=== PATIENT | female | born 1945 | race Caucasian/White ===

== ENCOUNTER 2020-02-10 14:52 | Inpatient (IN) ==
[2020-02-10 15:01] VITALS: BMI 24.2
[2020-02-10 15:21] LABS: ABG BASE EXCESS 2.9 mmol/L (-2.0-2.0); ABG HCO3 25.3 mmol/L (22-26)
[2020-02-10 15:22] LABS: ABG ALLEN TEST POS
--- NOTE | 2020-02-10 15:40 | DR.NAUSEAF ---
HPI Time Seen Time Seen by Provider: 02/10/20 15:05 Primary Care Physician Primary Care Physician: DR KWAKU VELAZQUEZ HPI Comment HPI Comment: PATIENT IS 74YR OLD FEMALE IN ER WITH COUGH, CONGESTION, BODYACHES AND SOB TIMES ONE WEEK. SHE IS WEAK, TIRED AND HAVE LOW OXYGEN SATURATION. SHE TOOK ANTIBIOTIC AND STERIOD SHE WAS COVID 19 VIRUS POSITIVE SINCE SUNDAY BUT CONTINUE TO GET WORSE. PATIENT IS NAUSEATED BUT NO VOMITING OR DIARRHEA. NO DYSURIA. Complaints Chief Complaint Doctors Comments: COUGH, WEAKNESS, BODY ACHES, SOB AND LOW OXYGEN SATURATION. Chief Complaint:: COVID Self Treatment fo Chief Complaint: STEROIDS, ZPACK COVID-19 Coronavirus risk:travel/contact w/high risk person: Yes Has patient experienced Coronavirus symptoms: Yes Coronavirus symptoms experienced: Coughing and Shortness of Breath Reviewed Nurses Notes Reviewed: Yes Source History Provided: Patient Mode of Arrival Mode of Arrival: Wheelchair Timing Onset of Chief Complaint: 02/01/20 Duration Duration: 1WK Context Onset: None (NAUSEATED.) Recent: None History of: None Quality Quality: Other (NONE.) Associated Signs and Symptoms Abdominal Pain Quality: Aching Symptoms: Anorexia PMH PMH Past Medical History: Yes Past Medical History: Arthritis and Hypothyroidism Past Surgical History: Yes 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 Past Surgical History Comment: hysterectomy Family History History of Family Medical Conditions: Yes Family Medical History: Diabetes Mellitus Social History Type of Tobacco Use: None Does any household member use tobacco: No Alcohol Use: None Do you use any recreational Drugs:: No Lives With: Spouse Lives Where: Home Travel Risk Coronavirus risk:travel/contact w/high risk person: Yes Has patient experienced Coronavirus symptoms: Yes Coronavirus symptoms experienced: Coughing and Shortness of Breath Infectious screening In the last 2 months have you had wt loss of >10#?: NO Have you had fever, night sweats or hemotysis?: No Have you traveled outside the country in the last 6 months?: No Isolation: Droplet ROS Review of Systems Constitutional: See HPI, Weakness, Fatigue and Loss of Appetite; negative Fever Eyes: No Symptoms Reported and See HPI ENTM: See HPI, Nose Discharge and Nose Congestion Respiratoy: See HPI, Moist Cough and Short of Breath; negative Wheezing Cardiovascular: No Symptoms Reported, See HPI, Chest Pain (TIGHTNESS.) and Edema Gastrointestinal/Abdominal: See HPI and Nausea Genitourinary: No Symptoms Reported and See HPI Neurological: See HPI, Headache and Weakness Musculoskeletal: See HPI, Back Pain and Muscle Pain Integumentary: No Symptoms Reported and See HPI; negative Change in Color, Rash and Juandice Hematologic/Lymphatic: No Symptoms Reported and See HPI; negative Easy Bruising and Swollen Glands Endocrine: See HPI, Increased Thirst and Decreased Appetite; negative Increased Urine Psychiatric: No Symptoms Reported and See HPI All Other Systems: Reviewed and Negative PE Vital Signs Vitals: Temperature 98.4 F Pulse Rate [Right Radial] 67 Pulse Rate 80 Respiratory Rate 20 Blood Pressure [Left Arm] 116/68 Blood Pressure 164/77 O2 Sat by Pulse Oximetry 88 General Limitations: No Limitations General Appearance: Alert and In No Apparent Distress Head Head Exam: Normal Inspection and Atraumatic Eyes Eye exam: Normal Appearance and PERRL; negative Scleral Icterus and Conjunctival Injection ENT ENT Exam: Normal Exam, Normal Oropharynx, Normal External Ear Exam and TM's Normal Bilaterally Neck Neck Exam: Normal Inspection and Trachea Midline; negative Tenderness and Lymphadenopathy Chest Chest Inspection: Normal Inspection and Symmetric Chest Wall Rise; negative Tenderness Respiratory Respiratory Exam: Normal Lung Sounds Bilat; negative Accessory Muscle Use, Chest Wall Tenderness and Respiratory Distress Respiratory Exam: Bilateral: Clear to Auscultation Cardiovascular Cardiovascular Exam: Regular Rate, Normal Rhythm and Normal Heart Sounds; negative Systolic Murmur and Diastolic Murmur Abdominal Exam Abdominal Exam: Normal Inspection, Normal Bowel Sounds and Soft; negative Tenderness Rectal Rectal Exam: Deferred External Exam: Female: Deferred : Speculum Exam (Female): Deferred : Bimanual Exam (female): Deferred Extremities Extremities Exam: Normal Inspection and Normal Capillary Refill; negative Calf Tenderness Back Back Exam: Normal Inspection; negative (R) CVA Tenderness and (L) CVA Tenderness Neurologic Neurological Exam: Alert, Oriented X3 and CN II-XII Intact; negative Motor Sen andreina Deficit Psychiatric Psychiatric Exam: Normal Affect and Normal Mood Skin Skin Exam: Dry; negative Rash MDM Additional Information Obtained Additional Information Obtained From: Old Records Differential Diagnosis Differential Diagnosis: Considerations may Include:: Other (PNEUMONIA, UTI, COVID 19 VIRUS INFECTION AND WEAKNES, HYPOXIA.) COURSE Treatment Treatment: SEE ORDERS. NS 1L 125CC/HR, DUO NEB, SOLUMEDROL 125MG IV, ROCEPHIN 1GM IVPB AND LEVAQUIN 750MG IVPB. Consultation Consultation Comments: DISCUSSED PATIENT WITH CITLALY AND HE WILL ADMIT PATIENT. Education/Counseling Education/Counseling: Patient Educated On: Treatment and Diagnosis ROR Labs Reviewed Laboratory Results Reviewed?: Yes Result Diagrams: 02/28/20 07:30 02/28/20 05:00 Laboratory: 02/10/20 16:05 Blood Blood Culture - Final 02/10/20 16:01 Blood Blood Culture - Final WBC 11.6 X10^3/uL (3.6-10.0) H 02/10/20 16:01 RBC 5.02 X10^6/uL (3.5-5.4) 02/10/20 16:01 Hgb 14.7 g/dL (12.0-16.0) 02/10/20 16:01 Hct 45.0 % (36.0-47.0) 02/10/20 16:01 MCV 89.7 fL (80.0-100.0) 02/10/20 16:01 MCH 29.3 pg (27.0-34.0) 02/10/20 16:01 MCHC 32.6 g/dL (33.0-35.0) L 02/10/20 16:01 RDW 13.9 % (11.6-16.5) 02/10/20 16:01 Plt Count 283 X10^3/uL (150.0-450.0) 02/10/20 16:01 MPV 8.4 fL (7.4-11.0) 02/10/20 16:01 Neut % (Auto) 87.3 % (42.0-75.0) H 02/10/20 16:01 Lymph % (Auto) 6.3 % (21.0-51.0) L 02/10/20 16:01 [place] % (Auto) 5.9 % (0.0-13.0) 02/10/20 16:01 Eos % (Auto) 0.4 % (0.9-2.9) L 02/10/20 16:01 Baso % (Auto) 0.1 % (0.2-1.0) L 02/10/20 16:01 Neut # (Auto) 10.1 x10^3/uL (2.2-4.8) H 02/10/20 16:01 Lymph # (Auto) 0.7 X10^3/uL (1.3-2.9) L 02/10/20 16:01 [place] # (Auto) 0.7 x10^3/uL (0.3-0.8) 02/10/20 16:01 Eos # (Auto) 0.0 x10^3/uL (0.0-0.2) 02/10/20 16:01 Baso # (Auto) 0.0 X10^3/uL (0.0-0.1) 02/10/20 16:01 Absolute Nucleated RBC 0.0 /100WBC 02/10/20 16:01 D-Dimer 2.90 ug/ml (0.0-0.57) H* 02/10/20 16:01 Sample Site Rra 02/10/20 15:19 ABG pH 7.520 (7.35-7.45) H 02/10/20 15:19 ABG pCO2 31.0 mmHg (35.0-45.0) L 02/10/20 15:19 ABG pO2 49.0 mmHg (80.0-100.0) L* 02/10/20 15:19 ABG HCO3 25.3 mmol/L (22-26) 02/10/20 15:19 ABG O2 Saturation 89.0 % (90-100) L 02/10/20 15:19 ABG Base Excess 2.9 mmol/L (-2.0-2.0) H 02/10/20 15:19 Gage Test Pos 02/10/20 15:19 A-a Gradient 62.0 mmHg 02/10/20 15:19 FiO2 21.0 02/10/20 15:19 Blood Gas Comments Pt giorgi well eb 02/10/20 15:19 Sodium 130 mmol/L (136-145) L 02/10/20 16:01 Corrected Sodium TNP 02/10/20 16:01 Potassium 3.9 mmol/L (3.5-5.1) 02/10/20 16:01 Chloride 94 mmol/L (98-107) L 02/10/20 16:01 Carbon Dioxide 28.1 mmol/L (21-32) 02/10/20 16:01 BUN 17 mg/dL (7-18) 02/10/20 16:01 Creatinine 0.84 mg/dL (0.55-1.02) 02/10/20 16:01 Est GFR (MDRD) Af Amer > 60 (>60) 02/10/20 16:01 Est GFR (MDRD) Non-Af > 60 (>60) 02/10/20 16:01 Glucose 88 mg/dL (65-99) 02/10/20 16:01 Lactic Acid 1.6 mmol/L (0.4-2.0) 02/10/20 16:01 Calcium 8.8 mg/dL (8.5-10.1) 02/10/20 16:01 Corrected Calcium 9.7 mg/dL (8.5-10.1) 02/10/20 16:01 Total Bilirubin 1.00 mg/dL (0.2-1.0) 02/10/20 16:01 AST 67 Units/L (15-37) H 02/10/20 16:01 ALT 64 Units/L (12-78) 02/10/20 16:01 Alkaline Phosphatase 125 Units/L (46-116) H 02/10/20 16:01 Creatine Kinase 52 Units/L (26-192) 02/10/20 16:01 CK-MB (CK-2) < 1.0 ng/mL (0-4.0) 02/10/20 16:01 CK/CKMB % Calc 1.9 % (<4) 02/10/20 16:01 Troponin I < 0.02 ng/mL (0-1.5) 02/10/20 16:01 Total Protein 7.4 g/dL (6.4-8.2) 02/10/20 16:01 Albumin 2.9 g/dL (3.4-5.0) L 02/10/20 16:01 Globulin 4.5 g/dL (2.5-4.5) 02/10/20 16:01 Albumin/Globulin Ratio 0.6 Ratio (1.1-2.1) L 02/10/20 16:01 XRAY XRAY Interpreted by: Radiologist (REPORT NOTED AND DISCUSSED WITH PATIENT.) and Self EKG Rate: 76 [place]: Normal Rhythm: NSR Block: None Hypertrophy: None ST: Nonsp Opioid Opioid Risk Tool Age (Alberto box if 16-45): No History of Preadolescent Sexual Abuse: No Total: 0 Total Score Risk Category: Low Risk Copyright: Chuck HALL predicting aberrant behaviors Diagnosis Discharge Problem: Hypoxia, COVID-19 virus infection Pneumonia Qualifiers: Pneumonia type: due to unspecified organism Laterality: bilateral Lung location: lower lobe of lung Qualified Code(s): J18.9 - Pneumonia, unspecified organism
[2020-02-10 16:22] LABS: BASOPHILS % (AUTO) 0.1 % (0.2-1.0); EOSINOPHILS % (AUTO) 0.4 % (0.9-2.9); HEMOGLOBIN 14.7 g/dL (12.0-16.0); LYMPHOCYTES # (AUTO) 0.7 X10^3/uL (1.3-2.9); LYMPHOCYTES % (AUTO) 6.3 % (21.0-51.0); MEAN CORPUSCULAR HEMOGLOBIN 29.3 pg (27.0-34.0); MEAN CORPUSCULAR HGB CONC 32.6 g/dL (33.0-35.0); MEAN CORPUSCULAR VOLUME 89.7 fL (80.0-100.0); MEAN PLATELET VOLUME 8.4 fL (7.4-11.0); MONOCYTES # (AUTO) 0.7 x10^3/uL (0.3-0.8); MONOCYTES % (AUTO) 5.9 % (0.0-13.0); NEUTROPHILS # (AUTO) 10.1 x10^3/uL (2.2-4.8); NEUTROPHILS % (AUTO) 87.3 % (42.0-75.0); PLATELET COUNT 283 X10^3/uL (150.0-450.0); RED BLOOD COUNT 5.02 X10^6/uL (3.5-5.4); RED CELL DISTRIBUTION WIDTH 13.9 % (11.6-16.5); WHITE BLOOD COUNT 11.6 X10^3/uL (3.6-10.0)
--- NOTE | 2020-02-10 16:25 | RAD ---
EXAM: CHEST X-RAYHISTORY: COVID-19 positive. Shortness of breath.TECHNIQUE: PA and lateral chest x-ray.COMPARISON: None available.FINDINGS:There is minimal prominence of the bronchopulmonary markings; differential diagnoses includes minimal noncardiogenic pulmonary congestion, bronchitis, and mild interstitial pneumonia in the appropriate clinical setting. Clinical correlation is advised.No focal lung consolidation/mass, pleural effusion, or pneumothorax is seen.The heart size and mediastinum are within normal limits. The visualized bony structures are within normal limits.IMPRESSION:1. Minimal prominence of the bronchopulmonary markings; DDX includes (but is not limited to) minimal noncardiogenic pulmonary congestion, bronchitis, and mild interstitial pneumonia in the appropriate clinical setting.2. Recommend clinical correlation and appropriate follow-up x-ray evaluation to ensure complete clearance as clinically warranted.3. Consider follow up noncontrast chest CT to rule out Covid pneumonia if clinically warranted.Electronically signed by: Brynn Bryan (Feb 10, 2020 16:23:23)
[2020-02-10 16:39] LABS: LACTIC ACID 1.6 mmol/L (0.4-2.0)
[2020-02-10 16:41] LABS: BLOOD UREA NITROGEN 17 mg/dL (7-18); CALCIUM 8.8 mg/dL (8.5-10.1); CARBON DIOXIDE 28.1 mmol/L (21-32); CHLORIDE 94 mmol/L (98-107); CREATININE 0.84 mg/dL (0.55-1.02); SODIUM 130 mmol/L (136-145); TROPONIN I < 0.02 ng/mL (0-1.5); eGFR NON BLACK RACES > 60 (>60)
[2020-02-10 16:45] LABS: ALANINE AMINOTRANSFERASE 64 Units/L (12-78); ALBUMIN 2.9 g/dL (3.4-5.0); ALKALINE PHOSPHATASE 125 Units/L (46-116); ASPARTATE AMINO TRANSFERASE 67 Units/L (15-37); CKMB % 1.9 % (<4); COR CA(FOR HYPOALB) 9.7 mg/dL (8.5-10.1); CREATINE KINASE 52 Units/L (26-192); CREATINE KINASE MB < 1.0 ng/mL (0-4.0); TOTAL PROTEIN 7.4 g/dL (6.4-8.2)
[2020-02-10] MEDS ORDERED: NS 100 ML IV 100 ML IV ONE (17:19)
--- NOTE | 2020-02-10 18:08 | CT ---
EXAM: CTA CHEST WITH INTRAVENOUS CONTRASTHISTORY: Shortness of breath. Hypoxia. Elevated D-dimer.TECHNIQUE: Spiral axial CT images are obtained through the chest with the administration of intravenous contrast. Coronal, sagittal and 3D MIP images are reformatted.DOSIMETRY: Total DLP 473.9 mGycm; CTDI 31.7 mGyCOMPARISON: None available.FINDINGS:CARDIOVASCULAR: There is no evidence for pulmonary embolic disease. The heart size and mediastinal vascular structures are within normal limits. There is aortic atherosclerosis seen. No thoracic aortic aneurysm or dissection is noted.MEDIASTINUM AND KISHAN: There is a small hiatal hernia (4.9 cm CC by 3.7 cm transverse by 4 cm AP). No mass lesion, lymphadenopathy, emphysema, or abnormal fluid collection is seen.LUNGS: There are extensive bilateral patchy groundglass parenchymal infiltrates which may represent acute Covid pneumonia in the appropriate clinical setting; nonspecific finding; DDx includes airspace disease (with filling of alveoli, e.g. with fluid, pus, hemorrhage, or tumor cells) and interstitial lung disease (e.g. interstitial edema, interstitial pneumonia, and interstitial fibrosis). Clinical correlation is advised. Correlation with a high resolution noncontrast chest CT may be beneficial. There is no lung mass, lung nodule, or endobronchial obstructing lesion seen. No pleural effusion or pneumothorax is evident.CHEST WALL: There are no chest wall lesions seen. T9/10 and T10/T11: Severe multilevel DDD marked by severe disc space narrowing, vacuum disc phenomenon, endplate sclerosis, and anterior lateral marginal osteophytosis. The visualized bony structures are within normal limits. No axillary lymphadenopathy is noted.UPPER ABDOMEN: Limited views through the upper abdomen demonstrate no gross acute abnormality.IMPRESSION:1. Extensive bilateral groundglass parenchymal infiltrates in keeping with acute Covid pneumonia in the appropriate clinical setting; see DDx above.2. No evidence for PE, aortic aneurysm or aortic dissection.3. No endobronchial obstructing lesion, pleural effusion, or pneumothorax seen.4. No suspicious mass or lymphadenopathy.5. Small hiatal hernia (4.9 cm CC by 3.7 cm transverse by 4 cm AP).6. T9/10 and T10/T11: Severe multilevel DDD marked by severe disc space narrowing, vacuum disc phenomenon, endplate sclerosis, and anterior lateral marginal osteophytosis.Electronically signed by: Brynn Bryan (Feb 10, 2020 18:06:49)
[2020-02-10] MEDS ORDERED: SOLU-Medrol 125 MG VIAL IVP ONE (20:27)
[2020-02-10] MEDS ORDERED: ROCEPHIN 1 GRAM IV PREMIX 1 G/50 ML IV.SOLN. IV ONE (20:28)
[2020-02-10] MEDS ORDERED: DUONEB 0.5 MG/3 MG (3 mL) NEB ONE ×2 (20:32→20:53)
[2020-02-10] MEDS ORDERED: SOLU-Medrol 125 MG VIAL ONE (20:49)
[2020-02-10] MEDS ORDERED: ROCEPHIN 1 GRAM IV PREMIX 0 G/0 ML IV.SOLN. IV ONE ×2 (20:50→23:16)
[2020-02-10] MEDS ORDERED: LEVAQUIN PREMIX IV 750 MG 750 MG/150 ML BAG IV SCH (21:00)
[2020-02-10] MEDS ORDERED: TUSSIONEX PENNKINETIC SUSP PO PRN (22:43)
[2020-02-10] MEDS ORDERED: REMDESIVIR 200 MG in NS 250 ML IV 250 ML IV SCH (22:43)
[2020-02-10] MEDS ORDERED: TORADOL 30 MG VIAL IVP ONE (23:03)
[2020-02-10] MEDS ORDERED: REMDESIVIR IV ONE (23:15)
[2020-02-10] MEDS ORDERED: TORADOL 30 MG VIAL ONE (23:15)
[2020-02-10] MEDS ORDERED: LOVENOX INJ 30 MG SYR SC ONE (23:16)
[2020-02-10] MEDS ORDERED: LEVAQUIN PREMIX IV 750 MG 750 MG/150 ML BAG IV ONE (23:16)
[2020-02-10] MEDS ORDERED: NS 250 ML IV 250 ML IV ONE (23:18)
[2020-02-10] MEDS ORDERED: NS 1000 ML 1,000 ML ONE (23:29)
[2020-02-10] MEDS: LOVENOX INJ 30 MG SYR SC SCH (23:40)
[2020-02-10] MEDS: NS 1000 ML 1,000 ML IV SCH (23:40)
[2020-02-10] MEDS: PEPCID TAB 20 MG PO SCH (23:41)
[2020-02-10] MEDS: ASCORBIC ACID INJ MULTI-DOSE VIAL 1,500 MG in NS 100 ML IV 100 ML IV SCH (23:41)
[2020-02-10] MEDS: ROBITUSSIN DM PO SCH (23:42)
[2020-02-11] MEDS: ZINC SULFATE PO SCH ×3 (01:05→21:11)
[2020-02-11] MEDS ORDERED: ASCORBIC ACID INJ MULTI-DOSE VIAL IV ONE ×3 (02:46→20:13)
[2020-02-11] MEDS ORDERED: NS 100 ML IV 100 ML IV ONE ×4 (02:47→20:13)
[2020-02-11] MEDS: ASCORBIC ACID INJ MULTI-DOSE VIAL 1,500 MG in NS 100 ML IV 100 ML IV SCH ×4 (03:40→21:12)
[2020-02-11 05:35] LABS: ABG BASE EXCESS 2.9 mmol/L (-2.0-2.0); ABG HCO3 25.5 mmol/L (22-26)
[2020-02-11 05:36] LABS: ABG ALLEN TEST POS
[2020-02-11 06:13] LABS: BASOPHILS % (AUTO) 0.1 % (0.2-1.0); EOSINOPHILS % (AUTO) 0.1 % (0.9-2.9); HEMATOCRIT 39.5 % (36.0-47.0); HEMOGLOBIN 13.3 g/dL (12.0-16.0); LYMPHOCYTES # (AUTO) 0.5 X10^3/uL (1.3-2.9); LYMPHOCYTES % (AUTO) 7.9 % (21.0-51.0); MEAN CORPUSCULAR HEMOGLOBIN 30.3 pg (27.0-34.0); MEAN CORPUSCULAR HGB CONC 33.7 g/dL (33.0-35.0); MEAN CORPUSCULAR VOLUME 90.1 fL (80.0-100.0); MEAN PLATELET VOLUME 8.7 fL (7.4-11.0); MONOCYTES # (AUTO) 0.2 x10^3/uL (0.3-0.8); MONOCYTES % (AUTO) 3.2 % (0.0-13.0); NEUTROPHILS # (AUTO) 5.6 x10^3/uL (2.2-4.8); NEUTROPHILS % (AUTO) 88.7 % (42.0-75.0); PLATELET COUNT 275 X10^3/uL (150.0-450.0); RED BLOOD COUNT 4.38 X10^6/uL (3.5-5.4); RED CELL DISTRIBUTION WIDTH 13.9 % (11.6-16.5); WHITE BLOOD COUNT 6.3 X10^3/uL (3.6-10.0)
[2020-02-11 06:18] LABS: ALANINE AMINOTRANSFERASE 52 Units/L (12-78); ALBUMIN 2.2 g/dL (3.4-5.0); ALKALINE PHOSPHATASE 107 Units/L (46-116); ASPARTATE AMINO TRANSFERASE 46 Units/L (15-37); BLOOD UREA NITROGEN 15 mg/dL (7-18); CALCIUM 8.3 mg/dL (8.5-10.1); CARBON DIOXIDE 25.8 mmol/L (21-32); CHLORIDE 95 mmol/L (98-107); COR CA(FOR HYPOALB) 9.7 mg/dL (8.5-10.1); COR NA(FOR HYPERGLY) 132 mmol/L (136-145); CREATININE 0.74 mg/dL (0.55-1.02); SODIUM 131 mmol/L (136-145); TOTAL PROTEIN 6.3 g/dL (6.4-8.2); eGFR NON BLACK RACES > 60 (>60)
[2020-02-11] MEDS ORDERED: VITAMIN A PO SCH (09:00)
[2020-02-11] MEDS ORDERED: VITAMIN D (1.25MG) PO SCH (09:00)
[2020-02-11] MEDS ORDERED: ZINC SULFATE ONE ×2 (09:19→20:11)
[2020-02-11] MEDS ORDERED: DECADRON TAB ONE (09:19)
[2020-02-11] MEDS ORDERED: PEPCID TAB 20 MG ONE ×2 (09:19→20:11)
[2020-02-11] MEDS ORDERED: TRICOR TAB 160 MG ONE (09:19)
[2020-02-11] MEDS ORDERED: LOVENOX INJ 30 MG SYR SC ONE ×2 (09:20→20:12)
[2020-02-11] MEDS ORDERED: ROBITUSSIN DM ONE ×3 (09:20→20:12)
[2020-02-11] MEDS: LIPITOR TAB 40 MG PO SCH (09:31)
[2020-02-11] MEDS: DECADRON TAB PO SCH (09:31)
[2020-02-11] MEDS: PEPCID TAB 20 MG PO SCH ×2 (09:32→21:12)
[2020-02-11] MEDS: LOVENOX INJ 30 MG SYR SC SCH ×2 (09:32→21:10)
[2020-02-11] MEDS: TRICOR TAB 160 MG PO SCH (09:33)
[2020-02-11] MEDS: ROBITUSSIN DM PO SCH ×4 (09:33→21:10)
[2020-02-11] MEDS: VSL#3 PO SCH (09:34)
[2020-02-11] MEDS ORDERED: ZOFRAN INJ 4 MG VIAL ONE ×2 (09:51→23:07)
[2020-02-11] MEDS ORDERED: TYLENOL 500 MG TAB EXTRA STRENGTH PO ONE ×2 (09:51→23:07)
[2020-02-11] MEDS: DUONEB 0.5 MG/3 MG (3 mL) NEB SCH ×4 (09:57→21:23)
[2020-02-11] MEDS: ZOFRAN INJ 4 MG VIAL IVP PRN ×2 (10:00→23:30)
[2020-02-11] MEDS: TYLENOL 500 MG TAB EXTRA STRENGTH PO PRN ×3 (10:51→23:28)
--- NOTE | 2020-02-11 13:25 | DR.H&P ---
H&P History & Physical for Day of: H&P Date: 02/11/20 Chief Complaint Chief Complaint: Shortness of breath Fever, chills, generalized weakness Allergies Allergies Allergy/AdvReac Type Severity Reaction Status Date / Time bacitracin Allergy Verified 02/10/20 17:21 [From Neosporin ([id number])] cephalexin [From Keflex] Allergy Verified 02/10/20 17:21 neomycin Allergy Verified 02/10/20 17:21 [From Neosporin ([id number])] ofloxacin [From Floxin] Allergy Verified 02/10/20 17:21 polymyxin B Allergy Verified 02/10/20 17:21 [From Neosporin ([id number])] History of Present Illness History of Present Illness: Pt is a 74 year old female past medical history Hypothyroidism, presenting with fever, chills, shortness of breath, and weakness for the past week. She reports being treated with Z-pack and steroids but did have any improvement in symptoms. Labs/imaging: COVID-19 positive(02/10), Wbc 11.6>6.3, Hgb 13.3, Plt 275, D-dimer 2.90, Na 131, K 4.4, Cr 0.74, Glucose 154, CRP 140, Troponin negative, AB.52/31/49/25/89% on RA, repeat was 7.51/32/66/25/95% on FiO2 28%. CXR: 1.Minimal prominence of the bronchopulmonary markings; DDX includes (but is not limited to) minimal noncardiogenic pulmonary congestion, bronchitis, and mild interstitial pneumoniain the appropriate clinical setting. 2. Recommend clinical correlation and appropriate follow-up x- ray evaluation to ensure complete clearance as clinically warranted. 3. Consider follow up noncontrast chest CT to rule out Covid pneumonia if clinically warranted. CTA Chest: 1.Extensive bilateral groundglass parenchymal infiltrates in keeping with acute Covid pneumonia in the appropriate clinical setting; see DDx above. 2. No evidence for PE, aortic aneurysm or aortic dissection. 3. No endobronchial obstructing lesion, pleural effusion, or pneumothorax seen. 4. No suspicious mass or lymphadenopathy. 5. Small hiatal hernia (4.9 cm CC by 3.7 cm transverse by 4 cm AP). 6. T9/10 and T10/T11: Severe multilevel DDD marked by severe disc space narrowing, vacuum disc phenomenon, endplate sclerosis, and anterior lateral marginal osteophytosis. Will start patient on: Remdesivir, Decadron, Bronchodilators, Antibiotics: Levaquin, IVF@KVO, immune supporting supplements, supplemental O2, I/S, Respiratory therapy consult, Pneumonia protocol. Pt is currently on 3L nasal cannula. Restart home medications. Will continue to monitor and follow up labs/imaging in the morning. Time spent on clinical assessment, reviewing labs and imaging, decision making, and documentation greater than 45 minutes. Past Medical History Past Medical History: Arthritis and Hypothyroidism Past Surgical History Surgical History: Hysterectomy Family History Family Medical History: Diabetes Mellitus, Cancer, NH and Hypertension Social History Does patient currently use any type of tobacco product: No Have you used tobacco products in the last 12 months: No Type of Tobacco Use: None Does any household member use tobacco: No Alcohol Use: None Drug Use: None Medications Home Medications: bacitracin [From Neosporin ([id number])] Allergy (Verified 02/10/20 17:21) cephalexin [From Keflex] Allergy (Verified 02/10/20 17:21) neomycin [From Neosporin ([id number]-iwz-zryit)] Allergy (Verified 02/10/20 17:21) ofloxacin [From Floxin] Allergy (Verified 02/10/20 17:21) polymyxin B [From Neosporin ([id number])] Allergy (Verified 02/10/20 17:21) Labs Result Diagrams: 02/11/20 04:20 02/11/20 04:20 Labs: Laboratory WBC 6.3 X10^3/uL (3.6-10.0) 02/11/20 04:20 RBC 4.38 X10^6/uL (3.5-5.4) 02/11/20 04:20 Hgb 13.3 g/dL (12.0-16.0) 02/11/20 04:20 Hct 39.5 % (36.0-47.0) 02/11/20 04:20 MCV 90.1 fL (80.0-100.0) 02/11/20 04:20 MCH 30.3 pg (27.0-34.0) 02/11/20 04:20 MCHC 33.7 g/dL (33.0-35.0) 02/11/20 04:20 RDW 13.9 % (11.6-16.5) 02/11/20 04:20 Plt Count 275 X10^3/uL (150.0-450.0) 02/11/20 04:20 MPV 8.7 fL (7.4-11.0) 02/11/20 04:20 Neut % (Auto) 88.7 % (42.0-75.0) H 02/11/20 04:20 Lymph % (Auto) 7.9 % (21.0-51.0) L 02/11/20 04:20 [place] % (Auto) 3.2 % (0.0-13.0) 02/11/20 04:20 Eos % (Auto) 0.1 % (0.9-2.9) L 02/11/20 04:20 Baso % (Auto) 0.1 % (0.2-1.0) L 02/11/20 04:20 Neut # (Auto) 5.6 x10^3/uL (2.2-4.8) H 02/11/20 04:20 Lymph # (Auto) 0.5 X10^3/uL (1.3-2.9) L 02/11/20 04:20 [place] # (Auto) 0.2 x10^3/uL (0.3-0.8) L 02/11/20 04:20 Eos # (Auto) 0.0 x10^3/uL (0.0-0.2) 02/11/20 04:20 Baso # (Auto) 0.0 X10^3/uL (0.0-0.1) 02/11/20 04:20 Absolute Nucleated RBC 0.0 /100WBC 02/11/20 04:20 D-Dimer 2.90 ug/ml (0.0-0.57) H* 02/10/20 16:01 Sample Site Lrad 02/11/20 05:31 ABG pH 7.510 (7.35-7.45) H 02/11/20 05:31 ABG pCO2 32.0 mmHg (35.0-45.0) L 02/11/20 05:31 ABG pO2 66.0 mmHg (80.0-100.0) L 02/11/20 05:31 ABG HCO3 25.5 mmol/L (22-26) 02/11/20 05:31 ABG O2 Saturation 95.0 % (90-100) 02/11/20 05:31 ABG Base Excess 2.9 mmol/L (-2.0-2.0) H 02/11/20 05:31 Gage Test Pos 02/11/20 05:31 A-a Gradient 94.0 mmHg 02/11/20 05:31 FiO2 28.0 02/11/20 05:31 Blood Gas Comments [place] abg well-mtf 02/11/20 05:31 Sodium 131 mmol/L (136-145) L 02/11/20 04:20 Corrected Sodium 132 mmol/L (136-145) L 02/11/20 04:20 Potassium 4.4 mmol/L (3.5-5.1) 02/11/20 04:20 Chloride 95 mmol/L (98-107) L 02/11/20 04:20 Carbon Dioxide 25.8 mmol/L (21-32) 02/11/20 04:20 BUN 15 mg/dL (7-18) 02/11/20 04:20 Creatinine 0.74 mg/dL (0.55-1.02) 02/11/20 04:20 Est GFR (MDRD) Af Amer > 60 (>60) 02/11/20 04:20 Est GFR (MDRD) Non-Af > 60 (>60) 02/11/20 04:20 Glucose 154 mg/dL (65-99) H 02/11/20 04:20 Lactic Acid 1.6 mmol/L (0.4-2.0) 02/10/20 16:01 Calcium 8.3 mg/dL (8.5-10.1) L 02/11/20 04:20 Corrected Calcium 9.7 mg/dL (8.5-10.1) 02/11/20 04:20 Ferritin 682 ng/mL (8-252) H 02/11/20 04:20 Total Bilirubin 0.40 mg/dL (0.2-1.0) 02/11/20 04:20 AST 46 Units/L (15-37) H 02/11/20 04:20 ALT 52 Units/L (12-78) 02/11/20 04:20 Alkaline Phosphatase 107 Units/L (46-116) 02/11/20 04:20 Creatine Kinase 52 Units/L (26-192) 02/10/20 16:01 CK-MB (CK-2) < 1.0 ng/mL (0-4.0) 02/10/20 16:01 CK/CKMB % Calc 1.9 % (<4) 02/10/20 16:01 Troponin I < 0.02 ng/mL (0-1.5) 02/10/20 23:00 C-Reactive Protein 140.90 mg/L (0-3.0) H 02/11/20 04:20 Total Protein 6.3 g/dL (6.4-8.2) L 02/11/20 04:20 Albumin 2.2 g/dL (3.4-5.0) L 02/11/20 04:20 Globulin 4.1 g/dL (2.5-4.5) 02/11/20 04:20 Albumin/Globulin Ratio 0.5 Ratio (1.1-2.1) L 02/11/20 04:20 SARS CoV-2 RNA Rapid GREGG Positive (NEGATIVE) A 02/11/20 02:40 Review of Systems Constitutional: Fever, Chills and Weakness Eyes: No Symptoms Reported ENT: No Symptoms Reported Respiratory: Cough, Shortness of Breath and Wheezing Cardiovascular: No Symptoms Reported Gastrointestinal: No Symptoms Reported Genitourinary: No Symptoms Reported Musculoskeletal: No Symptoms Reported Skin: No Symptoms Reported Neurological: No Symptoms Reported Physical Exam Vital Signs: Temperature 97.8 F Pulse Rate [Right Radial] 77 Pulse Rate 69 Respiratory Rate 20 Blood Pressure [Left Arm] 132/63 Blood Pressure 164/77 O2 Sat by Pulse Oximetry 93 Oriented: Normal Eyes: Normal Ear: Normal Nose: Normal Throat: Normal Respiratory: Diminished Throughout, Rales Throughout and Wheezes Throughout Cardiovascular: Normal : Normal Auscultation: Bowel Sounds: Normal Palpation: Normal Tenderness: Normal Skin: Normal Musculoskeletal: Normal Psychiatric: Normal Mood Description: Calm and Appropriate Affect: Normal Speech Pattern: Clear and Appropriate Assessment/Plan (1) Pneumonia due to COVID-19 virus: Status: Acute Plan: Remdesivir, Bronchodilators, Decadron, Zosyn, I/S, supplemental O2 (2) Hypoxia: Status: Acute Review H&P Reviewed: Yes Patient was examined?: Yes
[2020-02-11] MEDS ORDERED: DUONEB 0.5 MG/3 MG (3 mL) NEB ONE (17:12)
[2020-02-11] MEDS ORDERED: PROTONIX TAB 40 MG PO ONE (20:11)
[2020-02-11] MEDS ORDERED: REMDESIVIR IV ONE (20:12)
[2020-02-11] MEDS ORDERED: LEVAQUIN PREMIX IV 750 MG 750 MG/150 ML BAG IV ONE (20:12)
[2020-02-11] MEDS ORDERED: NS 250 ML IV 250 ML IV ONE (20:15)
[2020-02-11] MEDS ORDERED: NS 1000 ML 1,000 ML ONE (21:08)
[2020-02-11] MEDS: REMDESIVIR 100 MG in NS 250 ML IV 250 ML IV SCH (21:11)
[2020-02-11] MEDS: PROTONIX TAB 40 MG PO SCH (21:12)
[2020-02-11] MEDS: LEVAQUIN PREMIX IV 750 MG 750 MG/150 ML BAG IV SCH (21:14)
[2020-02-11] MEDS: NS 1000 ML 1,000 ML IV SCH (22:45)
[2020-02-11] MEDS ORDERED: IVERMECTIN PO SCH (23:00)
[2020-02-11] MEDS ORDERED: IVERMECTIN ONE (23:07)
[2020-02-12] MEDS ORDERED: NS 100 ML IV 100 ML IV ONE ×3 (03:03→13:54)
[2020-02-12] MEDS: ASCORBIC ACID INJ MULTI-DOSE VIAL 1,500 MG in NS 100 ML IV 100 ML IV SCH (03:13)
--- NOTE | 2020-02-12 06:48 | RAD ---
HISTORYFollow-up COVID-19STUDYChest AP [id number]/29/2020 plain film and CTA chestFINDINGSThe heart is normal in size. No congestive heart failure is noted. The desire are normal. Bilateral interstitial and peripheral ground-glass infiltrates are again identified slightly increased when compared to the prior examination. No pleural effusions are identified. Bony thorax is unremarkable.IMPRESSIONBilateral interstitial and confluent patchy ground-glass infiltrates increasing when compared to the prior examination.Electronically signed by: RAGINI CERRATO (Feb 12, 2020 06:46:45)
[2020-02-12 06:54] LABS: BASOPHILS % (AUTO) 0.1 % (0.2-1.0); HEMATOCRIT 38.1 % (36.0-47.0); HEMOGLOBIN 12.5 g/dL (12.0-16.0); LYMPHOCYTES # (AUTO) 0.7 X10^3/uL (1.3-2.9); LYMPHOCYTES % (AUTO) 4.8 % (21.0-51.0); MEAN CORPUSCULAR HEMOGLOBIN 29.6 pg (27.0-34.0); MEAN CORPUSCULAR HGB CONC 32.9 g/dL (33.0-35.0); MEAN PLATELET VOLUME 8.4 fL (7.4-11.0); MONOCYTES # (AUTO) 0.9 x10^3/uL (0.3-0.8); MONOCYTES % (AUTO) 5.9 % (0.0-13.0); NEUTROPHILS # (AUTO) 13.5 x10^3/uL (2.2-4.8); NEUTROPHILS % (AUTO) 89.2 % (42.0-75.0); PLATELET COUNT 306 X10^3/uL (150.0-450.0); RED BLOOD COUNT 4.23 X10^6/uL (3.5-5.4); RED CELL DISTRIBUTION WIDTH 13.3 % (11.6-16.5); WHITE BLOOD COUNT 15.1 X10^3/uL (3.6-10.0)
[2020-02-12 07:06] LABS: ALANINE AMINOTRANSFERASE 62 Units/L (12-78); ALBUMIN 2.2 g/dL (3.4-5.0); ALKALINE PHOSPHATASE 108 Units/L (46-116); ASPARTATE AMINO TRANSFERASE 62 Units/L (15-37); BLOOD UREA NITROGEN 13 mg/dL (7-18); CALCIUM 8.5 mg/dL (8.5-10.1); CARBON DIOXIDE 25.5 mmol/L (21-32); CHLORIDE 99 mmol/L (98-107); COR CA(FOR HYPOALB) 9.9 mg/dL (8.5-10.1); COR NA(FOR HYPERGLY) 136 mmol/L (136-145); SODIUM 135 mmol/L (136-145); eGFR NON BLACK RACES > 60 (>60)
[2020-02-12] MEDS ORDERED: ROBITUSSIN DM ONE (08:49)
[2020-02-12] MEDS ORDERED: PROTONIX TAB 40 MG PO ONE (08:49)
[2020-02-12] MEDS: PROTONIX TAB 40 MG PO SCH ×2 (09:15→21:27)
[2020-02-12] MEDS: ROBITUSSIN DM PO SCH ×4 (09:16→21:27)
[2020-02-12] MEDS: VITAMIN A PO SCH (09:16)
[2020-02-12] MEDS: ASCORBIC ACID INJ MULTI-DOSE VIAL 1,500 MG in NS 50 ML IV 50 ML IV SCH ×3 (09:16→21:26)
[2020-02-12] MEDS: LOVENOX INJ 30 MG SYR SC SCH ×2 (09:17→21:27)
[2020-02-12] MEDS: LIPITOR TAB 40 MG PO SCH (09:17)
[2020-02-12] MEDS: PEPCID TAB 20 MG PO SCH ×2 (09:17→21:31)
[2020-02-12] MEDS: DECADRON TAB PO SCH (09:17)
[2020-02-12] MEDS: VITAMIN D3 125 mcg (5,000 UNITS) PO SCH (09:18)
[2020-02-12] MEDS: VSL#3 PO SCH (09:18)
[2020-02-12] MEDS: ZINC SULFATE PO SCH ×2 (09:18→21:27)
[2020-02-12] MEDS: SYNTHROID 50 mcg TAB PO SCH (09:18)
[2020-02-12] MEDS: DUONEB 0.5 MG/3 MG (3 mL) NEB SCH ×4 (09:18→19:50)
[2020-02-12] MEDS: TRICOR TAB 160 MG PO SCH (09:18)
[2020-02-12] MEDS ORDERED: DUONEB 0.5 MG/3 MG (3 mL) NEB ONE (13:23)
[2020-02-12] MEDS ORDERED: ASCORBIC ACID INJ MULTI-DOSE VIAL IV ONE (13:55)
[2020-02-12] MEDS: REMDESIVIR 100 MG in NS 250 ML IV 250 ML IV SCH (21:28)
[2020-02-12] MEDS: TYLENOL 500 MG TAB EXTRA STRENGTH PO PRN (23:56)
[2020-02-12] MEDS: LEVAQUIN PREMIX IV 750 MG 750 MG/150 ML BAG IV SCH (23:57)
[2020-02-13] MEDS: ASCORBIC ACID INJ MULTI-DOSE VIAL 1,500 MG in NS 50 ML IV 50 ML IV SCH ×4 (02:41→21:33)
[2020-02-13 06:14] LABS: ALANINE AMINOTRANSFERASE 71 Units/L (12-78); ALKALINE PHOSPHATASE 110 Units/L (46-116); ASPARTATE AMINO TRANSFERASE 76 Units/L (15-37); BLOOD UREA NITROGEN 18 mg/dL (7-18); CALCIUM 8.1 mg/dL (8.5-10.1); CARBON DIOXIDE 26.5 mmol/L (21-32); CHLORIDE 101 mmol/L (98-107); COR CA(FOR HYPOALB) 9.7 mg/dL (8.5-10.1); CREATININE 0.78 mg/dL (0.55-1.02); SODIUM 137 mmol/L (136-145); TOTAL PROTEIN 5.3 g/dL (6.4-8.2); eGFR NON BLACK RACES > 60 (>60)
[2020-02-13 06:15] LABS: BASOPHILS % (AUTO) 0 % (0.2-1.0); HEMATOCRIT 33.9 % (36.0-47.0); HEMOGLOBIN 11.3 g/dL (12.0-16.0); LYMPHOCYTES # (AUTO) 0.6 X10^3/uL (1.3-2.9); LYMPHOCYTES % (AUTO) 4.1 % (21.0-51.0); MEAN CORPUSCULAR HGB CONC 33.4 g/dL (33.0-35.0); MEAN PLATELET VOLUME 8.1 fL (7.4-11.0); MONOCYTES # (AUTO) 0.7 x10^3/uL (0.3-0.8); MONOCYTES % (AUTO) 4.6 % (0.0-13.0); NEUTROPHILS # (AUTO) 12.9 x10^3/uL (2.2-4.8); NEUTROPHILS % (AUTO) 91.3 % (42.0-75.0); PLATELET COUNT 303 X10^3/uL (150.0-450.0); RED BLOOD COUNT 3.77 X10^6/uL (3.5-5.4); WHITE BLOOD COUNT 14.2 X10^3/uL (3.6-10.0)
[2020-02-13] MEDS: NS 1000 ML 1,000 ML IV SCH ×2 (07:12→21:33)
[2020-02-13 07:21] LABS: BAND NEUTROPHILS % 1 % (0-10); PLATELET MORPHOLOGY COMMENT NORMAL (NORMAL)
[2020-02-13] MEDS: LOVENOX INJ 30 MG SYR SC SCH ×2 (09:08→21:34)
[2020-02-13] MEDS: ROBITUSSIN DM PO SCH ×4 (09:08→21:34)
[2020-02-13] MEDS: VSL#3 PO SCH (09:08)
[2020-02-13] MEDS: VITAMIN A PO SCH (09:08)
[2020-02-13] MEDS: LIPITOR TAB 40 MG PO SCH (09:09)
[2020-02-13] MEDS: PROTONIX TAB 40 MG PO SCH ×2 (09:09→21:34)
[2020-02-13] MEDS: TRICOR TAB 160 MG PO SCH (09:09)
[2020-02-13] MEDS: VITAMIN D3 125 mcg (5,000 UNITS) PO SCH (09:09)
[2020-02-13] MEDS: DECADRON TAB PO SCH (09:10)
[2020-02-13] MEDS: ZINC SULFATE PO SCH ×2 (09:10→21:34)
[2020-02-13] MEDS: SYNTHROID 50 mcg TAB PO SCH (09:11)
[2020-02-13] MEDS: PEPCID TAB 20 MG PO SCH ×2 (09:13→21:35)
[2020-02-13] MEDS: DUONEB 0.5 MG/3 MG (3 mL) NEB SCH ×4 (09:45→21:20)
[2020-02-13] MEDS: TYLENOL 500 MG TAB EXTRA STRENGTH PO PRN (14:17)
[2020-02-13] MEDS: LEVAQUIN PREMIX IV 750 MG 750 MG/150 ML BAG IV SCH (21:33)
[2020-02-13] MEDS: REMDESIVIR 100 MG in NS 250 ML IV 250 ML IV SCH (21:34)
[2020-02-14] MEDS: ASCORBIC ACID INJ MULTI-DOSE VIAL 1,500 MG in NS 50 ML IV 50 ML IV SCH ×4 (03:03→21:34)
[2020-02-14 07:02] LABS: ALANINE AMINOTRANSFERASE 84 Units/L (12-78); ALBUMIN 1.9 g/dL (3.4-5.0); ALKALINE PHOSPHATASE 145 Units/L (46-116); ASPARTATE AMINO TRANSFERASE 75 Units/L (15-37); BLOOD UREA NITROGEN 17 mg/dL (7-18); CALCIUM 8.4 mg/dL (8.5-10.1); CARBON DIOXIDE 26.3 mmol/L (21-32); CHLORIDE 102 mmol/L (98-107); COR CA(FOR HYPOALB) 10.1 mg/dL (8.5-10.1); CREATININE 0.65 mg/dL (0.55-1.02); SODIUM 136 mmol/L (136-145); TOTAL PROTEIN 5.4 g/dL (6.4-8.2); eGFR NON BLACK RACES > 60 (>60)
[2020-02-14 07:08] LABS: BASOPHILS % (AUTO) 0 % (0.2-1.0); EOSINOPHILS % (AUTO) 0.1 % (0.9-2.9); HEMATOCRIT 33.8 % (36.0-47.0); HEMOGLOBIN 11.3 g/dL (12.0-16.0); LYMPHOCYTES # (AUTO) 0.6 X10^3/uL (1.3-2.9); LYMPHOCYTES % (AUTO) 4.7 % (21.0-51.0); MEAN CORPUSCULAR HEMOGLOBIN 29.8 pg (27.0-34.0); MEAN CORPUSCULAR HGB CONC 33.4 g/dL (33.0-35.0); MEAN CORPUSCULAR VOLUME 89.3 fL (80.0-100.0); MEAN PLATELET VOLUME 8.6 fL (7.4-11.0); MONOCYTES # (AUTO) 0.3 x10^3/uL (0.3-0.8); MONOCYTES % (AUTO) 2.8 % (0.0-13.0); NEUTROPHILS # (AUTO) 10.9 x10^3/uL (2.2-4.8); NEUTROPHILS % (AUTO) 92.4 % (42.0-75.0); PLATELET COUNT 267 X10^3/uL (150.0-450.0); RED BLOOD COUNT 3.79 X10^6/uL (3.5-5.4); RED CELL DISTRIBUTION WIDTH 13.6 % (11.6-16.5); WHITE BLOOD COUNT 11.8 X10^3/uL (3.6-10.0)
[2020-02-14 07:50] LABS: BAND NEUTROPHILS % 1 % (0-10); PLATELET MORPHOLOGY COMMENT NORMAL (NORMAL)
[2020-02-14] MEDS: NS 1000 ML 1,000 ML IV SCH (08:24)
[2020-02-14] MEDS: LOVENOX INJ 30 MG SYR SC SCH ×2 (08:36→21:35)
[2020-02-14] MEDS: VITAMIN D3 125 mcg (5,000 UNITS) PO SCH (08:36)
[2020-02-14] MEDS: TRICOR TAB 160 MG PO SCH (08:37)
[2020-02-14] MEDS: ZINC SULFATE PO SCH ×2 (08:37→21:35)
[2020-02-14] MEDS: VSL#3 PO SCH (08:37)
[2020-02-14] MEDS: VITAMIN A PO SCH (08:37)
[2020-02-14] MEDS: ROBITUSSIN DM PO SCH ×4 (08:37→21:35)
[2020-02-14] MEDS: PROTONIX TAB 40 MG PO SCH ×2 (08:37→21:35)
[2020-02-14] MEDS: SYNTHROID 50 mcg TAB PO SCH (08:38)
[2020-02-14] MEDS: DECADRON TAB PO SCH (08:38)
[2020-02-14] MEDS: DUONEB 0.5 MG/3 MG (3 mL) NEB SCH ×4 (09:00→21:15)
[2020-02-14] MEDS: PEPCID TAB 20 MG PO SCH ×2 (09:51→21:35)
[2020-02-14] MEDS: LIPITOR TAB 40 MG PO SCH (09:52)
[2020-02-14] MEDS: TYLENOL 500 MG TAB EXTRA STRENGTH PO PRN (10:18)
[2020-02-14] MEDS: IVERMECTIN PO SCH (12:09)
[2020-02-14] MEDS: REMDESIVIR 100 MG in NS 250 ML IV 250 ML IV SCH (21:35)
[2020-02-14] MEDS: LEVAQUIN PREMIX IV 750 MG 750 MG/150 ML BAG IV SCH (21:35)
[2020-02-15] MEDS: ASCORBIC ACID INJ MULTI-DOSE VIAL 1,500 MG in NS 50 ML IV 50 ML IV SCH ×4 (03:30→21:26)
[2020-02-15 06:06] LABS: BASOPHILS % (AUTO) 0 % (0.2-1.0); EOSINOPHILS % (AUTO) 0.1 % (0.9-2.9); HEMATOCRIT 36.1 % (36.0-47.0); HEMOGLOBIN 11.8 g/dL (12.0-16.0); LYMPHOCYTES # (AUTO) 0.5 X10^3/uL (1.3-2.9); LYMPHOCYTES % (AUTO) 3.7 % (21.0-51.0); MEAN CORPUSCULAR HEMOGLOBIN 29.4 pg (27.0-34.0); MEAN CORPUSCULAR HGB CONC 32.7 g/dL (33.0-35.0); MEAN PLATELET VOLUME 8.6 fL (7.4-11.0); MONOCYTES # (AUTO) 0.3 x10^3/uL (0.3-0.8); MONOCYTES % (AUTO) 2.5 % (0.0-13.0); NEUTROPHILS % (AUTO) 93.7 % (42.0-75.0); PLATELET COUNT 264 X10^3/uL (150.0-450.0); RED BLOOD COUNT 4.02 X10^6/uL (3.5-5.4); RED CELL DISTRIBUTION WIDTH 13.9 % (11.6-16.5); WHITE BLOOD COUNT 13.9 X10^3/uL (3.6-10.0)
[2020-02-15 06:18] LABS: ALANINE AMINOTRANSFERASE 70 Units/L (12-78); ALBUMIN 1.9 g/dL (3.4-5.0); ALKALINE PHOSPHATASE 163 Units/L (46-116); ASPARTATE AMINO TRANSFERASE 55 Units/L (15-37); BLOOD UREA NITROGEN 15 mg/dL (7-18); CALCIUM 8.3 mg/dL (8.5-10.1); CARBON DIOXIDE 29.7 mmol/L (21-32); CHLORIDE 102 mmol/L (98-107); COR NA(FOR HYPERGLY) 138 mmol/L (136-145); CREATININE 0.72 mg/dL (0.55-1.02); SODIUM 138 mmol/L (136-145); TOTAL PROTEIN 5.2 g/dL (6.4-8.2); eGFR NON BLACK RACES > 60 (>60)
[2020-02-15] MEDS: NS 1000 ML 1,000 ML IV SCH (07:12)
[2020-02-15 07:26] LABS: PLATELET MORPHOLOGY COMMENT NORMAL (NORMAL)
[2020-02-15] MEDS: DECADRON TAB PO SCH (08:34)
[2020-02-15] MEDS: VITAMIN A PO SCH (08:35)
[2020-02-15] MEDS: VSL#3 PO SCH (08:35)
[2020-02-15] MEDS: LIPITOR TAB 40 MG PO SCH (08:35)
[2020-02-15] MEDS: ZINC SULFATE PO SCH ×2 (08:35→21:27)
[2020-02-15] MEDS: VITAMIN D3 125 mcg (5,000 UNITS) PO SCH (08:35)
[2020-02-15] MEDS: PROTONIX TAB 40 MG PO SCH ×2 (08:36→21:29)
[2020-02-15] MEDS: ROBITUSSIN DM PO SCH ×4 (08:36→21:27)
[2020-02-15] MEDS: SYNTHROID 50 mcg TAB PO SCH (08:36)
[2020-02-15] MEDS: TRICOR TAB 160 MG PO SCH (08:36)
[2020-02-15] MEDS: LOVENOX INJ 30 MG SYR SC SCH ×2 (08:42→21:26)
[2020-02-15] MEDS: PEPCID TAB 20 MG PO SCH ×2 (08:44→21:30)
[2020-02-15] MEDS: DUONEB 0.5 MG/3 MG (3 mL) NEB SCH ×4 (08:57→20:35)
[2020-02-15] MEDS ORDERED: NS 50 ML IV 50 ML IV ONE (09:38)
[2020-02-15 10:41] LABS: BILIRUBIN,URINE NEGATIVE (NEGATIVE); BLOOD/HEMOGLOBIN,URINE NEGATIVE (NEGATIVE); GLUCOSE, URINE NEGATIVE (NEGATIVE); KETONES,URINE NEGATIVE (NEGATIVE); LEUKOCYTE ESTERASE ,URINE NEGATIVE (NEGATIVE); NITRITES,URINE NEGATIVE (NEGATIVE); PROTEIN,URINE NEGATIVE (NEGATIVE); UROBILINOGEN,URINE NORMAL (NORMAL)
[2020-02-15 10:51] LABS: APPEARANCE,URINE CLEAR (CLEAR); COLOR,URINE YELLOW (YELLOW)
[2020-02-15] MEDS: NEURONTIN CAP 300 MG PO SCH (21:27)
[2020-02-15] MEDS: REMDESIVIR 100 MG in NS 250 ML IV 250 ML IV SCH (21:28)
[2020-02-15] MEDS: LEVAQUIN PREMIX IV 750 MG 750 MG/150 ML BAG IV SCH (21:29)
[2020-02-16] MEDS: ASCORBIC ACID INJ MULTI-DOSE VIAL 1,500 MG in NS 50 ML IV 50 ML IV SCH ×4 (02:07→21:20)
[2020-02-16 06:19] LABS: BASOPHILS % (AUTO) 0.1 % (0.2-1.0); EOSINOPHILS % (AUTO) 0.2 % (0.9-2.9); HEMATOCRIT 34.7 % (36.0-47.0); HEMOGLOBIN 11.5 g/dL (12.0-16.0); LYMPHOCYTES # (AUTO) 0.4 X10^3/uL (1.3-2.9); LYMPHOCYTES % (AUTO) 2.6 % (21.0-51.0); MEAN CORPUSCULAR HEMOGLOBIN 29.8 pg (27.0-34.0); MEAN CORPUSCULAR HGB CONC 33.1 g/dL (33.0-35.0); MEAN PLATELET VOLUME 8.7 fL (7.4-11.0); MONOCYTES # (AUTO) 0 x10^3/uL (0.3-0.8); MONOCYTES % (AUTO) 0.2 % (0.0-13.0); NEUTROPHILS # (AUTO) 15.9 x10^3/uL (2.2-4.8); NEUTROPHILS % (AUTO) 96.9 % (42.0-75.0); PLATELET COUNT 224 X10^3/uL (150.0-450.0); RED BLOOD COUNT 3.85 X10^6/uL (3.5-5.4); RED CELL DISTRIBUTION WIDTH 13.9 % (11.6-16.5); WHITE BLOOD COUNT 16.4 X10^3/uL (3.6-10.0)
[2020-02-16 06:42] LABS: ALANINE AMINOTRANSFERASE 62 Units/L (12-78); ALBUMIN 1.8 g/dL (3.4-5.0); ALKALINE PHOSPHATASE 171 Units/L (46-116); ASPARTATE AMINO TRANSFERASE 56 Units/L (15-37); BLOOD UREA NITROGEN 17 mg/dL (7-18); CALCIUM 8.2 mg/dL (8.5-10.1); CARBON DIOXIDE 29.6 mmol/L (21-32); CHLORIDE 99 mmol/L (98-107); CREATININE 0.69 mg/dL (0.55-1.02); SODIUM 134 mmol/L (136-145); TOTAL PROTEIN 5.3 g/dL (6.4-8.2); eGFR NON BLACK RACES > 60 (>60)
[2020-02-16 07:03] LABS: PLATELET MORPHOLOGY COMMENT NORMAL (NORMAL)
--- NOTE | 2020-02-16 08:10 | RAD ---
HISTORYCOVID+STUDYCHEST, 1 [id number]/31/2020FINDINGSThe trachea is midline. The cardiac silhouette is stable given rotation. Similar bilateral airspace opacities. The bony thorax is unremarkable.IMPRESSIONNo significant change.Electronically signed by: RAGINI CERRATO (Feb 16, 2020 08:08:05)
[2020-02-16] MEDS: DUONEB 0.5 MG/3 MG (3 mL) NEB SCH ×3 (09:05→21:10)
[2020-02-16] MEDS: ZINC SULFATE PO SCH ×2 (10:20→20:16)
[2020-02-16] MEDS: VSL#3 PO SCH (10:20)
[2020-02-16] MEDS: VITAMIN A PO SCH (10:21)
[2020-02-16] MEDS: TRICOR TAB 160 MG PO SCH (10:22)
[2020-02-16] MEDS: ROBITUSSIN DM PO SCH ×4 (10:23→20:16)
[2020-02-16] MEDS: PEPCID TAB 20 MG PO SCH ×2 (10:24→20:16)
[2020-02-16] MEDS: SYNTHROID 50 mcg TAB PO SCH (10:24)
[2020-02-16] MEDS: LIPITOR TAB 40 MG PO SCH (10:24)
[2020-02-16] MEDS: PROTONIX TAB 40 MG PO SCH ×2 (10:24→20:16)
[2020-02-16] MEDS: LOVENOX INJ 30 MG SYR SC SCH ×2 (10:25→20:16)
[2020-02-16] MEDS: DECADRON TAB PO SCH (10:25)
[2020-02-16] MEDS: VITAMIN D3 125 mcg (5,000 UNITS) PO SCH (10:25)
[2020-02-16] MEDS: IVERMECTIN PO SCH (13:25)
--- NOTE | 2020-02-16 19:26 | PCM.PROG ---
Progress Note Progress Note for Day of Date of Exam: 02/16/20 Subjective Subjective: Pt is a 74 year old female past medical history Hypothyroidism, admitted for COVID-19 pneumonia (positive on 02/10). This morning she reports minimal improvement in her breathing compared to yesterday. She admits she has been feeling anxious. No acute events overnight. Labs/imaging: Wbc 16.4, Hgb 11.5, Plt 224, Na 134, K 4.2, Cr 0.69, Glucose 100, CXR: no significant change, Bilateral interstitial and confluent patchy ground-glass infiltrates. Her hospital/treatment course includes: Remdesivir, Decadron, Bronchodilators, Antibiotics: Levaquin, IVF@KVO, immune supporting supplements, supplemental O2, I/S, Respiratory therapy consult, Pneumonia protocol. Pt is currently on heated high flow oxygen with FiO2 of 68%. Will wean as tolerated, otherwise continue current treatment plan. Add on ativan for anxiety. Will continue to monitor and follow up labs/imaging in the morning. Past Medical Family Social History Past Med/Fam/Surg Hx: No changes since H&P Allergies: Allergies bacitracin [From Neosporin ([id number])] Allergy (Verified 02/10/20 17:21) cephalexin [From Keflex] Allergy (Verified 02/10/20 17:21) neomycin [From Neosporin ([id number])] Allergy (Verified 02/10/20 17:21) ofloxacin [From Floxin] Allergy (Verified 02/10/20 17:21) polymyxin B [From Neosporin ([id number])] Allergy (Verified 02/10/20 17:21) Review of Systems ROS: No change since H&P Vital Signs and I&O's Vital Signs: Temperature 99.7 F Pulse Rate [Right Radial] 94 Pulse Rate 85 Respiratory Rate 22 Blood Pressure [Left Arm] 115/65 Blood Pressure 164/77 O2 Sat by Pulse Oximetry 96 Intake and Output: Intake & Output 02/13/20 02/14/20 02/15/20 02/16/20 23:59 23:59 23:59 23:59 Intake Total 2288 / 2288 2930 / 2930 2427 / 2427 684 / 684 Output Total 2475 / 2475 700 / 700 Balance 2288 / 2288 2930 / 2930 -48 / -48 - / -16 Physical Exam Oriented: Normal Eyes: Normal Ear: Normal Nose: Normal Throat: Normal Respiratory: Diminished Cardiovascular: Normal : Normal Auscultation: Bowel Sounds: Normal Tenderness: Normal Skin: Normal Musculoskeletal: Normal Psychiatric: Normal Mood Description: Calm and Appropriate Affect: Normal Speech Pattern: Clear and Appropriate Laboratory and Diagnostics Result Diagrams: 02/16/20 05:15 02/16/20 05:15 Labs: 02/10/20 16:05 Blood Blood Culture - Final 02/10/20 16:01 Blood Blood Culture - Final Laboratory WBC 16.4 X10^3/uL (3.6-10.0) H 02/16/20 05:15 RBC 3.85 X10^6/uL (3.5-5.4) 02/16/20 05:15 Hgb 11.5 g/dL (12.0-16.0) L 02/16/20 05:15 Hct 34.7 % (36.0-47.0) L 02/16/20 05:15 MCV 90.0 fL (80.0-100.0) 02/16/20 05:15 MCH 29.8 pg (27.0-34.0) 02/16/20 05:15 MCHC 33.1 g/dL (33.0-35.0) 02/16/20 05:15 RDW 13.9 % (11.6-16.5) 02/16/20 05:15 Plt Count 224 X10^3/uL (150.0-450.0) 02/16/20 05:15 Plt Count Comment Adequate (ADEQUATE) 02/16/20 05:15 MPV 8.7 fL (7.4-11.0) 02/16/20 05:15 Neut % (Auto) 96.9 % (42.0-75.0) H 02/16/20 05:15 Lymph % (Auto) 2.6 % (21.0-51.0) L 02/16/20 05:15 [place] % (Auto) 0.2 % (0.0-13.0) 02/16/20 05:15 Eos % (Auto) 0.2 % (0.9-2.9) L 02/16/20 05:15 Baso % (Auto) 0.1 % (0.2-1.0) L 02/16/20 05:15 Neut # (Auto) 15.9 x10^3/uL (2.2-4.8) H 02/16/20 05:15 Lymph # (Auto) 0.4 X10^3/uL (1.3-2.9) L 02/16/20 05:15 [place] # (Auto) 0 x10^3/uL (0.3-0.8) L 02/16/20 05:15 Eos # (Auto) 0.0 x10^3/uL (0.0-0.2) 02/16/20 05:15 Baso # (Auto) 0.0 X10^3/uL (0.0-0.1) 02/16/20 05:15 Absolute Nucleated RBC 0.0 /100WBC 02/16/20 05:15 Total Counted 100 02/16/20 05:15 Neutrophils % (Manual) 93 % (39-76) H 02/16/20 05:15 Band Neutrophils % 1 % (0-10) 02/14/20 05:10 Lymphocytes % (Manual) 6 % (13-43) L 02/16/20 05:15 Monocytes % (Manual) 1 % (4-9) L 02/16/20 05:15 Plt Morphology Comment Normal (NORMAL) 02/16/20 05:15 RBC Morphology Normal (NORMAL) 02/16/20 05:15 D-Dimer 2.90 ug/ml (0.0-0.57) H* 02/10/20 16:01 Sample Site Lrad 02/11/20 05:31 ABG pH 7.510 (7.35-7.45) H 02/11/20 05:31 ABG pCO2 32.0 mmHg (35.0-45.0) L 02/11/20 05:31 ABG pO2 66.0 mmHg (80.0-100.0) L 02/11/20 05:31 ABG HCO3 25.5 mmol/L (22-26) 02/11/20 05:31 ABG O2 Saturation 95.0 % (90-100) 02/11/20 05:31 ABG Base Excess 2.9 mmol/L (-2.0-2.0) H 12/30/20 05:31 Gage Test Pos 02/11/20 05:31 A-a Gradient 94.0 mmHg 02/11/20 05:31 FiO2 28.0 02/11/20 05:31 Blood Gas Comments [place] abg well-mtf 02/11/20 05:31 Sodium 134 mmol/L (136-145) L 02/16/20 05:15 Corrected Sodium TNP 02/16/20 05:15 Potassium 4.2 mmol/L (3.5-5.1) 02/16/20 05:15 Chloride 99 mmol/L (98-107) 02/16/20 05:15 Carbon Dioxide 29.6 mmol/L (21-32) 02/16/20 05:15 BUN 17 mg/dL (7-18) 02/16/20 05:15 Creatinine 0.69 mg/dL (0.55-1.02) 02/16/20 05:15 Est GFR (MDRD) Af Amer > 60 (>60) 02/16/20 05:15 Est GFR (MDRD) Non-Af > 60 (>60) 02/16/20 05:15 Glucose 100 mg/dL (65-99) H 02/16/20 05:15 Lactic Acid 1.6 mmol/L (0.4-2.0) 02/10/20 16:01 Calcium 8.2 mg/dL (8.5-10.1) L 02/16/20 05:15 Corrected Calcium 10.0 mg/dL (8.5-10.1) 02/16/20 05:15 Ferritin 682 ng/mL (8-252) H 02/11/20 04:20 Total Bilirubin 0.40 mg/dL (0.2-1.0) 02/16/20 05:15 AST 56 Units/L (15-37) H 02/16/20 05:15 ALT 62 Units/L (12-78) 02/16/20 05:15 Alkaline Phosphatase 171 Units/L (46-116) H 02/16/20 05:15 Creatine Kinase 52 Units/L (26-192) 02/10/20 16:01 CK-MB (CK-2) < 1.0 ng/mL (0-4.0) 02/10/20 16:01 CK/CKMB % Calc 1.9 % (<4) 02/10/20 16:01 Troponin I < 0.02 ng/mL (0-1.5) 02/10/20 23:00 C-Reactive Protein 65.40 mg/L (0-3.0) H 02/12/20 05:39 Total Protein 5.3 g/dL (6.4-8.2) L 02/16/20 05:15 Albumin 1.8 g/dL (3.4-5.0) L 02/16/20 05:15 Globulin 3.5 g/dL (2.5-4.5) 02/16/20 05:15 Albumin/Globulin Ratio 0.5 Ratio (1.1-2.1) L 02/16/20 05:15 Specimen Type Catherized urine 02/15/20 10:30 Urine Color Yellow (YELLOW) 02/15/20 10:30 Urine Appearance Clear (CLEAR) 02/15/20 10:30 Urine pH 7.0 (5.0 - 8.0) 02/15/20 10:30 Ur Specific [place] 1.010 (1.000-1.030) 02/15/20 10:30 Urine Protein Negative (NEGATIVE) 02/15/20 10:30 Urine Glucose (UA) Negative (NEGATIVE) 02/15/20 10:30 Urine Ketones Negative (NEGATIVE) 02/15/20 10:30 Urine Occult Blood Negative (NEGATIVE) 02/15/20 10:30 Urine Nitrite Negative (NEGATIVE) 02/15/20 10:30 Urine Bilirubin Negative (NEGATIVE) 02/15/20 10:30 Urine Urobilinogen Normal (NORMAL) 02/15/20 10:30 Ur Leukocyte Esterase Negative (NEGATIVE) 02/15/20 10:30 SARS CoV-2 RNA Rapid GREGG Positive (NEGATIVE) A 02/11/20 02:40 Plan (1) Pneumonia due to COVID-19 virus: Status: Acute Plan: Remdesivir, Bronchodilators, Decadron, Levaquin, I/S, supplemental O2 (2) Hypoxia: Status: Acute
[2020-02-16] MEDS: NEURONTIN CAP 300 MG PO SCH (20:16)
[2020-02-16] MEDS: TYLENOL 500 MG TAB EXTRA STRENGTH PO PRN (20:16)
[2020-02-16] MEDS: REMDESIVIR 100 MG in NS 250 ML IV 250 ML IV SCH (22:05)
[2020-02-16] MEDS: LEVAQUIN PREMIX IV 750 MG 750 MG/150 ML BAG IV SCH (22:30)
[2020-02-17] MEDS: NS 1000 ML 1,000 ML IV SCH ×2 (00:09→23:58)
[2020-02-17] MEDS: ASCORBIC ACID INJ MULTI-DOSE VIAL 1,500 MG in NS 50 ML IV 50 ML IV SCH ×5 (02:58→20:30)
[2020-02-17 06:00] LABS: BASOPHILS % (AUTO) 0.1 % (0.2-1.0); HEMATOCRIT 38.1 % (36.0-47.0); HEMOGLOBIN 12.4 g/dL (12.0-16.0); LYMPHOCYTES # (AUTO) 0.3 X10^3/uL (1.3-2.9); LYMPHOCYTES % (AUTO) 2.1 % (21.0-51.0); MEAN CORPUSCULAR HEMOGLOBIN 29.4 pg (27.0-34.0); MEAN CORPUSCULAR HGB CONC 32.7 g/dL (33.0-35.0); MEAN CORPUSCULAR VOLUME 89.9 fL (80.0-100.0); MEAN PLATELET VOLUME 8.8 fL (7.4-11.0); MONOCYTES # (AUTO) 0.3 x10^3/uL (0.3-0.8); MONOCYTES % (AUTO) 2.5 % (0.0-13.0); NEUTROPHILS # (AUTO) 11.8 x10^3/uL (2.2-4.8); NEUTROPHILS % (AUTO) 95.3 % (42.0-75.0); PLATELET COUNT 245 X10^3/uL (150.0-450.0); RED BLOOD COUNT 4.23 X10^6/uL (3.5-5.4); RED CELL DISTRIBUTION WIDTH 13.8 % (11.6-16.5); WHITE BLOOD COUNT 12.4 X10^3/uL (3.6-10.0)
[2020-02-17 06:23] LABS: ALANINE AMINOTRANSFERASE 63 Units/L (12-78); ALBUMIN 1.8 g/dL (3.4-5.0); ALKALINE PHOSPHATASE 202 Units/L (46-116); ASPARTATE AMINO TRANSFERASE 61 Units/L (15-37); BLOOD UREA NITROGEN 19 mg/dL (7-18); CALCIUM 8.4 mg/dL (8.5-10.1); CHLORIDE 99 mmol/L (98-107); COR CA(FOR HYPOALB) 10.2 mg/dL (8.5-10.1); COR NA(FOR HYPERGLY) 137 mmol/L (136-145); CREATININE 0.69 mg/dL (0.55-1.02); SODIUM 137 mmol/L (136-145); TOTAL PROTEIN 5.9 g/dL (6.4-8.2); eGFR NON BLACK RACES > 60 (>60)
[2020-02-17 06:50] LABS: PLATELET MORPHOLOGY COMMENT NORMAL (NORMAL)
[2020-02-17] MEDS: DUONEB 0.5 MG/3 MG (3 mL) NEB SCH ×3 (09:00→22:13)
[2020-02-17] MEDS: VITAMIN A PO SCH (09:45)
[2020-02-17] MEDS: LOVENOX INJ 30 MG SYR SC SCH ×2 (09:45→20:30)
[2020-02-17] MEDS: LIPITOR TAB 40 MG PO SCH (09:45)
[2020-02-17] MEDS: PROTONIX TAB 40 MG PO SCH ×2 (09:45→20:30)
[2020-02-17] MEDS: SYNTHROID 50 mcg TAB PO SCH (09:45)
[2020-02-17] MEDS: VSL#3 PO SCH (09:45)
[2020-02-17] MEDS: ROBITUSSIN DM PO SCH ×4 (09:45→20:30)
[2020-02-17] MEDS: ZINC SULFATE PO SCH ×2 (09:45→20:30)
[2020-02-17] MEDS: DECADRON TAB PO SCH (09:45)
[2020-02-17] MEDS: PEPCID TAB 20 MG PO SCH ×2 (09:45→20:00)
[2020-02-17] MEDS: VITAMIN D3 125 mcg (5,000 UNITS) PO SCH (09:45)
[2020-02-17] MEDS: TRICOR TAB 160 MG PO SCH (09:45)
[2020-02-17] MEDS: TYLENOL 500 MG TAB EXTRA STRENGTH PO PRN ×2 (13:47→20:30)
[2020-02-17] MEDS: NEURONTIN CAP 300 MG PO SCH (20:00)
[2020-02-17] MEDS ORDERED: REMDESIVIR IV ONE (20:31)
[2020-02-17] MEDS: LEVAQUIN PREMIX IV 750 MG 750 MG/150 ML BAG IV SCH ×2 (21:02→22:00)
[2020-02-17] MEDS: REMDESIVIR 100 MG in NS 250 ML IV 250 ML IV SCH (21:02)
--- NOTE | 2020-02-17 21:04 | PCM.PROG ---
Progress Note Progress Note for Day of Date of Exam: 02/17/20 Subjective Subjective: Pt is a 74 year old female past medical history Hypothyroidism, admitted for COVID-19 pneumonia (positive on 02/10). This morning she reports feeling about the same as yesterday with her energy, strength, and breathing. No acute events overnight. Labs/imaging: Wbc 12.4, Hgb 12.4, Plt 245, Na 137, K 4.6, Cr 0.69, Glucose 111. Her hospital/treatment course includes: Remdesivir, Decadron, Bronchodilators, Antibiotics: Levaquin, IVF@KVO, immune supporting supplements, supplemental O2, I/S, Respiratory therapy consult, Pneumonia protocol. Pt is currently requiring heated high flow oxygen with FiO2 of 65%, down from 68%. Continue to wean as tolerated, otherwise continue current treatment plan. Will continue to monitor and follow up labs/imaging in the morning. Past Medical Family Social History Past Med/Fam/Surg Hx: No changes since H&P Allergies: Allergies bacitracin [From Neosporin ([id number])] Allergy (Verified 02/10/20 17:21) cephalexin [From Keflex] Allergy (Verified 02/10/20 17:21) neomycin [From Neosporin ([id number])] Allergy (Verified 02/10/20 17:21) ofloxacin [From Floxin] Allergy (Verified 02/10/20 17:21) polymyxin B [From Neosporin ([id number])] Allergy (Verified 02/10/20 17:21) Review of Systems ROS: No change since H&P Vital Signs and I&O's Vital Signs: Temperature 98.5 F Pulse Rate [Right Radial] 97 Pulse Rate 82 Respiratory Rate 22 Blood Pressure [Left Arm] 112/59 Blood Pressure 164/77 O2 Sat by Pulse Oximetry 90 Intake and Output: Intake & Output 02/14/20 02/15/20 02/16/20 02/17/20 23:59 23:59 23:59 23:59 Intake Total 2930 / 2930 2427 / 2427 1481 / 1481 2314 / 2314 Output Total 2475 / 2475 2925 / 2925 2049 Balance 2930 / 2930 -48 / -48 -1444 / -1444 264 / 264 Physical Exam Oriented: Normal Eyes: Normal Ear: Normal Nose: Normal Throat: Normal Respiratory: Diminished Cardiovascular: Normal : Normal Auscultation: Bowel Sounds: Normal Tenderness: Normal Skin: Normal Musculoskeletal: Normal Psychiatric: Normal Mood Description: Calm and Appropriate Affect: Normal Speech Pattern: Clear and Appropriate Laboratory and Diagnostics Result Diagrams: 02/18/20 04:04 02/18/20 04:04 Labs: 02/10/20 16:05 Blood Blood Culture - Final 02/10/20 16:01 Blood Blood Culture - Final Laboratory WBC 12.4 X10^3/uL (3.6-10.0) H 02/17/20 04:15 RBC 4.23 X10^6/uL (3.5-5.4) 02/17/20 04:15 Hgb 12.4 g/dL (12.0-16.0) 02/17/20 04:15 Hct 38.1 % (36.0-47.0) 02/17/20 04:15 MCV 89.9 fL (80.0-100.0) 02/17/20 04:15 MCH 29.4 pg (27.0-34.0) 02/17/20 04:15 MCHC 32.7 g/dL (33.0-35.0) L 02/17/20 04:15 RDW 13.8 % (11.6-16.5) 02/17/20 04:15 Plt Count 245 X10^3/uL (150.0-450.0) 02/17/20 04:15 Plt Count Comment Adequate (ADEQUATE) 02/17/20 04:15 MPV 8.8 fL (7.4-11.0) 02/17/20 04:15 Neut % (Auto) 95.3 % (42.0-75.0) H 02/17/20 04:15 Lymph % (Auto) 2.1 % (21.0-51.0) L 02/17/20 04:15 [place] % (Auto) 2.5 % (0.0-13.0) 02/17/20 04:15 Eos % (Auto) 0.0 % (0.9-2.9) L 02/17/20 04:15 Baso % (Auto) 0.1 % (0.2-1.0) L 02/17/20 04:15 Neut # (Auto) 11.8 x10^3/uL (2.2-4.8) H 02/17/20 04:15 Lymph # (Auto) 0.3 X10^3/uL (1.3-2.9) L 02/17/20 04:15 [place] # (Auto) 0.3 x10^3/uL (0.3-0.8) 02/17/20 04:15 Eos # (Auto) 0.0 x10^3/uL (0.0-0.2) 02/17/20 04:15 Baso # (Auto) 0.0 X10^3/uL (0.0-0.1) 02/17/20 04:15 Absolute Nucleated RBC 0.0 /100WBC 02/17/20 04:15 Total Counted 100 02/17/20 04:15 Neutrophils % (Manual) 95 % (39-76) H 02/17/20 04:15 Band Neutrophils % 1 % (0-10) 02/14/20 05:10 Lymphocytes % (Manual) 2 % (13-43) L 02/17/20 04:15 Monocytes % (Manual) 3 % (4-9) L 02/17/20 04:15 Plt Morphology Comment Normal (NORMAL) 02/17/20 04:15 RBC Morphology Normal (NORMAL) 02/17/20 04:15 D-Dimer 2.90 ug/ml (0.0-0.57) H* 02/10/20 16:01 Sample Site Lrad 02/11/20 05:31 ABG pH 7.510 (7.35-7.45) H 02/11/20 05:31 ABG pCO2 32.0 mmHg (35.0-45.0) L 02/11/20 05:31 ABG pO2 66.0 mmHg (80.0-100.0) L 02/11/20 05:31 ABG HCO3 25.5 mmol/L (22-26) 02/11/20 05:31 ABG O2 Saturation 95.0 % (90-100) 02/11/20 05:31 ABG Base Excess 2.9 mmol/L (-2.0-2.0) H 02/11/20 05:31 Gage Test Pos 02/11/20 05:31 A-a Gradient 94.0 mmHg 02/11/20 05:31 FiO2 28.0 02/11/20 05:31 Blood Gas Comments [place] abg well-mtf 02/11/20 05:31 Sodium 137 mmol/L (136-145) 02/17/20 04:15 Corrected Sodium 137 mmol/L (136-145) 02/17/20 04:15 Potassium 4.6 mmol/L (3.5-5.1) 02/17/20 04:15 Chloride 99 mmol/L (98-107) 02/17/20 04:15 Carbon Dioxide 30.0 mmol/L (21-32) 02/17/20 04:15 BUN 19 mg/dL (7-18) H 02/17/20 04:15 Creatinine 0.69 mg/dL (0.55-1.02) 02/17/20 04:15 Est GFR (MDRD) Af Amer > 60 (>60) 02/17/20 04:15 Est GFR (MDRD) Non-Af > 60 (>60) 02/17/20 04:15 Glucose 111 mg/dL (65-99) H 02/17/20 04:15 Lactic Acid 1.6 mmol/L (0.4-2.0) 02/10/20 16:01 Calcium 8.4 mg/dL (8.5-10.1) L 02/17/20 04:15 Corrected Calcium 10.2 mg/dL (8.5-10.1) H 02/17/20 04:15 Ferritin 682 ng/mL (8-252) H 02/11/20 04:20 Total Bilirubin 0.40 mg/dL (0.2-1.0) 02/17/20 04:15 AST 61 Units/L (15-37) H 02/17/20 04:15 ALT 63 Units/L (12-78) 02/17/20 04:15 Alkaline Phosphatase 202 Units/L (46-116) H 02/17/20 04:15 Creatine Kinase 52 Units/L (26-192) 02/10/20 16:01 CK-MB (CK-2) < 1.0 ng/mL (0-4.0) 02/10/20 16:01 CK/CKMB % Calc 1.9 % (<4) 02/10/20 16:01 Troponin I < 0.02 ng/mL (0-1.5) 02/10/20 23:00 C-Reactive Protein 65.40 mg/L (0-3.0) H 02/12/20 05:39 Total Protein 5.9 g/dL (6.4-8.2) L 02/17/20 04:15 Albumin 1.8 g/dL (3.4-5.0) L 02/17/20 04:15 Globulin 4.1 g/dL (2.5-4.5) 02/17/20 04:15 Albumin/Globulin Ratio 0.4 Ratio (1.1-2.1) L 02/17/20 04:15 Specimen Type Catherized urine 02/15/20 10:30 Urine Color Yellow (YELLOW) 02/15/20 10:30 Urine Appearance Clear (CLEAR) 02/15/20 10:30 Urine pH 7.0 (5.0 - 8.0) 02/15/20 10:30 Ur Specific [place] 1.010 (1.000-1.030) 02/15/20 10:30 Urine Protein Negative (NEGATIVE) 02/15/20 10:30 Urine Glucose (UA) Negative (NEGATIVE) 02/15/20 10:30 Urine Ketones Negative (NEGATIVE) 02/15/20 10:30 Urine Occult Blood Negative (NEGATIVE) 02/15/20 10:30 Urine Nitrite Negative (NEGATIVE) 02/15/20 10:30 Urine Bilirubin Negative (NEGATIVE) 02/15/20 10:30 Urine Urobilinogen Normal (NORMAL) 02/15/20 10:30 Ur Leukocyte Esterase Negative (NEGATIVE) 02/15/20 10:30 SARS CoV-2 RNA Rapid GREGG Positive (NEGATIVE) A 02/11/20 02:40 Plan (1) Pneumonia due to COVID-19 virus: Status: Acute Plan: Remdesivir, Bronchodilators, Decadron, Levaquin, I/S, supplemental O2 (2) Hypoxia: Status: Acute
[2020-02-18] MEDS: ASCORBIC ACID INJ MULTI-DOSE VIAL 1,500 MG in NS 50 ML IV 50 ML IV SCH ×4 (04:00→21:40)
[2020-02-18] MEDS: TYLENOL 500 MG TAB EXTRA STRENGTH PO PRN ×3 (04:38→21:45)
[2020-02-18 05:48] LABS: ALANINE AMINOTRANSFERASE 71 Units/L (12-78); ALBUMIN 1.7 g/dL (3.4-5.0); ALKALINE PHOSPHATASE 244 Units/L (46-116); ASPARTATE AMINO TRANSFERASE 74 Units/L (15-37); BLOOD UREA NITROGEN 20 mg/dL (7-18); CALCIUM 8.1 mg/dL (8.5-10.1); CARBON DIOXIDE 27.4 mmol/L (21-32); CHLORIDE 99 mmol/L (98-107); COR CA(FOR HYPOALB) 9.9 mg/dL (8.5-10.1); COR NA(FOR HYPERGLY) 135 mmol/L (136-145); CREATININE 0.69 mg/dL (0.55-1.02); SODIUM 134 mmol/L (136-145); TOTAL PROTEIN 5.7 g/dL (6.4-8.2); eGFR NON BLACK RACES > 60 (>60)
[2020-02-18 05:52] LABS: BASOPHILS % (AUTO) 0.1 % (0.2-1.0); EOSINOPHILS % (AUTO) 0.1 % (0.9-2.9); HEMATOCRIT 36.6 % (36.0-47.0); HEMOGLOBIN 12.3 g/dL (12.0-16.0); LYMPHOCYTES # (AUTO) 0.3 X10^3/uL (1.3-2.9); LYMPHOCYTES % (AUTO) 2.1 % (21.0-51.0); MEAN CORPUSCULAR HEMOGLOBIN 30.1 pg (27.0-34.0); MEAN CORPUSCULAR HGB CONC 33.6 g/dL (33.0-35.0); MEAN CORPUSCULAR VOLUME 89.5 fL (80.0-100.0); MEAN PLATELET VOLUME 8.8 fL (7.4-11.0); MONOCYTES # (AUTO) 0.2 x10^3/uL (0.3-0.8); MONOCYTES % (AUTO) 1.2 % (0.0-13.0); NEUTROPHILS # (AUTO) 13.8 x10^3/uL (2.2-4.8); NEUTROPHILS % (AUTO) 96.5 % (42.0-75.0); PLATELET COUNT 228 X10^3/uL (150.0-450.0); RED BLOOD COUNT 4.09 X10^6/uL (3.5-5.4); RED CELL DISTRIBUTION WIDTH 13.9 % (11.6-16.5); WHITE BLOOD COUNT 14.2 X10^3/uL (3.6-10.0)
[2020-02-18 06:26] LABS: PLATELET MORPHOLOGY COMMENT NORMAL (NORMAL)
[2020-02-18] MEDS: DUONEB 0.5 MG/3 MG (3 mL) NEB SCH ×4 (09:40→20:55)
--- NOTE | 2020-02-18 09:47 | RAD ---
HISTORYPNEUMONIA, COVID +[facility] x-ray, 1 VIEWCOMPARISONX-ray 02/16/2020FINDINGSBilateral pneumonia is similar to prior study. Heart is normal in size. Small left pleural effusion may be present. No pneumothorax is seen.IMPRESSIONBilateral pneumonia appears similar to prior study.Electronically signed by: Kev Narvaez (Feb 18, 2020 09:45:59)
[2020-02-18] MEDS: ZINC SULFATE PO SCH ×2 (10:05→21:57)
[2020-02-18] MEDS: VSL#3 PO SCH (10:05)
[2020-02-18] MEDS: VITAMIN D3 125 mcg (5,000 UNITS) PO SCH (10:12)
[2020-02-18] MEDS: VITAMIN A PO SCH (10:13)
[2020-02-18] MEDS: TRICOR TAB 160 MG PO SCH (10:13)
[2020-02-18] MEDS: SYNTHROID 50 mcg TAB PO SCH (10:14)
[2020-02-18] MEDS: ROBITUSSIN DM PO SCH ×4 (10:14→21:57)
[2020-02-18] MEDS: MILK OF MAGNESIA PO SCH (10:14)
[2020-02-18] MEDS: PROTONIX TAB 40 MG PO SCH ×2 (10:14→21:57)
[2020-02-18] MEDS: DECADRON TAB PO SCH (10:15)
[2020-02-18] MEDS: PEPCID TAB 20 MG PO SCH ×2 (10:15→21:57)
[2020-02-18] MEDS: LOVENOX INJ 30 MG SYR SC SCH ×2 (10:17→21:45)
[2020-02-18] MEDS: IVERMECTIN PO SCH ×2 (10:19→14:10)
--- NOTE | 2020-02-18 12:52 | PCM.PROG ---
Progress Note Progress Note for Day of Date of Exam: 02/18/20 Subjective Subjective: Pt is a 74 year old female past medical history Hypothyroidism, admitted for COVID-19 pneumonia (positive on 02/10). This morning she states having some improvement, sat up in bed for a few minutes which was as much as she could tolerate. Labs/imaging: Wbc 14.2, Hgb 12.3, Plt 228, Na 135, K 4, Cr 0.69, Glucose 133. CXR: Bilateral pneumonia is similar to prior study. Heart is normal in size. Small left pleural effusion may be present. No pneumothorax is seen. Her hospital/treatment course includes: Remdesivir(completed course), Decadron, Bronchodilators, Antibiotics: Levaquin(completed course), IVF@KVO, immune supporting supplements, supplemental O2, I/S, Respiratory therapy consult, Pneumonia protocol. Pt was on heated high flow oxygen with FiO2 of 65% yesterday but overnight had to be increased to 74% to maintain oxygen greater than 90%. Change decadron to solumedrol. Will continue to wean as tolerated, otherwise continue current treatment plan. Continue to monitor and follow up labs/imaging in the morning. Past Medical Family Social History Past Med/Fam/Surg Hx: No changes since H&P Allergies: Allergies bacitracin [From Neosporin ([id number])] Allergy (Verified 02/10/20 17:21) cephalexin [From Keflex] Allergy (Verified 02/10/20 17:21) neomycin [From Neosporin ([id number])] Allergy (Verified 02/10/20 17:21) ofloxacin [From Floxin] Allergy (Verified 02/10/20 17:21) polymyxin B [From Neosporin ([id number])] Allergy (Verified 02/10/20 17:21) Review of Systems ROS: No change since H&P Vital Signs and I&O's Vital Signs: Temperature 97.8 F Pulse Rate [Right Radial] 72 Pulse Rate 77 Respiratory Rate 26 Blood Pressure [Left Arm] 117/67 Blood Pressure 164/77 O2 Sat by Pulse Oximetry 89 Intake and Output: Intake & Output 02/15/20 02/16/20 02/17/20 02/18/20 23:59 23:59 23:59 23:59 Intake Total 2427 / 2427 1481 / 1481 2926 / 7017 1130 / 1130 Output Total 2475 / 2475 2925 / 2925 2600 / 2800 900 / 900 Balance -48 / -48 -1444 / -1444 326 / 597 230 / 230 Physical Exam Oriented: Normal Eyes: Normal Ear: Normal Nose: Normal Throat: Normal Respiratory: Diminished Cardiovascular: Normal : Normal Auscultation: Bowel Sounds: Normal Tenderness: Normal Skin: Normal Musculoskeletal: Normal Psychiatric: Normal Mood Description: Calm and Appropriate Affect: Normal Speech Pattern: Clear and Appropriate Laboratory and Diagnostics Result Diagrams: 02/18/20 04:04 02/18/20 04:04 Labs: 02/10/20 16:05 Blood Blood Culture - Final 02/10/20 16:01 Blood Blood Culture - Final Laboratory WBC 14.2 X10^3/uL (3.6-10.0) H 02/18/20 04:04 RBC 4.09 X10^6/uL (3.5-5.4) 02/18/20 04:04 Hgb 12.3 g/dL (12.0-16.0) 02/18/20 04:04 Hct 36.6 % (36.0-47.0) 02/18/20 04:04 MCV 89.5 fL (80.0-100.0) 02/18/20 04:04 MCH 30.1 pg (27.0-34.0) 02/18/20 04:04 MCHC 33.6 g/dL (33.0-35.0) 02/18/20 04:04 RDW 13.9 % (11.6-16.5) 02/18/20 04:04 Plt Count 228 X10^3/uL (150.0-450.0) 02/18/20 04:04 Plt Count Comment Adequate (ADEQUATE) 02/18/20 04:04 MPV 8.8 fL (7.4-11.0) 02/18/20 04:04 Neut % (Auto) 96.5 % (42.0-75.0) H 02/18/20 04:04 Lymph % (Auto) 2.1 % (21.0-51.0) L 02/18/20 04:04 [place] % (Auto) 1.2 % (0.0-13.0) 02/18/20 04:04 Eos % (Auto) 0.1 % (0.9-2.9) L 02/18/20 04:04 Baso % (Auto) 0.1 % (0.2-1.0) L 02/18/20 04:04 Neut # (Auto) 13.8 x10^3/uL (2.2-4.8) H 02/18/20 04:04 Lymph # (Auto) 0.3 X10^3/uL (1.3-2.9) L 02/18/20 04:04 [place] # (Auto) 0.2 x10^3/uL (0.3-0.8) L 02/18/20 04:04 Eos # (Auto) 0.0 x10^3/uL (0.0-0.2) 02/18/20 04:04 Baso # (Auto) 0.0 X10^3/uL (0.0-0.1) 02/18/20 04:04 Absolute Nucleated RBC 0.0 /100WBC 02/18/20 04:04 Total Counted 100 02/18/20 04:04 Neutrophils % (Manual) 97 % (39-76) H 02/18/20 04:04 Band Neutrophils % 1 % (0-10) 02/14/20 05:10 Lymphocytes % (Manual) 2 % (13-43) L 02/18/20 04:04 Monocytes % (Manual) 1 % (4-9) L 02/18/20 04:04 Plt Morphology Comment Normal (NORMAL) 02/18/20 04:04 RBC Morphology Normal (NORMAL) 02/18/20 04:04 D-Dimer 2.90 ug/ml (0.0-0.57) H* 02/10/20 16:01 Sample Site Lrad 02/11/20 05:31 ABG pH 7.510 (7.35-7.45) H 02/11/20 05:31 ABG pCO2 32.0 mmHg (35.0-45.0) L 02/11/20 05:31 ABG pO2 66.0 mmHg (80.0-100.0) L 02/11/20 05:31 ABG HCO3 25.5 mmol/L (22-26) 02/11/20 05:31 ABG O2 Saturation 95.0 % (90-100) 02/11/20 05:31 ABG Base Excess 2.9 mmol/L (-2.0-2.0) H 02/11/20 05:31 Gage Test Pos 02/11/20 05:31 A-a Gradient 94.0 mmHg 02/11/20 05:31 FiO2 28.0 02/11/20 05:31 Blood Gas Comments [place] abg well-mtf 02/11/20 05:31 Sodium 134 mmol/L (136-145) L 02/18/20 04:04 Corrected Sodium 135 mmol/L (136-145) L 02/18/20 04:04 Potassium 4.0 mmol/L (3.5-5.1) 02/18/20 04:04 Chloride 99 mmol/L (98-107) 02/18/20 04:04 Carbon Dioxide 27.4 mmol/L (21-32) 02/18/20 04:04 BUN 20 mg/dL (7-18) H 02/18/20 04:04 Creatinine 0.69 mg/dL (0.55-1.02) 02/18/20 04:04 Est GFR (MDRD) Af Amer > 60 (>60) 02/18/20 04:04 Est GFR (MDRD) Non-Af > 60 (>60) 02/18/20 04:04 Glucose 133 mg/dL (65-99) H 02/18/20 04:04 Lactic Acid 1.6 mmol/L (0.4-2.0) 02/10/20 16:01 Calcium 8.1 mg/dL (8.5-10.1) L 02/18/20 04:04 Corrected Calcium 9.9 mg/dL (8.5-10.1) 02/18/20 04:04 Ferritin 682 ng/mL (8-252) H 02/11/20 04:20 Total Bilirubin 0.40 mg/dL (0.2-1.0) 02/18/20 04:04 AST 74 Units/L (15-37) H 02/18/20 04:04 ALT 71 Units/L (12-78) 02/18/20 04:04 Alkaline Phosphatase 244 Units/L (46-116) H 02/18/20 04:04 Creatine Kinase 52 Units/L (26-192) 02/10/20 16:01 CK-MB (CK-2) < 1.0 ng/mL (0-4.0) 02/10/20 16:01 CK/CKMB % Calc 1.9 % (<4) 02/10/20 16:01 Troponin I < 0.02 ng/mL (0-1.5) 02/10/20 23:00 C-Reactive Protein 65.40 mg/L (0-3.0) H 02/12/20 05:39 Total Protein 5.7 g/dL (6.4-8.2) L 02/18/20 04:04 Albumin 1.7 g/dL (3.4-5.0) L 02/18/20 04:04 Globulin 4.0 g/dL (2.5-4.5) 02/18/20 04:04 Albumin/Globulin Ratio 0.4 Ratio (1.1-2.1) L 02/18/20 04:04 Specimen Type Catherized urine 02/15/20 10:30 Urine Color Yellow (YELLOW) 02/15/20 10:30 Urine Appearance Clear (CLEAR) 02/15/20 10:30 Urine pH 7.0 (5.0 - 8.0) 02/15/20 10:30 Ur Specific [place] 1.010 (1.000-1.030) 02/15/20 10:30 Urine Protein Negative (NEGATIVE) 02/15/20 10:30 Urine Glucose (UA) Negative (NEGATIVE) 02/15/20 10:30 Urine Ketones Negative (NEGATIVE) 02/15/20 10:30 Urine Occult Blood Negative (NEGATIVE) 02/15/20 10:30 Urine Nitrite Negative (NEGATIVE) 02/15/20 10:30 Urine Bilirubin Negative (NEGATIVE) 02/15/20 10:30 Urine Urobilinogen Normal (NORMAL) 02/15/20 10:30 Ur Leukocyte Esterase Negative (NEGATIVE) 02/15/20 10:30 SARS CoV-2 RNA Rapid GREGG Positive (NEGATIVE) A 02/11/20 02:40 Plan (1) Pneumonia due to COVID-19 virus: Status: Acute Plan: Remdesivir, Bronchodilators, Decadron, Levaquin, I/S, supplemental O2 (2) Hypoxia: Status: Acute
[2020-02-18] MEDS: SOLU-Medrol 40 MG VIAL IVP SCH ×2 (14:13→21:56)
[2020-02-18] MEDS: LIPITOR TAB 40 MG PO SCH (14:15)
[2020-02-18] MEDS: NS 1000 ML 1,000 ML IV SCH (21:40)
[2020-02-18] MEDS: NEURONTIN CAP 300 MG PO SCH (21:57)
[2020-02-18] MEDS: COLACE CAP 100 MG PO SCH (21:57)
[2020-02-18] MEDS: REMDESIVIR 100 MG in NS 250 ML IV 250 ML IV SCH (23:05)
[2020-02-19] MEDS: LEVAQUIN PREMIX IV 750 MG 750 MG/150 ML BAG IV SCH ×2 (00:36→22:15)
[2020-02-19] MEDS: ASCORBIC ACID INJ MULTI-DOSE VIAL 1,500 MG in NS 50 ML IV 50 ML IV SCH ×4 (02:40→21:15)
[2020-02-19 05:43] LABS: ABG BASE EXCESS 5.5 mmol/L (-2.0-2.0); ABG HCO3 28.7 mmol/L (22-26)
[2020-02-19 05:45] LABS: ABG ALLEN TEST POS
[2020-02-19] MEDS: SOLU-Medrol 40 MG VIAL IVP SCH ×3 (06:00→21:15)
[2020-02-19 06:06] LABS: BASOPHILS % (AUTO) 0.3 % (0.2-1.0); HEMATOCRIT 35.4 % (36.0-47.0); HEMOGLOBIN 11.8 g/dL (12.0-16.0); LYMPHOCYTES # (AUTO) 0.2 X10^3/uL (1.3-2.9); LYMPHOCYTES % (AUTO) 1.6 % (21.0-51.0); MEAN CORPUSCULAR HEMOGLOBIN 29.7 pg (27.0-34.0); MEAN CORPUSCULAR HGB CONC 33.2 g/dL (33.0-35.0); MEAN CORPUSCULAR VOLUME 89.6 fL (80.0-100.0); MEAN PLATELET VOLUME 8.7 fL (7.4-11.0); MONOCYTES # (AUTO) 0.1 x10^3/uL (0.3-0.8); NEUTROPHILS # (AUTO) 11.5 x10^3/uL (2.2-4.8); NEUTROPHILS % (AUTO) 97.1 % (42.0-75.0); PLATELET COUNT 207 X10^3/uL (150.0-450.0); RED BLOOD COUNT 3.96 X10^6/uL (3.5-5.4); RED CELL DISTRIBUTION WIDTH 13.8 % (11.6-16.5); WHITE BLOOD COUNT 11.9 X10^3/uL (3.6-10.0)
[2020-02-19 06:21] LABS: ALANINE AMINOTRANSFERASE 61 Units/L (12-78); ALBUMIN 1.6 g/dL (3.4-5.0); ALKALINE PHOSPHATASE 287 Units/L (46-116); ASPARTATE AMINO TRANSFERASE 58 Units/L (15-37); BLOOD UREA NITROGEN 17 mg/dL (7-18); CHLORIDE 99 mmol/L (98-107); COR CA(FOR HYPOALB) 9.9 mg/dL (8.5-10.1); COR NA(FOR HYPERGLY) 134 mmol/L (136-145); CREATININE 0.68 mg/dL (0.55-1.02); SODIUM 133 mmol/L (136-145); TOTAL PROTEIN 5.3 g/dL (6.4-8.2); eGFR NON BLACK RACES > 60 (>60)
[2020-02-19 07:28] LABS: PLATELET MORPHOLOGY COMMENT NORMAL (NORMAL)
[2020-02-19] MEDS: VITAMIN D3 125 mcg (5,000 UNITS) PO SCH (08:45)
[2020-02-19] MEDS: VSL#3 PO SCH (08:46)
[2020-02-19] MEDS: LOVENOX INJ 30 MG SYR SC SCH ×2 (08:46→21:15)
[2020-02-19] MEDS: ROBITUSSIN DM PO SCH ×4 (08:47→21:15)
[2020-02-19] MEDS: MILK OF MAGNESIA PO SCH (08:47)
[2020-02-19] MEDS: ZINC SULFATE PO SCH ×2 (08:48→21:15)
[2020-02-19] MEDS: LIPITOR TAB 40 MG PO SCH (08:48)
[2020-02-19] MEDS: TRICOR TAB 160 MG PO SCH (08:50)
[2020-02-19] MEDS: SYNTHROID 50 mcg TAB PO SCH (08:50)
[2020-02-19] MEDS: VITAMIN A PO SCH (08:51)
[2020-02-19] MEDS: PEPCID TAB 20 MG PO SCH ×2 (08:51→21:15)
[2020-02-19] MEDS: PROTONIX TAB 40 MG PO SCH ×2 (08:51→21:15)
[2020-02-19] MEDS: DUONEB 0.5 MG/3 MG (3 mL) NEB SCH ×4 (10:18→21:00)
[2020-02-19] MEDS: TYLENOL 500 MG TAB EXTRA STRENGTH PO PRN (12:43)
--- NOTE | 2020-02-19 14:54 | PCM.PROG ---
Progress Note Progress Note for Day of Date of Exam: 02/19/20 Subjective Subjective: Pt is a 74 year old female past medical history Hypothyroidism, admitted for COVID-19 pneumonia (positive on 02/10). She reports not having much change in her breathing compared to yesterday. Overnight she had to have her oxygen requirement increased. Labs/imaging: Wbc 11.9, Hgb 11.8, Plt 207, Na 133, K 4.1, Cr 0.68, Glucose 124. AB.51/36/46/28/86% on HHF FiO2 92%. Her hospital/treatment course includes: Remdesivir(completed course), Solumedrol 80mg q8h, Bronchodilators, Antibiotics: Levaquin(completed course), IVF@KVO, immune supporting supplements, supplemental O2, I/S, Respiratory therapy consult, Pneumonia protocol. Pt is currently requiring heated high flow oxygen with FiO2 of 92% that was increased from 70% yesterday. Will continue to wean or titrate as needed, otherwise continue current treatment plan. Continue to monitor and follow up labs/imaging in the morning. Past Medical Family Social History Past Med/Fam/Surg Hx: No changes since H&P Allergies: Allergies bacitracin [From Neosporin ([id number])] Allergy (Verified 02/10/20 17:21) cephalexin [From Keflex] Allergy (Verified 02/10/20 17:21) neomycin [From Neosporin ([id number])] Allergy (Verified 02/10/20 17:21) ofloxacin [From Floxin] Allergy (Verified 02/10/20 17:21) polymyxin B [From Neosporin ([id number])] Allergy (Verified 02/10/20 17:21) Review of Systems ROS: No change since H&P Vital Signs and I&O's Vital Signs: Temperature 98.1 F Pulse Rate [Right Radial] 84 Pulse Rate 91 Respiratory Rate 24 Blood Pressure [Left Arm] 108/59 Blood Pressure 164/77 O2 Sat by Pulse Oximetry 87 Intake and Output: Intake & Output 02/16/20 02/17/20 02/18/20 02/19/20 23:59 23:59 23:59 23:59 Intake Total 1481 / 1481 2926 / 3397 4216 / 4216 1170 / 1170 Output Total 2925 / 2925 2600 / 2800 2875 / 2875 1200 / 1200 Balance -1444 / -1444 326 / 597 1341 / 1341 -30 / -30 Physical Exam Oriented: Normal Eyes: Normal Ear: Normal Nose: Normal Throat: Normal Respiratory: Diminished Cardiovascular: Normal : Normal Auscultation: Bowel Sounds: Normal Tenderness: Normal Skin: Normal Musculoskeletal: Normal Psychiatric: Normal Mood Description: Calm and Appropriate Affect: Normal Speech Pattern: Clear and Appropriate Laboratory and Diagnostics Result Diagrams: 02/19/20 04:45 02/19/20 04:45 Labs: 02/10/20 16:05 Blood Blood Culture - Final 02/10/20 16:01 Blood Blood Culture - Final Laboratory WBC 11.9 X10^3/uL (3.6-10.0) H 02/19/20 04:45 RBC 3.96 X10^6/uL (3.5-5.4) 02/19/20 04:45 Hgb 11.8 g/dL (12.0-16.0) L 02/19/20 04:45 Hct 35.4 % (36.0-47.0) L 02/19/20 04:45 MCV 89.6 fL (80.0-100.0) 02/19/20 04:45 MCH 29.7 pg (27.0-34.0) 02/19/20 04:45 MCHC 33.2 g/dL (33.0-35.0) 02/19/20 04:45 RDW 13.8 % (11.6-16.5) 02/19/20 04:45 Plt Count 207 X10^3/uL (150.0-450.0) 02/19/20 04:45 Plt Count Comment Adequate (ADEQUATE) 02/19/20 04:45 MPV 8.7 fL (7.4-11.0) 02/19/20 04:45 Neut % (Auto) 97.1 % (42.0-75.0) H 02/19/20 04:45 Lymph % (Auto) 1.6 % (21.0-51.0) L 02/19/20 04:45 [place] % (Auto) 1.0 % (0.0-13.0) 02/19/20 04:45 Eos % (Auto) 0.0 % (0.9-2.9) L 02/19/20 04:45 Baso % (Auto) 0.3 % (0.2-1.0) 02/19/20 04:45 Neut # (Auto) 11.5 x10^3/uL (2.2-4.8) H 02/19/20 04:45 Lymph # (Auto) 0.2 X10^3/uL (1.3-2.9) L 02/19/20 04:45 [place] # (Auto) 0.1 x10^3/uL (0.3-0.8) L 02/19/20 04:45 Eos # (Auto) 0.0 x10^3/uL (0.0-0.2) 02/19/20 04:45 Baso # (Auto) 0.0 X10^3/uL (0.0-0.1) 02/19/20 04:45 Absolute Nucleated RBC 0.0 /100WBC 02/19/20 04:45 Total Counted 100 02/19/20 04:45 Neutrophils % (Manual) 100 % (39-76) H 02/19/20 04:45 Band Neutrophils % 1 % (0-10) 02/14/20 05:10 Lymphocytes % (Manual) Not Reportable 02/19/20 04:45 Monocytes % (Manual) 1 % (4-9) L 02/18/20 04:04 Plt Morphology Comment Normal (NORMAL) 02/19/20 04:45 RBC Morphology Normal (NORMAL) 02/19/20 04:45 D-Dimer 2.90 ug/ml (0.0-0.57) H* 02/10/20 16:01 Sample Site Lra 02/19/20 05:41 ABG pH 7.510 (7.35-7.45) H 02/19/20 05:41 ABG pCO2 36.0 mmHg (35.0-45.0) 02/19/20 05:41 ABG pO2 46.0 mmHg (80.0-100.0) L* 02/19/20 05:41 ABG HCO3 28.7 mmol/L (22-26) H 02/19/20 05:41 ABG O2 Saturation 86.0 % (90-100) L 02/19/20 05:41 ABG Base Excess 5.5 mmol/L (-2.0-2.0) H 02/19/20 05:41 Gage Test Pos 02/19/20 05:41 A-a Gradient 565.0 mmHg 02/19/20 05:41 FiO2 92.0 02/19/20 05:41 Blood Gas Comments Pt giorgi well eb 02/19/20 05:41 Sodium 133 mmol/L (136-145) L 02/19/20 04:45 Corrected Sodium 134 mmol/L (136-145) L 02/19/20 04:45 Potassium 4.1 mmol/L (3.5-5.1) 02/19/20 04:45 Chloride 99 mmol/L (98-107) 02/19/20 04:45 Carbon Dioxide 27.0 mmol/L (21-32) 02/19/20 04:45 BUN 17 mg/dL (7-18) 02/19/20 04:45 Creatinine 0.68 mg/dL (0.55-1.02) 02/19/20 04:45 Est GFR (MDRD) Af Amer > 60 (>60) 02/19/20 04:45 Est GFR (MDRD) Non-Af > 60 (>60) 02/19/20 04:45 Glucose 124 mg/dL (65-99) H 02/19/20 04:45 Lactic Acid 1.6 mmol/L (0.4-2.0) 02/10/20 16:01 Calcium 8.0 mg/dL (8.5-10.1) L 02/19/20 04:45 Corrected Calcium 9.9 mg/dL (8.5-10.1) 02/19/20 04:45 Ferritin 682 ng/mL (8-252) H 02/11/20 04:20 Total Bilirubin 0.30 mg/dL (0.2-1.0) 02/19/20 04:45 AST 58 Units/L (15-37) H 02/19/20 04:45 ALT 61 Units/L (12-78) 02/19/20 04:45 Alkaline Phosphatase 287 Units/L (46-116) H 02/19/20 04:45 Creatine Kinase 52 Units/L (26-192) 02/10/20 16:01 CK-MB (CK-2) < 1.0 ng/mL (0-4.0) 02/10/20 16:01 CK/CKMB % Calc 1.9 % (<4) 02/10/20 16:01 Troponin I < 0.02 ng/mL (0-1.5) 02/10/20 23:00 C-Reactive Protein 65.40 mg/L (0-3.0) H 02/12/20 05:39 Total Protein 5.3 g/dL (6.4-8.2) L 02/19/20 04:45 Albumin 1.6 g/dL (3.4-5.0) L 02/19/20 04:45 Globulin 3.7 g/dL (2.5-4.5) 02/19/20 04:45 Albumin/Globulin Ratio 0.4 Ratio (1.1-2.1) L 02/19/20 04:45 Specimen Type Catherized urine 02/15/20 10:30 Urine Color Yellow (YELLOW) 02/15/20 10:30 Urine Appearance Clear (CLEAR) 02/15/20 10:30 Urine pH 7.0 (5.0 - 8.0) 02/15/20 10:30 Ur Specific [place] 1.010 (1.000-1.030) 02/15/20 10:30 Urine Protein Negative (NEGATIVE) 02/15/20 10:30 Urine Glucose (UA) Negative (NEGATIVE) 02/15/20 10:30 Urine Ketones Negative (NEGATIVE) 02/15/20 10:30 Urine Occult Blood Negative (NEGATIVE) 02/15/20 10:30 Urine Nitrite Negative (NEGATIVE) 02/15/20 10:30 Urine Bilirubin Negative (NEGATIVE) 02/15/20 10:30 Urine Urobilinogen Normal (NORMAL) 02/15/20 10:30 Ur Leukocyte Esterase Negative (NEGATIVE) 02/15/20 10:30 SARS CoV-2 RNA Rapid GREGG Positive (NEGATIVE) A 02/11/20 02:40 Plan (1) Pneumonia due to COVID-19 virus: Status: Acute Plan: Remdesivir, Bronchodilators, Solumedrol, Levaquin, I/S, supplemental O2 (2) Hypoxia: Status: Acute
[2020-02-19] MEDS: NS 1000 ML 1,000 ML IV SCH (21:10)
[2020-02-19] MEDS: NEURONTIN CAP 300 MG PO SCH (21:15)
[2020-02-19] MEDS: COLACE CAP 100 MG PO SCH (21:15)
[2020-02-20] MEDS: ATIVAN TAB 0.5 MG PO PRN ×2 (00:45→19:00)
[2020-02-20] MEDS: ASCORBIC ACID INJ MULTI-DOSE VIAL 1,500 MG in NS 50 ML IV 50 ML IV SCH ×4 (02:26→23:40)
[2020-02-20] MEDS: SOLU-Medrol 40 MG VIAL IVP SCH (06:10)
[2020-02-20 06:22] LABS: BASOPHILS % (AUTO) 0.3 % (0.2-1.0); EOSINOPHILS % (AUTO) 0.1 % (0.9-2.9); HEMATOCRIT 35.4 % (36.0-47.0); HEMOGLOBIN 11.9 g/dL (12.0-16.0); LYMPHOCYTES # (AUTO) 0.2 X10^3/uL (1.3-2.9); LYMPHOCYTES % (AUTO) 1.5 % (21.0-51.0); MEAN CORPUSCULAR HEMOGLOBIN 29.8 pg (27.0-34.0); MEAN CORPUSCULAR HGB CONC 33.6 g/dL (33.0-35.0); MEAN CORPUSCULAR VOLUME 88.7 fL (80.0-100.0); MEAN PLATELET VOLUME 8.9 fL (7.4-11.0); MONOCYTES # (AUTO) 0.3 x10^3/uL (0.3-0.8); MONOCYTES % (AUTO) 2.2 % (0.0-13.0); NEUTROPHILS # (AUTO) 12.9 x10^3/uL (2.2-4.8); NEUTROPHILS % (AUTO) 95.9 % (42.0-75.0); PLATELET COUNT 201 X10^3/uL (150.0-450.0); RED BLOOD COUNT 3.99 X10^6/uL (3.5-5.4); RED CELL DISTRIBUTION WIDTH 13.8 % (11.6-16.5); WHITE BLOOD COUNT 13.4 X10^3/uL (3.6-10.0)
[2020-02-20 06:32] LABS: ALANINE AMINOTRANSFERASE 39 Units/L (12-78); ALBUMIN 1.6 g/dL (3.4-5.0); ALKALINE PHOSPHATASE 326 Units/L (46-116); ASPARTATE AMINO TRANSFERASE 48 Units/L (15-37); BLOOD UREA NITROGEN 20 mg/dL (7-18); CALCIUM 7.9 mg/dL (8.5-10.1); CARBON DIOXIDE 28.6 mmol/L (21-32); CHLORIDE 99 mmol/L (98-107); COR CA(FOR HYPOALB) 9.8 mg/dL (8.5-10.1); COR NA(FOR HYPERGLY) 133 mmol/L (136-145); CREATININE 0.68 mg/dL (0.55-1.02); SODIUM 132 mmol/L (136-145); TOTAL PROTEIN 5.2 g/dL (6.4-8.2); eGFR NON BLACK RACES > 60 (>60)
[2020-02-20 07:34] LABS: ABG BASE EXCESS 8.5 mmol/L (-2.0-2.0)
[2020-02-20 07:35] LABS: ABG ALLEN TEST POS; ABG HCO3 31.8 mmol/L (22-26)
[2020-02-20] MEDS: DUONEB 0.5 MG/3 MG (3 mL) NEB SCH ×4 (08:00→20:15)
[2020-02-20 08:02] LABS: PLATELET MORPHOLOGY COMMENT NORMAL (NORMAL)
[2020-02-20] MEDS: LOVENOX INJ 30 MG SYR SC SCH ×2 (08:11→23:40)
[2020-02-20] MEDS: MILK OF MAGNESIA PO SCH (08:29)
[2020-02-20] MEDS: ROBITUSSIN DM PO SCH ×4 (08:30→23:40)
[2020-02-20] MEDS: ZINC SULFATE PO SCH ×2 (08:32→23:40)
[2020-02-20] MEDS: PEPCID TAB 20 MG PO SCH ×2 (08:32→23:40)
[2020-02-20] MEDS: LIPITOR TAB 40 MG PO SCH (08:32)
[2020-02-20] MEDS: PROTONIX TAB 40 MG PO SCH ×2 (08:36→23:40)
[2020-02-20] MEDS: SYNTHROID 50 mcg TAB PO SCH (08:36)
[2020-02-20] MEDS: TRICOR TAB 160 MG PO SCH (08:36)
[2020-02-20] MEDS: VSL#3 PO SCH (08:37)
[2020-02-20] MEDS: VITAMIN D3 125 mcg (5,000 UNITS) PO SCH (08:37)
[2020-02-20] MEDS: VITAMIN A PO SCH (08:37)
--- NOTE | 2020-02-20 09:35 | RAD ---
HISTORYCOVIDSTUDYCHEST, 1 [id number] bilateral areas of opacity are compatible with bronchopneumonia. Probably not changed compared to 2 days ago when accounting for differences in technique.No pleural effusion or pneumothorax.Heart size is normal.Bones are unremarkable.EKG leads are noted.IMPRESSION1. Unchanged bronchopneumoniaElectronically signed by: Toy Donnelly (Feb 20, 2020 09:33:37)
--- NOTE | 2020-02-20 10:55 | PCM.PROG ---
Progress Note Progress Note for Day of Date of Exam: 02/20/20 Subjective Subjective: Pt is a 74 year old female past medical history Multiple Sclerosis, Hypothyroidism, admitted for COVID-19 pneumonia (positive on 02/10). Overnight, patient's respiratory status deteriorated and she had to be placed on BiPAP support. This morning she continue to be on BiPAP. She is alert and oriented. She does report feeling a little better with her breathing due to the pressure support. Labs/imaging: Wbc 13.4, Hgb 11.9, Plt 201, Na 132, K 4.3, Cr 0.68, Glucose 123. AB.53/38/69/31/95% on BiPAP FiO2 70%. Her hospital/treatment course includes: Remdesivir(completed course), Solumedrol 80mg q8h, Bronchodilators, Antibiotics: Levaquin(completed course), IVF@KVO, immune supporting supplements, supplemental O2, I/S, Respiratory therapy consult, Pneumonia protocol. Pt is currently on BiPAP support with FiO2 92% with good oxygenation. Will continue to titrate or wean as necessary. Increase solumedrol to 125mg q8h. Otherwise continue current treatment plan. Will monitor closely and follow up labs/imaging in the morning. Critical care time spent 30-74 minutes in clinical assessment, reviewing labs/imaging, decision making, and documentation. Past Medical Family Social History Past Med/Fam/Surg Hx: No changes since H&P Allergies: Allergies bacitracin [From Neosporin ([id number])] Allergy (Verified 02/10/20 17:21) cephalexin [From Keflex] Allergy (Verified 02/10/20 17:21) neomycin [From Neosporin ([id number])] Allergy (Verified 02/10/20 17:21) ofloxacin [From Floxin] Allergy (Verified 02/10/20 17:21) polymyxin B [From Neosporin ([id number])] Allergy (Verified 02/10/20 17:21) Review of Systems ROS: No change since H&P Vital Signs and I&O's Vital Signs: Temperature 97.4 F Pulse Rate [Right Radial] 84 Pulse Rate 98 Respiratory Rate 24 Blood Pressure [Left Arm] 137/88 Blood Pressure 164/77 O2 Sat by Pulse Oximetry 96 Intake and Output: Intake & Output 02/17/20 02/18/20 02/19/20 02/20/20 23:59 23:59 23:59 23:59 Intake Total 2926 / 3397 4216 / 4216 3963 / 3963 320 / 320 Output Total 2600 / 2800 2875 / 2875 2875 / 2875 700 / 700 Balance 326 / 597 1341 / 1341 1088 / 1088 -380 / -380 Physical Exam Oriented: Normal Eyes: Normal Ear: Normal Nose: Normal Throat: Normal Respiratory: Diminished Cardiovascular: Normal : Normal Auscultation: Bowel Sounds: Normal Tenderness: Normal Skin: Normal Musculoskeletal: Normal Psychiatric: Normal Mood Description: Calm and Appropriate Affect: Normal Speech Pattern: Clear and Appropriate Laboratory and Diagnostics Result Diagrams: 02/20/20 04:37 02/20/20 04:37 Labs: 02/10/20 16:05 Blood Blood Culture - Final 02/10/20 16:01 Blood Blood Culture - Final Laboratory WBC 13.4 X10^3/uL (3.6-10.0) H 02/20/20 04:37 RBC 3.99 X10^6/uL (3.5-5.4) 02/20/20 04:37 Hgb 11.9 g/dL (12.0-16.0) L 02/20/20 04:37 Hct 35.4 % (36.0-47.0) L 02/20/20 04:37 MCV 88.7 fL (80.0-100.0) 02/20/20 04:37 MCH 29.8 pg (27.0-34.0) 02/20/20 04:37 MCHC 33.6 g/dL (33.0-35.0) 02/20/20 04:37 RDW 13.8 % (11.6-16.5) 02/20/20 04:37 Plt Count 201 X10^3/uL (150.0-450.0) 02/20/20 04:37 Plt Count Comment Adequate (ADEQUATE) 02/20/20 04:37 MPV 8.9 fL (7.4-11.0) 02/20/20 04:37 Neut % (Auto) 95.9 % (42.0-75.0) H 02/20/20 04:37 Lymph % (Auto) 1.5 % (21.0-51.0) L 02/20/20 04:37 [place] % (Auto) 2.2 % (0.0-13.0) 02/20/20 04:37 Eos % (Auto) 0.1 % (0.9-2.9) L 02/20/20 04:37 Baso % (Auto) 0.3 % (0.2-1.0) 02/20/20 04:37 Neut # (Auto) 12.9 x10^3/uL (2.2-4.8) H 02/20/20 04:37 Lymph # (Auto) 0.2 X10^3/uL (1.3-2.9) L 02/20/20 04:37 [place] # (Auto) 0.3 x10^3/uL (0.3-0.8) 02/20/20 04:37 Eos # (Auto) 0.0 x10^3/uL (0.0-0.2) 02/20/20 04:37 Baso # (Auto) 0.0 X10^3/uL (0.0-0.1) 02/20/20 04:37 Absolute Nucleated RBC 0.0 /100WBC 02/20/20 04:37 Total Counted 100 02/20/20 04:37 Neutrophils % (Manual) 96 % (39-76) H 02/20/20 04:37 Band Neutrophils % 1 % (0-10) 02/14/20 05:10 Lymphocytes % (Manual) 2 % (13-43) L 02/20/20 04:37 Monocytes % (Manual) 2 % (4-9) L 02/20/20 04:37 Plt Morphology Comment Normal (NORMAL) 02/20/20 04:37 RBC Morphology Normal (NORMAL) 02/20/20 04:37 D-Dimer 2.90 ug/ml (0.0-0.57) H* 02/10/20 16:01 Sample Site Lr 02/20/20 07:28 ABG pH 7.530 (7.35-7.45) H 02/20/20 07:28 ABG pCO2 38.0 mmHg (35.0-45.0) 02/20/20 07:28 ABG pO2 69.0 mmHg (80.0-100.0) L 02/20/20 07:28 ABG HCO3 31.8 mmol/L (22-26) H* 02/20/20 07:28 ABG O2 Saturation 95.0 % (90-100) 02/20/20 07:28 ABG Base Excess 8.5 mmol/L (-2.0-2.0) H 02/20/20 07:28 Gage Test Pos 02/20/20 07:28 A-a Gradient 383.0 mmHg 02/20/20 07:28 FiO2 70.0 02/20/20 07:28 Blood 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 02/20/20 07:28 Sodium 132 mmol/L (136-145) L 02/20/20 04:37 Corrected Sodium 133 mmol/L (136-145) L 02/20/20 04:37 Potassium 4.3 mmol/L (3.5-5.1) 02/20/20 04:37 Chloride 99 mmol/L (98-107) 02/20/20 04:37 Carbon Dioxide 28.6 mmol/L (21-32) 02/20/20 04:37 BUN 20 mg/dL (7-18) H 02/20/20 04:37 Creatinine 0.68 mg/dL (0.55-1.02) 02/20/20 04:37 Est GFR (MDRD) Af Amer > 60 (>60) 02/20/20 04:37 Est GFR (MDRD) Non-Af > 60 (>60) 02/20/20 04:37 Glucose 123 mg/dL (65-99) H 02/20/20 04:37 Lactic Acid 1.6 mmol/L (0.4-2.0) 02/10/20 16:01 Calcium 7.9 mg/dL (8.5-10.1) L 02/20/20 04:37 Corrected Calcium 9.8 mg/dL (8.5-10.1) 02/20/20 04:37 Ferritin 682 ng/mL (8-252) H 02/11/20 04:20 Total Bilirubin 0.30 mg/dL (0.2-1.0) 02/20/20 04:37 AST 48 Units/L (15-37) H 02/20/20 04:37 ALT 39 Units/L (12-78) 02/20/20 04:37 Alkaline Phosphatase 326 Units/L (46-116) H 02/20/20 04:37 Creatine Kinase 52 Units/L (26-192) 02/10/20 16:01 CK-MB (CK-2) < 1.0 ng/mL (0-4.0) 02/10/20 16:01 CK/CKMB % Calc 1.9 % (<4) 02/10/20 16:01 Troponin I < 0.02 ng/mL (0-1.5) 02/10/20 23:00 C-Reactive Protein 65.40 mg/L (0-3.0) H 02/12/20 05:39 Total Protein 5.2 g/dL (6.4-8.2) L 02/20/20 04:37 Albumin 1.6 g/dL (3.4-5.0) L 02/20/20 04:37 Globulin 3.6 g/dL (2.5-4.5) 02/20/20 04:37 Albumin/Globulin Ratio 0.4 Ratio (1.1-2.1) L 02/20/20 04:37 Specimen Type Catherized urine 02/15/20 10:30 Urine Color Yellow (YELLOW) 02/15/20 10:30 Urine Appearance Clear (CLEAR) 02/15/20 10:30 Urine pH 7.0 (5.0 - 8.0) 02/15/20 10:30 Ur Specific [place] 1.010 (1.000-1.030) 02/15/20 10:30 Urine Protein Negative (NEGATIVE) 02/15/20 10:30 Urine Glucose (UA) Negative (NEGATIVE) 02/15/20 10:30 Urine Ketones Negative (NEGATIVE) 02/15/20 10:30 Urine Occult Blood Negative (NEGATIVE) 02/15/20 10:30 Urine Nitrite Negative (NEGATIVE) 02/15/20 10:30 Urine Bilirubin Negative (NEGATIVE) 02/15/20 10:30 Urine Urobilinogen Normal (NORMAL) 02/15/20 10:30 Ur Leukocyte Esterase Negative (NEGATIVE) 02/15/20 10:30 SARS CoV-2 RNA Rapid GREGG Positive (NEGATIVE) A 02/11/20 02:40 Plan (1) Pneumonia due to COVID-19 virus: Status: Acute Plan: Remdesivir, Bronchodilators, Solumedrol, Levaquin, I/S, supplemental O2 (2) Hypoxia: Status: Acute
[2020-02-20] MEDS ORDERED: SOLU-Medrol 40 MG VIAL IVP SCH (14:00)
[2020-02-20] MEDS: SOLU-Medrol 125 MG VIAL IVP SCH ×2 (14:20→23:40)
[2020-02-20] MEDS: NEURONTIN CAP 300 MG PO SCH (23:40)
[2020-02-20] MEDS: COLACE CAP 100 MG PO SCH (23:40)
[2020-02-20] MEDS: TYLENOL 500 MG TAB EXTRA STRENGTH PO PRN (23:40)
[2020-02-21] MEDS: NS 1000 ML 1,000 ML IV SCH (01:42)
[2020-02-21] MEDS: LEVAQUIN PREMIX IV 750 MG 750 MG/150 ML BAG IV SCH ×2 (01:53→21:45)
[2020-02-21] MEDS: ASCORBIC ACID INJ MULTI-DOSE VIAL 1,500 MG in NS 50 ML IV 50 ML IV SCH ×4 (03:51→21:30)
[2020-02-21] MEDS: SOLU-Medrol 125 MG VIAL IVP SCH ×3 (06:00→21:46)
[2020-02-21 06:49] LABS: BASOPHILS % (AUTO) 0.2 % (0.2-1.0); EOSINOPHILS % (AUTO) 0.1 % (0.9-2.9); HEMATOCRIT 40.5 % (36.0-47.0); HEMOGLOBIN 13.4 g/dL (12.0-16.0); LYMPHOCYTES # (AUTO) 0.2 X10^3/uL (1.3-2.9); LYMPHOCYTES % (AUTO) 0.9 % (21.0-51.0); MEAN CORPUSCULAR HGB CONC 33.2 g/dL (33.0-35.0); MEAN CORPUSCULAR VOLUME 90.4 fL (80.0-100.0); MEAN PLATELET VOLUME 8.5 fL (7.4-11.0); MONOCYTES # (AUTO) 0 x10^3/uL (0.3-0.8); MONOCYTES % (AUTO) 0.2 % (0.0-13.0); NEUTROPHILS # (AUTO) 17.1 x10^3/uL (2.2-4.8); NEUTROPHILS % (AUTO) 98.6 % (42.0-75.0); PLATELET COUNT 211 X10^3/uL (150.0-450.0); RED BLOOD COUNT 4.48 X10^6/uL (3.5-5.4); RED CELL DISTRIBUTION WIDTH 14.2 % (11.6-16.5); WHITE BLOOD COUNT 17.4 X10^3/uL (3.6-10.0)
[2020-02-21 07:10] LABS: ALANINE AMINOTRANSFERASE 39 Units/L (12-78); ALBUMIN 1.9 g/dL (3.4-5.0); ALKALINE PHOSPHATASE 461 Units/L (46-116); ASPARTATE AMINO TRANSFERASE 53 Units/L (15-37); BLOOD UREA NITROGEN 28 mg/dL (7-18); CALCIUM 8.4 mg/dL (8.5-10.1); CARBON DIOXIDE 28.9 mmol/L (21-32); CHLORIDE 100 mmol/L (98-107); COR CA(FOR HYPOALB) 10.1 mg/dL (8.5-10.1); COR NA(FOR HYPERGLY) 136 mmol/L (136-145); CREATININE 0.78 mg/dL (0.55-1.02); SODIUM 135 mmol/L (136-145); TOTAL PROTEIN 6.2 g/dL (6.4-8.2); eGFR NON BLACK RACES > 60 (>60)
[2020-02-21 07:49] LABS: PLATELET MORPHOLOGY COMMENT NORMAL (NORMAL)
[2020-02-21] MEDS: LOVENOX INJ 30 MG SYR SC SCH ×2 (08:12→21:45)
[2020-02-21] MEDS: LIPITOR TAB 40 MG PO SCH (08:12)
[2020-02-21] MEDS: SYNTHROID 50 mcg TAB PO SCH (08:13)
[2020-02-21] MEDS: MILK OF MAGNESIA PO SCH (08:13)
[2020-02-21] MEDS: PEPCID TAB 20 MG PO SCH ×2 (08:13→21:45)
[2020-02-21] MEDS: ROBITUSSIN DM PO SCH ×4 (08:13→21:45)
[2020-02-21] MEDS: PROTONIX TAB 40 MG PO SCH ×2 (08:13→21:45)
[2020-02-21] MEDS: TRICOR TAB 160 MG PO SCH (08:14)
[2020-02-21] MEDS: VSL#3 PO SCH (08:14)
[2020-02-21] MEDS: VITAMIN A PO SCH (08:14)
[2020-02-21] MEDS: VITAMIN D3 125 mcg (5,000 UNITS) PO SCH (08:14)
[2020-02-21] MEDS: ZINC SULFATE PO SCH ×2 (08:15→21:31)
[2020-02-21] MEDS: DUONEB 0.5 MG/3 MG (3 mL) NEB SCH ×4 (08:49→20:00)
[2020-02-21] MEDS ORDERED: PHARMACY CONSULT - TPN XX SCH (12:00)
--- NOTE | 2020-02-21 13:27 | PCM.PROG ---
Progress Note Progress Note for Day of Date of Exam: 02/21/20 Subjective Subjective: Pt is a 74 year old female past medical history Multiple Sclerosis, Hypothyroidism, admitted for COVID-19 pneumonia (positive on 02/10). This morning patient remains on BiPAP support. Per nursing when she wanted to eat and removed BiPAP for heated high flow, her oxygen levels rapidly dropped into the 40s and she had to be placed back on BiPAP. Labs/imaging: Wbc 17.4 Hgb 13.4, Plt 211, Na 135, K 4.3, Cr 0.78, Glucose 124. AB.53/38/69/31/95% on BiPAP FiO2 70%. Her hospital/treatment course includes: Remdesivir(completed course), Solumedrol 125mg q8h, Bronchodilators, Antibiotics: Levaquin(completed course), IVF@KVO, immune supporting supplements, supplemental O2, I/S, Respiratory th erapy consult, Pneumonia protocol. Pt is currently on BiPAP support with FiO2 100% with O2 sats in low 90s. Will continue to titrate or wean as necessary. Her alk phos levels have been gradually increasing, will order ultrasound abdomen for evaluation. Due to being on BiPAP her nutrition has decreased, will consult pharmacy for procal or TPN. Leukocytosis likely steroid induced due to recent dose increase. Otherwise continue current treatment plan. Will monitor closely and follow up labs/imaging in the morning. Critical care time spent 30-74 minutes in clinical assessment, reviewing labs/imaging, decision making, and documentation. Past Medical Family Social History Past Med/Fam/Surg Hx: No changes since H&P Allergies: Allergies bacitracin [From Neosporin ([id number])] Allergy (Verified 02/10/20 17:21) cephalexin [From Keflex] Allergy (Verified 02/10/20 17:21) neomycin [From Neosporin ([id number])] Allergy (Verified 02/10/20 17:21) ofloxacin [From Floxin] Allergy (Verified 02/10/20 17:21) polymyxin B [From Neosporin ([id number])] Allergy (Verified 02/10/20 17:21) Review of Systems ROS: No change since H&P Vital Signs and I&O's Vital Signs: Temperature 98.2 F Pulse Rate [Right Radial] 82 Pulse Rate 100 Respiratory Rate 24 Blood Pressure [Left Arm] 142/68 Blood Pressure 164/77 O2 Sat by Pulse Oximetry 93 Intake and Output: Intake & Output 02/18/20 02/19/20 02/20/20 02/21/20 23:59 23:59 23:59 23:59 Intake Total 4216 / 4216 3963 / 3963 1080 / 1080 330 / 330 Output Total 2875 / 2875 2875 / 2875 1725 / 1725 225 / 225 Balance 1341 / 1341 1088 / 1088 -645 / -645 105 / 105 Physical Exam Oriented: Normal Eyes: Normal Ear: Normal Nose: Normal Throat: Normal Respiratory: Diminished Cardiovascular: Normal : Normal Auscultation: Bowel Sounds: Normal Tenderness: Normal Skin: Normal Musculoskeletal: Normal Psychiatric: Normal Mood Description: Calm and Appropriate Affect: Normal Speech Pattern: Clear and Appropriate Laboratory and Diagnostics Result Diagrams: 02/21/20 06:24 02/21/20 06:24 Labs: 02/10/20 16:05 Blood Blood Culture - Final 02/10/20 16:01 Blood Blood Culture - Final Laboratory WBC 17.4 X10^3/uL (3.6-10.0) H 02/21/20 06:24 RBC 4.48 X10^6/uL (3.5-5.4) 02/21/20 06:24 Hgb 13.4 g/dL (12.0-16.0) 02/21/20 06:24 Hct 40.5 % (36.0-47.0) 02/21/20 06:24 MCV 90.4 fL (80.0-100.0) 02/21/20 06:24 MCH 30.0 pg (27.0-34.0) 02/21/20 06:24 MCHC 33.2 g/dL (33.0-35.0) 02/21/20 06:24 RDW 14.2 % (11.6-16.5) 02/21/20 06:24 Plt Count 211 X10^3/uL (150.0-450.0) 02/21/20 06:24 Plt Count Comment Adequate (ADEQUATE) 02/21/20 06:24 MPV 8.5 fL (7.4-11.0) 02/21/20 06:24 Neut % (Auto) 98.6 % (42.0-75.0) H 02/21/20 06:24 Lymph % (Auto) 0.9 % (21.0-51.0) L 02/21/20 06:24 [place] % (Auto) 0.2 % (0.0-13.0) 02/21/20 06:24 Eos % (Auto) 0.1 % (0.9-2.9) L 02/21/20 06:24 Baso % (Auto) 0.2 % (0.2-1.0) 02/21/20 06:24 Neut # (Auto) 17.1 x10^3/uL (2.2-4.8) H 02/21/20 06:24 Lymph # (Auto) 0.2 X10^3/uL (1.3-2.9) L 02/21/20 06:24 [place] # (Auto) 0 x10^3/uL (0.3-0.8) L 02/21/20 06:24 Eos # (Auto) 0.0 x10^3/uL (0.0-0.2) 02/21/20 06:24 Baso # (Auto) 0.0 X10^3/uL (0.0-0.1) 02/21/20 06:24 Absolute Nucleated RBC 0.0 /100WBC 02/21/20 06:24 Total Counted 100 02/21/20 06:24 Neutrophils % (Manual) 97 % (39-76) H 02/21/20 06:24 Band Neutrophils % 1 % (0-10) 02/14/20 05:10 Lymphocytes % (Manual) 3 % (13-43) L 02/21/20 06:24 Monocytes % (Manual) 2 % (4-9) L 02/20/20 04:37 Plt Morphology Comment Normal (NORMAL) 02/21/20 06:24 RBC Morphology Normal (NORMAL) 02/21/20 06:24 D-Dimer 2.90 ug/ml (0.0-0.57) H* 02/10/20 16:01 Sample Site Lr 02/20/20 07:28 ABG pH 7.530 (7.35-7.45) H 02/20/20 07:28 ABG pCO2 38.0 mmHg (35.0-45.0) 02/20/20 07:28 ABG pO2 69.0 mmHg (80.0-100.0) L 02/20/20 07:28 ABG HCO3 31.8 mmol/L (22-26) H* 02/20/20 07:28 ABG O2 Saturation 95.0 % (90-100) 02/20/20 07:28 ABG Base Excess 8.5 mmol/L (-2.0-2.0) H 02/20/20 07:28 Gage Test Pos 02/20/20 07:28 A-a Gradient 383.0 mmHg 02/20/20 07:28 FiO2 70.0 02/20/20 07:28 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 Sodium 135 mmol/L (136-145) L 02/21/20 06:24 Corrected Sodium 136 mmol/L (136-145) 02/21/20 06:24 Potassium 4.3 mmol/L (3.5-5.1) 02/21/20 06:24 Chloride 100 mmol/L (98-107) 02/21/20 06:24 Carbon Dioxide 28.9 mmol/L (21-32) 02/21/20 06:24 BUN 28 mg/dL (7-18) H 02/21/20 06:24 Creatinine 0.78 mg/dL (0.55-1.02) 02/21/20 06:24 Est GFR (MDRD) Af Amer > 60 (>60) 02/21/20 06:24 Est GFR (MDRD) Non-Af > 60 (>60) 02/21/20 06:24 Glucose 124 mg/dL (65-99) H 02/21/20 06:24 Lactic Acid 1.6 mmol/L (0.4-2.0) 02/10/20 16:01 Calcium 8.4 mg/dL (8.5-10.1) L 02/21/20 06:24 Corrected Calcium 10.1 mg/dL (8.5-10.1) 02/21/20 06:24 Ferritin 682 ng/mL (8-252) H 02/11/20 04:20 Total Bilirubin 0.40 mg/dL (0.2-1.0) 02/21/20 06:24 AST 53 Units/L (15-37) H 02/21/20 06:24 ALT 39 Units/L (12-78) 02/21/20 06:24 Alkaline Phosphatase 461 Units/L (46-116) H 02/21/20 06:24 Creatine Kinase 52 Units/L (26-192) 02/10/20 16:01 CK-MB (CK-2) < 1.0 ng/mL (0-4.0) 02/10/20 16:01 CK/CKMB % Calc 1.9 % (<4) 02/10/20 16:01 Troponin I < 0.02 ng/mL (0-1.5) 02/10/20 23:00 C-Reactive Protein 65.40 mg/L (0-3.0) H 02/12/20 05:39 Total Protein 6.2 g/dL (6.4-8.2) L 02/21/20 06:24 Albumin 1.9 g/dL (3.4-5.0) L 02/21/20 06:24 Globulin 4.3 g/dL (2.5-4.5) 02/21/20 06:24 Albumin/Globulin Ratio 0.4 Ratio (1.1-2.1) L 02/21/20 06:24 Prealbumin 17.8 mg/dL (18-35.7) L 02/21/20 06:24 Specimen Type Catherized urine 02/15/20 10:30 Urine Color Yellow (YELLOW) 02/15/20 10:30 Urine Appearance Clear (CLEAR) 02/15/20 10:30 Urine pH 7.0 (5.0 - 8.0) 02/15/20 10:30 Ur Specific [place] 1.010 (1.000-1.030) 02/15/20 10:30 Urine Protein Negative (NEGATIVE) 02/15/20 10:30 Urine Glucose (UA) Negative (NEGATIVE) 02/15/20 10:30 Urine Ketones Negative (NEGATIVE) 02/15/20 10:30 Urine Occult Blood Negative (NEGATIVE) 02/15/20 10:30 Urine Nitrite Negative (NEGATIVE) 02/15/20 10:30 Urine Bilirubin Negative (NEGATIVE) 02/15/20 10:30 Urine Urobilinogen Normal (NORMAL) 02/15/20 10:30 Ur Leukocyte Esterase Negative (NEGATIVE) 02/15/20 10:30 SARS CoV-2 RNA Rapid GREGG Positive (NEGATIVE) A 02/11/20 02:40 Plan (1) Pneumonia due to COVID-19 virus: Status: Acute Plan: Remdesivir, Bronchodilators, Solumedrol, Levaquin, I/S, supplemental O2 (2) Hypoxia: Status: Acute
--- NOTE | 2020-02-21 14:25 | RAD ---
HISTORYCOVID-19 pneumoniaSTUDYCHEST, 1 VIEWCOMPARISONJanuary 2020 at 9:23 a.m.TECHNIQUEPortable AP chest radiograph 1 imageFINDINGSMild cardiomegaly.Diffuse bilateral airspace opacities with slight sparing of the right lung apex.Lucency along the left heart border and aortic arch has developed since the previous exam.No pleural effusion.No pneumothorax.No acute osseous abnormality.IMPRESSION1. No significant interval change in the distribution or severity of the airspace disease when compared to the previous exam; consistent with a COVID-19 respiratory infection.2. Lucency along the left heart border and aortic arch has developed since the previous exam. Finding likely represents pneumomediastinum; although a small pneumothorax is not excluded. No mediastinal shift. Recommend a right lateral decubitus image or noncontrast chest CT for further characterization.Electronically signed by: Wilfredo Franklin (Feb 21, 2020 14:24:19)
[2020-02-21] MEDS: PROCALAMINE 3 % 1,000 ML IV SCH (15:36)
[2020-02-21] MEDS: ATIVAN TAB 0.5 MG PO PRN (17:00)
--- NOTE | 2020-02-21 17:40 | RAD ---
[facility], one viewCOMPARISONEarlier this dateFINDINGSA follow-up right lateral decubitus view of the chest demonstrates no evidence for pneumothorax. There is persistent suggestion of pneumomediastinum.IMPRESSIONNo pneumothorax demonstrated.Electronically signed by: ALESSANDRO RAJPUT (Feb 21, 2020 17:38:40)
[2020-02-21] MEDS: COLACE CAP 100 MG PO SCH (21:45)
[2020-02-21] MEDS: TYLENOL 500 MG TAB EXTRA STRENGTH PO PRN (21:45)
[2020-02-21] MEDS: NEURONTIN CAP 300 MG PO SCH (21:45)
[2020-02-22] MEDS: NS 1000 ML 1,000 ML IV SCH (00:29)
[2020-02-22] MEDS ORDERED: LOPRESSOR INJ 5 MG AMP IVP ONE ×3 (00:30→17:25)
[2020-02-22] MEDS ORDERED: LOPRESSOR INJ 5 MG AMP ONE (00:35)
[2020-02-22] MEDS: ASCORBIC ACID INJ MULTI-DOSE VIAL 1,500 MG in NS 50 ML IV 50 ML IV SCH ×4 (03:48→20:54)
[2020-02-22] MEDS: TYLENOL 500 MG TAB EXTRA STRENGTH PO PRN ×2 (03:48→21:18)
[2020-02-22 05:40] LABS: ABG BASE EXCESS 8.6 mmol/L (-2.0-2.0)
[2020-02-22 05:41] LABS: ABG HCO3 31.6 mmol/L (22-26)
[2020-02-22 05:42] LABS: ABG ALLEN TEST POS
[2020-02-22 05:52] LABS: BASOPHILS % (AUTO) 0.3 % (0.2-1.0); HEMATOCRIT 38.6 % (36.0-47.0); HEMOGLOBIN 12.5 g/dL (12.0-16.0); LYMPHOCYTES # (AUTO) 0.2 X10^3/uL (1.3-2.9); LYMPHOCYTES % (AUTO) 1.4 % (21.0-51.0); MEAN CORPUSCULAR HEMOGLOBIN 29.1 pg (27.0-34.0); MEAN CORPUSCULAR HGB CONC 32.3 g/dL (33.0-35.0); MEAN CORPUSCULAR VOLUME 90.2 fL (80.0-100.0); MEAN PLATELET VOLUME 8.1 fL (7.4-11.0); MONOCYTES # (AUTO) 0.4 x10^3/uL (0.3-0.8); MONOCYTES % (AUTO) 2.3 % (0.0-13.0); NEUTROPHILS # (AUTO) 14.6 x10^3/uL (2.2-4.8); PLATELET COUNT 194 X10^3/uL (150.0-450.0); RED BLOOD COUNT 4.28 X10^6/uL (3.5-5.4); RED CELL DISTRIBUTION WIDTH 14.3 % (11.6-16.5); WHITE BLOOD COUNT 15.2 X10^3/uL (3.6-10.0)
[2020-02-22 06:07] LABS: ALANINE AMINOTRANSFERASE 27 Units/L (12-78); ALBUMIN 1.4 g/dL (3.4-5.0); ALKALINE PHOSPHATASE 412 Units/L (46-116); ASPARTATE AMINO TRANSFERASE 50 Units/L (15-37); BLOOD UREA NITROGEN 26 mg/dL (7-18); CALCIUM 7.9 mg/dL (8.5-10.1); CARBON DIOXIDE 28.6 mmol/L (21-32); CHLORIDE 103 mmol/L (98-107); COR NA(FOR HYPERGLY) 138 mmol/L (136-145); SODIUM 138 mmol/L (136-145); eGFR NON BLACK RACES > 60 (>60)
[2020-02-22] MEDS: SOLU-Medrol 125 MG VIAL IVP SCH ×3 (06:16→21:16)
[2020-02-22 06:25] LABS: PLATELET MORPHOLOGY COMMENT NORMAL (NORMAL)
[2020-02-22] MEDS: DUONEB 0.5 MG/3 MG (3 mL) NEB SCH ×4 (08:20→21:50)
[2020-02-22] MEDS ORDERED: LOPRESSOR TAB 25 MG PO SCH (09:00)
[2020-02-22] MEDS: LOVENOX INJ 30 MG SYR SC SCH ×2 (09:31→20:52)
[2020-02-22] MEDS: MILK OF MAGNESIA PO SCH (09:31)
[2020-02-22] MEDS: LIPITOR TAB 40 MG PO SCH (09:31)
[2020-02-22] MEDS: VITAMIN A PO SCH (09:32)
[2020-02-22] MEDS: PEPCID TAB 20 MG PO SCH ×2 (09:32→20:51)
[2020-02-22] MEDS: PROTONIX TAB 40 MG PO SCH ×2 (09:32→20:52)
[2020-02-22] MEDS: SYNTHROID 50 mcg TAB PO SCH (09:32)
[2020-02-22] MEDS: ROBITUSSIN DM PO SCH ×4 (09:32→20:51)
[2020-02-22] MEDS: VITAMIN D3 125 mcg (5,000 UNITS) PO SCH (09:42)
[2020-02-22] MEDS: ZINC SULFATE PO SCH ×2 (09:42→20:51)
[2020-02-22] MEDS: VSL#3 PO SCH (09:42)
[2020-02-22] MEDS: ATIVAN TAB 0.5 MG PO PRN ×2 (09:43→21:18)
--- NOTE | 2020-02-22 12:58 | PCM.PROG ---
Progress Note Progress Note for Day of Date of Exam: 02/22/20 Subjective Subjective: Pt is a 74 year old female past medical history Multiple Sclerosis, Hypothyroidism, admitted for COVID-19 pneumonia (positive on 02/10). This morning patient's breathing status has worsened. She remains on BiPAP support and has required increase in her FiO2 to max. Labs/imaging: Wbc 15.2 Hgb 12.5, Plt 194, Na 138, K 4.5, Cr 0.60, Glucose 115. AB.54/37/50/31.6/90% on BiPAP FiO2 100%, CXR: No evidence for pneumothorax. There is persistent suggestion of pneumomediastinum. Overnight she had episode of atrial fibrillation and was given IV metoprolol that allowed her to return to rate controlled. However, pt continued to have atrial fibrillation with RVR throughout the day, ordered IV m etoprolol 5mg x 1 dose. Will start metoprolol tartrate 25mg BID. Her hospital/treatment course includes: Remdesivir(completed course), Solumedrol 125mg q8h, Bronchodilators, Antibiotics: Levaquin(completed course), IVF@KVO, immune supporting supplements, Procal nutrition, supplemental O2, I/S, Respi ratory therapy consult, Pneumonia protocol. Pt is currently on BiPAP support with FiO2 100% with O2 sats in upper 80s. Will continue to titrate or wean as necessary. Her alk phos levels are elevated, ultrasound abdomen ordered for evaluation. Discussed with daughter Yumiko Luke update on patient's hospital course. Discussed with patient that if her oxygen saturations do not improve, next option would be mechanical ventilation. Pt did agree if necessary does want to pursue with mechanical ventilation, otherwise will continue current treatment plan. Will monitor closely and follow up labs/imaging in the morning. Critical care time spent 30-74 minutes in clinical assessment, reviewing labs /imaging, decision making, and documentation. Past Medical Family Social History Past Med/Fam/Surg Hx: No changes since H&P Allergies: Allergies bacitracin [From Neosporin ([id number])] Allergy (Verified 02/10/20 17:21) cephalexin [From Keflex] Allergy (Verified 02/10/20 17:21) neomycin [From Neosporin ([id number])] Allergy (Verified 02/10/20 17:21) ofloxacin [From Floxin] Allergy (Verified 02/10/20 17:21) polymyxin B [From Neosporin ([id number])] Allergy (Verified 02/10/20 17:21) Review of Systems ROS: No change since H&P Vital Signs and I&O's Vital Signs: Temperature 98.1 F Pulse Rate [Right Radial] 788 Pulse Rate 120 Respiratory Rate 24 Blood Pressure [Left Arm] 134/62 Blood Pressure 140/66 O2 Sat by Pulse Oximetry 84 Intake and Output: Intake & Output 02/19/20 02/20/20 02/21/20 02/22/20 23:59 23:59 23:59 23:59 Intake Total 3963 / 3963 1080 / 1080 1781 / 1781 834 / 834 Output Total 2875 / 2875 1725 / 1725 475 / 475 425 / 425 Balance 1088 / 1088 -645 / -645 1306 / 1306 409 / 409 Physical Exam Oriented: Normal Eyes: Normal Ear: Normal Nose: Normal Throat: Normal Respiratory: Diminished Cardiovascular: Normal : Normal Auscultation: Bowel Sounds: Normal Tenderness: Normal Skin: Normal Musculoskeletal: Normal Psychiatric: Normal Mood Description: Calm and Appropriate Affect: Normal Speech Pattern: Clear and Appropriate Laboratory and Diagnostics Result Diagrams: 02/22/20 04:55 02/22/20 04:55 Labs: 02/10/20 16:05 Blood Blood Culture - Final 02/10/20 16:01 Blood Blood Culture - Final Laboratory WBC 15.2 X10^3/uL (3.6-10.0) H 02/22/20 04:55 RBC 4.28 X10^6/uL (3.5-5.4) 02/22/20 04:55 Hgb 12.5 g/dL (12.0-16.0) 02/22/20 04:55 Hct 38.6 % (36.0-47.0) 02/22/20 04:55 MCV 90.2 fL (80.0-100.0) 02/22/20 04:55 MCH 29.1 pg (27.0-34.0) 02/22/20 04:55 MCHC 32.3 g/dL (33.0-35.0) L 02/22/20 04:55 RDW 14.3 % (11.6-16.5) 02/22/20 04:55 Plt Count 194 X10^3/uL (150.0-450.0) 02/22/20 04:55 Plt Count Comment Adequate (ADEQUATE) 02/22/20 04:55 MPV 8.1 fL (7.4-11.0) 02/22/20 04:55 Neut % (Auto) 96.0 % (42.0-75.0) H 02/22/20 04:55 Lymph % (Auto) 1.4 % (21.0-51.0) L 02/22/20 04:55 [place] % (Auto) 2.3 % (0.0-13.0) 02/22/20 04:55 Eos % (Auto) 0.0 % (0.9-2.9) L 02/22/20 04:55 Baso % (Auto) 0.3 % (0.2-1.0) 02/22/20 04:55 Neut # (Auto) 14.6 x10^3/uL (2.2-4.8) H 02/22/20 04:55 Lymph # (Auto) 0.2 X10^3/uL (1.3-2.9) L 02/22/20 04:55 [place] # (Auto) 0.4 x10^3/uL (0.3-0.8) 02/22/20 04:55 Eos # (Auto) 0.0 x10^3/uL (0.0-0.2) 02/22/20 04:55 Baso # (Auto) 0.0 X10^3/uL (0.0-0.1) 02/22/20 04:55 Absolute Nucleated RBC 0.0 /100WBC 02/22/20 04:55 Total Counted 100 02/22/20 04:55 Neutrophils % (Manual) 100 % (39-76) H 02/22/20 04:55 Band Neutrophils % 1 % (0-10) 02/14/20 05:10 Lymphocytes % (Manual) Not Reportable 02/22/20 04:55 Monocytes % (Manual) 2 % (4-9) L 02/20/20 04:37 Plt Morphology Comment Normal (NORMAL) 02/22/20 04:55 RBC Morphology Normal (NORMAL) 02/22/20 04:55 D-Dimer 2.75 ug/ml (0.0-0.57) H* 02/22/20 04:55 Sample Site Lr 02/22/20 05:00 ABG pH 7.540 (7.35-7.45) H 02/22/20 05:00 ABG pCO2 37.0 mmHg (35.0-45.0) 02/22/20 05:00 ABG pO2 50.0 mmHg (80.0-100.0) L 02/22/20 05:00 ABG HCO3 31.6 mmol/L (22-26) H* 02/22/20 05:00 ABG O2 Saturation 90.0 % (90-100) 02/22/20 05:00 ABG Base Excess 8.6 mmol/L (-2.0-2.0) H 02/22/20 05:00 Gage Test Pos 02/22/20 05:00 A-a Gradient 617.0 mmHg 02/22/20 05:00 FiO2 100.0 02/22/20 05:00 Blood Gas Comments [place] well sw 02/22/20 05:00 Sodium 138 mmol/L (136-145) 02/22/20 04:55 Corrected Sodium 138 mmol/L (136-145) 02/22/20 04:55 Potassium 4.5 mmol/L (3.5-5.1) 02/22/20 04:55 Chloride 103 mmol/L (98-107) 02/22/20 04:55 Carbon Dioxide 28.6 mmol/L (21-32) 02/22/20 04:55 BUN 26 mg/dL (7-18) H 02/22/20 04:55 Creatinine 0.60 mg/dL (0.55-1.02) 02/22/20 04:55 Est GFR (MDRD) Af Amer > 60 (>60) 02/22/20 04:55 Est GFR (MDRD) Non-Af > 60 (>60) 02/22/20 04:55 Glucose 115 mg/dL (65-99) H 02/22/20 04:55 Lactic Acid 1.6 mmol/L (0.4-2.0) 02/10/20 16:01 Calcium 7.9 mg/dL (8.5-10.1) L 02/22/20 04:55 Corrected Calcium 10.0 mg/dL (8.5-10.1) 02/22/20 04:55 Ferritin 682 ng/mL (8-252) H 02/11/20 04:20 Total Bilirubin 0.30 mg/dL (0.2-1.0) 02/22/20 04:55 AST 50 Units/L (15-37) H 02/22/20 04:55 ALT 27 Units/L (12-78) 02/22/20 04:55 Alkaline Phosphatase 412 Units/L (46-116) H 02/22/20 04:55 Creatine Kinase 52 Units/L (26-192) 02/10/20 16:01 CK-MB (CK-2) < 1.0 ng/mL (0-4.0) 02/10/20 16:01 CK/CKMB % Calc 1.9 % (<4) 02/10/20 16:01 Troponin I < 0.02 ng/mL (0-1.5) 02/10/20 23:00 C-Reactive Protein 32.70 mg/L (0-3.0) H 02/22/20 04:55 Total Protein 5.0 g/dL (6.4-8.2) L 02/22/20 04:55 Albumin 1.4 g/dL (3.4-5.0) L 02/22/20 04:55 Globulin 3.6 g/dL (2.5-4.5) 02/22/20 04:55 Albumin/Globulin Ratio 0.4 Ratio (1.1-2.1) L 02/22/20 04:55 Prealbumin 17.8 mg/dL (18-35.7) L 02/21/20 06:24 Specimen Type Catherized urine 02/15/20 10:30 Urine Color Yellow (YELLOW) 02/15/20 10:30 Urine Appearance Clear (CLEAR) 02/15/20 10:30 Urine pH 7.0 (5.0 - 8.0) 02/15/20 10:30 Ur Specific [place] 1.010 (1.000-1.030) 02/15/20 10:30 Urine Protein Negative (NEGATIVE) 02/15/20 10:30 Urine Glucose (UA) Negative (NEGATIVE) 02/15/20 10:30 Urine Ketones Negative (NEGATIVE) 02/15/20 10:30 Urine Occult Blood Negative (NEGATIVE) 02/15/20 10:30 Urine Nitrite Negative (NEGATIVE) 02/15/20 10:30 Urine Bilirubin Negative (NEGATIVE) 02/15/20 10:30 Urine Urobilinogen Normal (NORMAL) 02/15/20 10:30 Ur Leukocyte Esterase Negative (NEGATIVE) 02/15/20 10:30 SARS CoV-2 RNA Rapid GREGG Positive (NEGATIVE) A 02/11/20 02:40 Plan (1) Pneumonia due to COVID-19 virus: Status: Acute Plan: Remdesivir, Bronchodilators, Solumedrol, Levaquin, I/S, supplemental O2 (2) Hypoxia: Status: Acute
[2020-02-22] MEDS: PROCALAMINE 3 % 1,000 ML IV SCH ×2 (13:38→16:40)
[2020-02-22] MEDS ORDERED: LOPRESSOR TAB 25 MG ONE (19:28)
[2020-02-22] MEDS: LOPRESSOR TAB 25 MG PO SCH (20:51)
[2020-02-22] MEDS: NEURONTIN CAP 300 MG PO SCH (20:52)
[2020-02-22] MEDS: COLACE CAP 100 MG PO SCH (20:53)
[2020-02-22] MEDS: LEVAQUIN PREMIX IV 750 MG 750 MG/150 ML BAG IV SCH (21:16)
[2020-02-23] MEDS: NS 1000 ML 1,000 ML IV SCH ×2 (02:16→16:49)
[2020-02-23] MEDS: ASCORBIC ACID INJ MULTI-DOSE VIAL 1,500 MG in NS 50 ML IV 50 ML IV SCH ×4 (02:16→20:00)
[2020-02-23 05:07] LABS: ABG BASE EXCESS 7.4 mmol/L (-2.0-2.0)
[2020-02-23] MEDS: SOLU-Medrol 125 MG VIAL IVP SCH ×3 (05:08→21:36)
[2020-02-23 05:09] LABS: ABG ALLEN TEST POS; ABG HCO3 31.2 mmol/L (22-26)
[2020-02-23] MEDS: TYLENOL 500 MG TAB EXTRA STRENGTH PO PRN (05:14)
[2020-02-23] MEDS: ATIVAN TAB 0.5 MG PO PRN (05:14)
[2020-02-23 06:16] LABS: BASOPHILS # (AUTO) 0.1 X10^3/uL (0.0-0.1); BASOPHILS % (AUTO) 0.6 % (0.2-1.0); EOSINOPHILS % (AUTO) 0.2 % (0.9-2.9); HEMATOCRIT 46.1 % (36.0-47.0); LYMPHOCYTES # (AUTO) 0.3 X10^3/uL (1.3-2.9); MEAN CORPUSCULAR HEMOGLOBIN 29.3 pg (27.0-34.0); MEAN CORPUSCULAR HGB CONC 32.5 g/dL (33.0-35.0); MEAN CORPUSCULAR VOLUME 90.3 fL (80.0-100.0); MONOCYTES # (AUTO) 0.3 x10^3/uL (0.3-0.8); MONOCYTES % (AUTO) 2.1 % (0.0-13.0); NEUTROPHILS # (AUTO) 13.3 x10^3/uL (2.2-4.8); NEUTROPHILS % (AUTO) 95.1 % (42.0-75.0); PLATELET COUNT 174 X10^3/uL (150.0-450.0); RED CELL DISTRIBUTION WIDTH 14.1 % (11.6-16.5)
[2020-02-23 06:26] LABS: ALANINE AMINOTRANSFERASE 31 Units/L (12-78); ALBUMIN 1.7 g/dL (3.4-5.0); ALKALINE PHOSPHATASE 502 Units/L (46-116); ASPARTATE AMINO TRANSFERASE 62 Units/L (15-37); BLOOD UREA NITROGEN 30 mg/dL (7-18); CALCIUM 8.5 mg/dL (8.5-10.1); CARBON DIOXIDE 27.1 mmol/L (21-32); CHLORIDE 103 mmol/L (98-107); COR CA(FOR HYPOALB) 10.3 mg/dL (8.5-10.1); CREATININE 0.57 mg/dL (0.55-1.02); SODIUM 138 mmol/L (136-145); TOTAL PROTEIN 6.2 g/dL (6.4-8.2); eGFR NON BLACK RACES > 60 (>60)
[2020-02-23 06:56] LABS: BAND NEUTROPHILS % 2 % (0-10); PLATELET MORPHOLOGY COMMENT NORMAL (NORMAL)
[2020-02-23] MEDS: LOPRESSOR TAB 25 MG PO SCH (08:12)
[2020-02-23] MEDS: LIPITOR TAB 40 MG PO SCH (08:12)
[2020-02-23] MEDS: LOVENOX INJ 30 MG SYR SC SCH (08:12)
[2020-02-23] MEDS: MILK OF MAGNESIA PO SCH (08:13)
[2020-02-23] MEDS: ROBITUSSIN DM PO SCH ×4 (08:18→21:36)
[2020-02-23] MEDS: PROTONIX TAB 40 MG PO SCH ×2 (08:18→21:36)
[2020-02-23] MEDS: SYNTHROID 50 mcg TAB PO SCH (08:18)
[2020-02-23] MEDS: PEPCID TAB 20 MG PO SCH ×2 (08:18→21:37)
[2020-02-23] MEDS: VITAMIN A PO SCH (08:19)
[2020-02-23] MEDS: VITAMIN D3 125 mcg (5,000 UNITS) PO SCH (08:20)
[2020-02-23] MEDS: VSL#3 PO SCH (08:20)
[2020-02-23] MEDS: ZINC SULFATE PO SCH ×2 (08:20→21:36)
[2020-02-23] MEDS: DUONEB 0.5 MG/3 MG (3 mL) NEB SCH ×4 (08:29→20:28)
[2020-02-23] MEDS ORDERED: CARDIZEM TAB 30 MG PLAIN PO ONE (08:34)
[2020-02-23] MEDS ORDERED: CARDIZEM INJ 50 MG VIAL IVP ONE ×2 (09:18→11:58)
--- NOTE | 2020-02-23 10:16 | PCM.PROG ---
Progress Note Progress Note for Day of Date of Exam: 02/23/20 Subjective Subjective: Pt is a 74 year old female past medical history Multiple Sclerosis, Hypothyroidism, admitted for COVID-19 pneumonia (positive on 02/10). This morning patient's breathing has shown no improvement. She remains on BiPAP support with FiO2 at 100%. She has continued to have Atrial fibrillation with RVR. Labs/imaging: Wbc 14, Hgb 15, Plt 174, Na 138, K 5.0, Cr 0.57, Glucose 110. AST: 62, ALT 31, AlP 502, CRP 54, AB.5/40/71/31/95% on BiPAP FiO2 100%, CXR: No evidence for pneumothorax. There is persistent suggestion of pneumomediastinum. Her hospital/ treatment course includes: Remdesivir(completed course), Solumedrol 125mg q8h, Bronchodilators, Antibiotics: Levaquin(completed course), IVF@KVO, immune supporting supplements, Procal nutrition, supplemental O2, I/S, Respiratory therapy consult, Pneumonia protocol. Pt is currently on BiPAP support with FiO2 100% with O2 sats in 90s. Will continue to titrate or wean as necessary. Her alk phos levels are elevated, ultrasound abdomen ordered for evaluation. Will decrease Solumedrol to 80mg q8h. For Afib w/ RVR, will give cardizem 10mg IV bolus and increase metoprolol tartrate to 50mg BID. Order Ekg and troponin. Change lovenox to eliquis. Will monitor closely and follow up labs/imaging in the morning. Critical care time spent 30-74 minutes in clinical assessment, reviewing labs/imaging, decision making, and documentation. Past Medical Family Social History Past Med/Fam/Surg Hx: No changes since H&P Allergies: Allergies bacitracin [From Neosporin ([id number])] Allergy (Verified 02/10/20 17:21) cephalexin [From Keflex] Allergy (Verified 02/10/20 17:21) neomycin [From Neosporin ([id number])] Allergy (Verified 02/10/20 17:21) ofloxacin [From Floxin] Allergy (Verified 02/10/20 17:21) polymyxin B [From Neosporin ([id number])] Allergy (Verified 02/10/20 17:21) Review of Systems ROS: No change since H&P Vital Signs and I&O's Vital Signs: Temperature 97.8 F Pulse Rate [Right Radial] 134 Pulse Rate 111 Respiratory Rate 28 Blood Pressure [Left Arm] 111/85 Blood Pressure 118/82 O2 Sat by Pulse Oximetry 94 Intake and Output: Intake & Output 02/20/20 02/21/20 02/22/20 02/23/20 23:59 23:59 23:59 23:59 Intake Total 1080 / 1080 1781 / 1781 2145 / 2145 885 / 885 Output Total 1725 / 1725 475 / 475 1125 / 1125 200 / 200 Balance -645 / -645 1306 / 1306 1020 / 1020 685 / 685 Physical Exam Oriented: Normal Eyes: Normal Ear: Normal Nose: Normal Throat: Normal Respiratory: Diminished Cardiovascular: Tachycardia and Irregular : Normal Auscultation: Bowel Sounds: Normal Tenderness: Normal Skin: Normal Musculoskeletal: Normal Psychiatric: Normal Mood Description: Calm and Appropriate Affect: Normal Speech Pattern: Clear and Appropriate Laboratory and Diagnostics Result Diagrams: 02/23/20 04:50 02/23/20 04:50 Labs: 02/10/20 16:05 Blood Blood Culture - Final 02/10/20 16:01 Blood Blood Culture - Final Laboratory WBC 14.0 X10^3/uL (3.6-10.0) H 02/23/20 04:50 RBC 5.10 X10^6/uL (3.5-5.4) 02/23/20 04:50 Hgb 15.0 g/dL (12.0-16.0) D 02/23/20 04:50 Hct 46.1 % (36.0-47.0) 02/23/20 04:50 MCV 90.3 fL (80.0-100.0) 02/23/20 04:50 MCH 29.3 pg (27.0-34.0) 02/23/20 04:50 MCHC 32.5 g/dL (33.0-35.0) L 02/23/20 04:50 RDW 14.1 % (11.6-16.5) 02/23/20 04:50 Plt Count 174 X10^3/uL (150.0-450.0) 02/23/20 04:50 Plt Count Comment Adequate (ADEQUATE) 02/23/20 04:50 MPV 9.0 fL (7.4-11.0) 02/23/20 04:50 Neut % (Auto) 95.1 % (42.0-75.0) H 02/23/20 04:50 Lymph % (Auto) 2.0 % (21.0-51.0) L 02/23/20 04:50 [place] % (Auto) 2.1 % (0.0-13.0) 02/23/20 04:50 Eos % (Auto) 0.2 % (0.9-2.9) L 02/23/20 04:50 Baso % (Auto) 0.6 % (0.2-1.0) 02/23/20 04:50 Neut # (Auto) 13.3 x10^3/uL (2.2-4.8) H 02/23/20 04:50 Lymph # (Auto) 0.3 X10^3/uL (1.3-2.9) L 02/23/20 04:50 [place] # (Auto) 0.3 x10^3/uL (0.3-0.8) 02/23/20 04:50 Eos # (Auto) 0.0 x10^3/uL (0.0-0.2) 02/23/20 04:50 Baso # (Auto) 0.1 X10^3/uL (0.0-0.1) 02/23/20 04:50 Absolute Nucleated RBC 0.1 /100WBC 02/23/20 04:50 Total Counted 100 02/23/20 04:50 Neutrophils % (Manual) 92 % (39-76) H 02/23/20 04:50 Band Neutrophils % 2 % (0-10) 02/23/20 04:50 Lymphocytes % (Manual) 3 % (13-43) L 02/23/20 04:50 Monocytes % (Manual) 3 % (4-9) L 02/23/20 04:50 Plt Morphology Comment Normal (NORMAL) 02/23/20 04:50 RBC Morphology Normal (NORMAL) 02/23/20 04:50 D-Dimer 2.75 ug/ml (0.0-0.57) H* 02/22/20 04:55 Sample Site Lrad 02/23/20 05:05 ABG pH 7.500 (7.35-7.45) H 02/23/20 05:05 ABG pCO2 40.0 mmHg (35.0-45.0) 02/23/20 05:05 ABG pO2 71.0 mmHg (80.0-100.0) L 02/23/20 05:05 ABG HCO3 31.2 mmol/L (22-26) H* 02/23/20 05:05 ABG O2 Saturation 95.0 % (90-100) 02/23/20 05:05 ABG Base Excess 7.4 mmol/L (-2.0-2.0) H 02/23/20 05:05 Gage Test Pos 02/23/20 05:05 A-a Gradient 592.0 mmHg 02/23/20 05:05 FiO2 100.0 02/23/20 05:05 Blood Gas Comments [place] well-mtf 02/23/20 05:05 Sodium 138 mmol/L (136-145) 02/23/20 04:50 Corrected Sodium TNP 02/23/20 04:50 Potassium 5.0 mmol/L (3.5-5.1) 02/23/20 04:50 Chloride 103 mmol/L (98-107) 02/23/20 04:50 Carbon Dioxide 27.1 mmol/L (21-32) 02/23/20 04:50 BUN 30 mg/dL (7-18) H 02/23/20 04:50 Creatinine 0.57 mg/dL (0.55-1.02) 02/23/20 04:50 Est GFR (MDRD) Af Amer > 60 (>60) 02/23/20 04:50 Est GFR (MDRD) Non-Af > 60 (>60) 02/23/20 04:50 Glucose 110 mg/dL (65-99) H 02/23/20 04:50 Lactic Acid 1.6 mmol/L (0.4-2.0) 02/10/20 16:01 Calcium 8.5 mg/dL (8.5-10.1) 02/23/20 04:50 Corrected Calcium 10.3 mg/dL (8.5-10.1) H 02/23/20 04:50 Ferritin 682 ng/mL (8-252) H 02/11/20 04:20 Total Bilirubin 0.50 mg/dL (0.2-1.0) 02/23/20 04:50 AST 62 Units/L (15-37) H 02/23/20 04:50 ALT 31 Units/L (12-78) 02/23/20 04:50 Alkaline Phosphatase 502 Units/L (46-116) H 02/23/20 04:50 Creatine Kinase 52 Units/L (26-192) 02/10/20 16:01 CK-MB (CK-2) < 1.0 ng/mL (0-4.0) 02/10/20 16:01 CK/CKMB % Calc 1.9 % (<4) 02/10/20 16:01 Troponin I < 0.02 ng/mL (0-1.5) 02/10/20 23:00 C-Reactive Protein 54.90 mg/L (0-3.0) H 02/23/20 04:50 Total Protein 6.2 g/dL (6.4-8.2) L 02/23/20 04:50 Albumin 1.7 g/dL (3.4-5.0) L 02/23/20 04:50 Globulin 4.5 g/dL (2.5-4.5) 02/23/20 04:50 Albumin/Globulin Ratio 0.4 Ratio (1.1-2.1) L 02/23/20 04:50 Prealbumin 17.8 mg/dL (18-35.7) L 02/21/20 06:24 Specimen Type Catherized urine 02/15/20 10:30 Urine Color Yellow (YELLOW) 02/15/20 10:30 Urine Appearance Clear (CLEAR) 02/15/20 10:30 Urine pH 7.0 (5.0 - 8.0) 02/15/20 10:30 Ur Specific [place] 1.010 (1.000-1.030) 02/15/20 10:30 Urine Protein Negative (NEGATIVE) 02/15/20 10:30 Urine Glucose (UA) Negative (NEGATIVE) 02/15/20 10:30 Urine Ketones Negative (NEGATIVE) 02/15/20 10:30 Urine Occult Blood Negative (NEGATIVE) 02/15/20 10:30 Urine Nitrite Negative (NEGATIVE) 02/15/20 10:30 Urine Bilirubin Negative (NEGATIVE) 02/15/20 10:30 Urine Urobilinogen Normal (NORMAL) 02/15/20 10:30 Ur Leukocyte Esterase Negative (NEGATIVE) 02/15/20 10:30 SARS CoV-2 RNA Rapid GREGG Positive (NEGATIVE) A 02/11/20 02:40 Plan (1) Pneumonia due to COVID-19 virus: Status: Acute Plan: Remdesivir, Bronchodilators, Solumedrol, Levaquin, I/S, supplemental O2 (2) Hypoxia: Status: Acute
[2020-02-23] MEDS: MORPHINE SULFATE INJ 2 MG INJ IVP PRN ×3 (10:55→21:35)
--- NOTE | 2020-02-23 12:38 | US ---
HISTORYELEVATED LFT'S, COVID, HYPOXIA, +D-DIMER. Right upper quadrant pain.Study: Right upper quadrant abdominal ultrasoundComparison: None available.Technique: Multiple jordan scale and color flow Doppler images of the right upper quadrant were obtained.Findings:The liver is echogenic/fatty in appearance. No focal intraparenchymal mass or intrahepatic biliary ductal dilatation can be observed. The gallbladder is surgically absent. The common bile duct is unremarkable measuring 9 mm. [No pericholecystic fluid or gallbladder wall thickening can be observed]. The CBD measures within normal limits in the setting of a prior cholecystectomy and given the patient's age. The right kidney appears normal in size without focal parenchymal mass or nephrolithiasis. The right kidney measurers 9 x 5 cm. No hydronephrosis or perirenal fluid can be observed. The [pancreatic head and body are unremarkable. The pancreatic tail] is largely obscured by overlying bowel gas. No ascites or loculated fluid collection is seen.IMPRESSION:Echogenic/fatty appearing liver. Status post cholecystectomy. Patulous common bile duct, measuring 9 mm.No other right upper quadrant sonographic abnormalities observed. No ascites or focal fluid collection is evident.Electronically signed by: LEXI MACK III (Feb 23, 2020 12:35:00)
[2020-02-23] MEDS: CARDIZEM INJ 125 MG VIAL 125 MG in NS 100 ML IV 100 ML IV PRN ×2 (13:22→21:34)
[2020-02-23] MEDS: ATIVAN INJ 2 MG VIAL IVP PRN (14:24)
[2020-02-23] MEDS: PROCALAMINE 3 % 1,000 ML IV SCH (14:26)
[2020-02-23] MEDS ORDERED: LANOXIN INJ IVP ONE ×2 (15:49→17:47)
[2020-02-23] MEDS ORDERED: NS 100 ML IV 100 ML IV ONE (20:14)
[2020-02-23] MEDS ORDERED: CARDIZEM INJ 125 MG VIAL ONE (20:15)
[2020-02-23] MEDS: LEVAQUIN PREMIX IV 750 MG 750 MG/150 ML BAG IV SCH (21:35)
[2020-02-23] MEDS: NEURONTIN CAP 300 MG PO SCH (21:37)
[2020-02-23] MEDS: LOPRESSOR TAB 50 MG PO SCH (21:37)
[2020-02-23] MEDS: ELIQUIS PO SCH (21:37)
[2020-02-23] MEDS: COLACE CAP 100 MG PO SCH (21:37)
[2020-02-24] MEDS: MORPHINE SULFATE INJ 2 MG INJ IVP PRN ×4 (01:35→22:10)
[2020-02-24] MEDS: ASCORBIC ACID INJ MULTI-DOSE VIAL 1,500 MG in NS 50 ML IV 50 ML IV SCH ×4 (03:03→20:11)
[2020-02-24] MEDS ORDERED: NS 100 ML IV 100 ML IV ONE (03:33)
[2020-02-24] MEDS ORDERED: CARDIZEM INJ 125 MG VIAL ONE (03:33)
[2020-02-24] MEDS: CARDIZEM INJ 125 MG VIAL 125 MG in NS 100 ML IV 100 ML IV PRN (03:47)
[2020-02-24] MEDS: ATIVAN INJ 2 MG VIAL IVP PRN ×2 (03:48→20:20)
[2020-02-24 03:50] LABS: ABG ALLEN TEST POS; ABG BASE EXCESS 6.3 mmol/L (-2.0-2.0); ABG HCO3 30.6 mmol/L (22-26)
[2020-02-24 06:19] LABS: BASOPHILS % (AUTO) 0.3 % (0.2-1.0); EOSINOPHILS % (AUTO) 0.1 % (0.9-2.9); HEMATOCRIT 42.1 % (36.0-47.0); HEMOGLOBIN 13.9 g/dL (12.0-16.0); LYMPHOCYTES # (AUTO) 0.3 X10^3/uL (1.3-2.9); LYMPHOCYTES % (AUTO) 2.3 % (21.0-51.0); MEAN CORPUSCULAR HGB CONC 33.1 g/dL (33.0-35.0); MEAN CORPUSCULAR VOLUME 90.5 fL (80.0-100.0); MEAN PLATELET VOLUME 8.9 fL (7.4-11.0); MONOCYTES # (AUTO) 0.4 x10^3/uL (0.3-0.8); MONOCYTES % (AUTO) 3.3 % (0.0-13.0); NEUTROPHILS # (AUTO) 12.3 x10^3/uL (2.2-4.8); PLATELET COUNT 151 X10^3/uL (150.0-450.0); RED BLOOD COUNT 4.65 X10^6/uL (3.5-5.4); RED CELL DISTRIBUTION WIDTH 14.4 % (11.6-16.5); WHITE BLOOD COUNT 13.1 X10^3/uL (3.6-10.0)
[2020-02-24] MEDS: NS 1000 ML 1,000 ML IV SCH ×2 (06:29→10:43)
[2020-02-24] MEDS: SOLU-Medrol 125 MG VIAL IVP SCH ×3 (06:29→22:10)
[2020-02-24 07:06] LABS: ALANINE AMINOTRANSFERASE 35 Units/L (12-78); ALBUMIN 1.7 g/dL (3.4-5.0); ALKALINE PHOSPHATASE 396 Units/L (46-116); ASPARTATE AMINO TRANSFERASE 56 Units/L (15-37); BLOOD UREA NITROGEN 34 mg/dL (7-18); CALCIUM 8.7 mg/dL (8.5-10.1); CARBON DIOXIDE 26.9 mmol/L (21-32); CHLORIDE 105 mmol/L (98-107); COR CA(FOR HYPOALB) 10.5 mg/dL (8.5-10.1); COR NA(FOR HYPERGLY) 139 mmol/L (136-145); CREATININE 0.57 mg/dL (0.55-1.02); SODIUM 138 mmol/L (136-145); TOTAL PROTEIN 5.9 g/dL (6.4-8.2); eGFR NON BLACK RACES > 60 (>60)
[2020-02-24 07:26] LABS: PLATELET MORPHOLOGY COMMENT NORMAL (NORMAL)
[2020-02-24] MEDS: ROBITUSSIN DM PO SCH ×4 (08:01→20:11)
[2020-02-24] MEDS: ELIQUIS PO SCH ×2 (08:05→20:12)
[2020-02-24] MEDS: LOPRESSOR TAB 50 MG PO SCH ×2 (08:09→20:12)
[2020-02-24] MEDS: MILK OF MAGNESIA PO SCH (08:09)
[2020-02-24] MEDS: LIPITOR TAB 40 MG PO SCH (08:09)
[2020-02-24] MEDS: PEPCID TAB 20 MG PO SCH ×2 (08:10→20:12)
[2020-02-24] MEDS: SYNTHROID 50 mcg TAB PO SCH (08:11)
[2020-02-24] MEDS: PROTONIX TAB 40 MG PO SCH ×2 (08:11→20:11)
[2020-02-24] MEDS: VITAMIN D3 125 mcg (5,000 UNITS) PO SCH (08:12)
[2020-02-24] MEDS: VITAMIN A PO SCH (08:12)
[2020-02-24] MEDS: ZINC SULFATE PO SCH ×2 (08:12→20:11)
[2020-02-24] MEDS: VSL#3 PO SCH (08:12)
--- NOTE | 2020-02-24 09:02 | RAD ---
HISTORYCOVID, PNEUMONIASTUDYCHEST, 1 [id number]/09/2021.TECHNIQUEAP view of the chestFINDINGSCardiac and mediastinal contours are within normal limits. No significant change in bilateral airspace and interstitial opacities. No definite pleural effusion or pneumothorax. Pneumomediastinum appears slightly improved.IMPRESSIONAirspace disease appears similar. Pneumomediastinum appears slightly improved.Electronically signed by: Alek Dow (Feb 24, 2020 09:01:03)
[2020-02-24] MEDS: CARDIZEM TAB 30 MG PLAIN PO SCH ×3 (09:25→20:12)
[2020-02-24] MEDS: DUONEB 0.5 MG/3 MG (3 mL) NEB SCH ×4 (09:30→21:00)
--- NOTE | 2020-02-24 10:34 | PCM.PROG ---
Progress Note Progress Note for Day of Date of Exam: 02/24/20 Subjective Subjective: Pt is a 74 year old female past medical history Multiple Sclerosis, Hypothyroidism, admitted for COVID-19 pneumonia (positive on 02/10). This morning patient's breathing has remained stable while requiring BiPAP support with FiO2 at 100%. Yesterday she continued to have Atrial fibrillation with RVR she was started on a cardizem gtt and was at max dose of 15mg/hr. She continued to have uncontrolled rate of 130s to 140s. She was given 2 doses of IV Digoxin 250mcg and rate converted. Labs/imaging: Wbc 13.1, Hgb 13.9, Plt 151, Na 138, K 5.1, Cr 0.57, Glucose 136. AST: 56, ALT 35, AlP 396, CRP 54>20, ABG was obtained that revealed: PH 7.47, PC02 42, P02 75, HC03 30, 02 SAT 96%, FI02 100% on BiPAP, U/S liver: Echogenic/fatty appearing liver. Status post cholecystectomy. CXR: Airspace di sease appears similar. Pneumomediastinum appears slightly improved. Her hospital/ treatment course includes: Remdesivir(completed course), Solumedrol 80mg q8h, Bronchodilators, Antibiotics: Levaquin(completed course), IVF NS@75ml/h, Eliquis 5mg BID, immune supporting supplements, Procal nutrition, s upplemental O2, I/S, Respiratory therapy consult, Pneumonia protocol. Pt is currently on BiPAP support with FiO2 100% with O2 sats in the upper 90s. Will attempt to wean as tolerated. Start PO cardizem 30mg q6h and start wean off cardizem gtt. Will monitor closely and follow up labs/imaging in the morning. Critical care time spent 30-74 minutes in clinical assessment, reviewing labs/imaging, decision making, and documentation. Past Medical Family Social History Past Med/Fam/Surg Hx: No changes since H&P Allergies: Allergies bacitracin [From Neosporin ([id number])] Allergy (Verified 02/10/20 17:21) cephalexin [From Keflex] Allergy (Verified 02/10/20 17:21) neomycin [From Neosporin ([id number])] Allergy (Verified 02/10/20 17:21) ofloxacin [From Floxin] Allergy (Verified 02/10/20 17:21) polymyxin B [From Neosporin ([id number])] Allergy (Verified 02/10/20 17:21) Review of Systems ROS: No change since H&P Vital Signs and I&O's Vital Signs: Temperature 98 F Pulse Rate [Right Radial] 72 Pulse Rate 84 Respiratory Rate 36 Blood Pressure [Left Arm] 138/68 Blood Pressure 118/82 O2 Sat by Pulse Oximetry 96 Intake and Output: Intake & Output 02/21/20 02/22/20 02/23/20 02/24/20 23:59 23:59 23:59 23:59 Intake Total 1781 / 1781 2145 / 2145 2976 / 2976 1037 / 1037 Output Total 475 / 475 1125 / 1125 900 / 900 300 / 300 Balance 1306 / 1306 1020 / 1020 2076 / 2076 737 / 737 Physical Exam Oriented: Normal Eyes: Normal Ear: Normal Nose: Normal Throat: Normal Respiratory: Diminished Cardiovascular: Normal and Irregular : Normal Auscultation: Bowel Sounds: Normal Tenderness: Normal Skin: Normal Musculoskeletal: Normal Psychiatric: Normal Mood Description: Calm and Appropriate Affect: Normal Speech Pattern: Clear and Appropriate Laboratory and Diagnostics Result Diagrams: 02/24/20 04:50 02/24/20 04:50 Labs: 02/10/20 16:05 Blood Blood Culture - Final 02/10/20 16:01 Blood Blood Culture - Final Laboratory WBC 13.1 X10^3/uL (3.6-10.0) H 02/24/20 04:50 RBC 4.65 X10^6/uL (3.5-5.4) 02/24/20 04:50 Hgb 13.9 g/dL (12.0-16.0) 02/24/20 04:50 Hct 42.1 % (36.0-47.0) 02/24/20 04:50 MCV 90.5 fL (80.0-100.0) 02/24/20 04:50 MCH 30.0 pg (27.0-34.0) 02/24/20 04:50 MCHC 33.1 g/dL (33.0-35.0) 02/24/20 04:50 RDW 14.4 % (11.6-16.5) 02/24/20 04:50 Plt Count 151 X10^3/uL (150.0-450.0) 02/24/20 04:50 Plt Count Comment Adequate (ADEQUATE) 02/24/20 04:50 MPV 8.9 fL (7.4-11.0) 02/24/20 04:50 Neut % (Auto) 94.0 % (42.0-75.0) H 02/24/20 04:50 Lymph % (Auto) 2.3 % (21.0-51.0) L 02/24/20 04:50 [place] % (Auto) 3.3 % (0.0-13.0) 02/24/20 04:50 Eos % (Auto) 0.1 % (0.9-2.9) L 02/24/20 04:50 Baso % (Auto) 0.3 % (0.2-1.0) 02/24/20 04:50 Neut # (Auto) 12.3 x10^3/uL (2.2-4.8) H 02/24/20 04:50 Lymph # (Auto) 0.3 X10^3/uL (1.3-2.9) L 02/24/20 04:50 [place] # (Auto) 0.4 x10^3/uL (0.3-0.8) 02/24/20 04:50 Eos # (Auto) 0.0 x10^3/uL (0.0-0.2) 02/24/20 04:50 Baso # (Auto) 0.0 X10^3/uL (0.0-0.1) 02/24/20 04:50 Absolute Nucleated RBC 0.0 /100WBC 02/24/20 04:50 Total Counted 100 02/24/20 04:50 Neutrophils % (Manual) 98 % (39-76) H 02/24/20 04:50 Band Neutrophils % 2 % (0-10) 02/23/20 04:50 Lymphocytes % (Manual) Not Reportable 02/24/20 04:50 Monocytes % (Manual) 2 % (4-9) L 02/24/20 04:50 Plt Morphology Comment Normal (NORMAL) 02/24/20 04:50 RBC Morphology Normal (NORMAL) 02/24/20 04:50 D-Dimer 2.75 ug/ml (0.0-0.57) H* 02/22/20 04:55 Sample Site Lrad 02/24/20 03:44 ABG pH 7.470 (7.35-7.45) H 02/24/20 03:44 ABG pCO2 42.0 mmHg (35.0-45.0) 02/24/20 03:44 ABG pO2 75.0 mmHg (80.0-100.0) L 02/24/20 03:44 ABG HCO3 30.6 mmol/L (22-26) H* 02/24/20 03:44 ABG O2 Saturation 96.0 % (90-100) 02/24/20 03:44 ABG Base Excess 6.3 mmol/L (-2.0-2.0) H 02/24/20 03:44 Gage Test Pos 02/24/20 03:44 A-a Gradient 586.0 mmHg 02/24/20 03:44 FiO2 100.0 02/24/20 03:44 Blood Gas Comments [place] well 02/24/20 03:44 Sodium 138 mmol/L (136-145) 02/24/20 04:50 Corrected Sodium 139 mmol/L (136-145) 02/24/20 04:50 Potassium 5.1 mmol/L (3.5-5.1) 02/24/20 04:50 Chloride 105 mmol/L (98-107) 02/24/20 04:50 Carbon Dioxide 26.9 mmol/L (21-32) 02/24/20 04:50 BUN 34 mg/dL (7-18) H 02/24/20 04:50 Creatinine 0.57 mg/dL (0.55-1.02) 02/24/20 04:50 Est GFR (MDRD) Af Amer > 60 (>60) 02/24/20 04:50 Est GFR (MDRD) Non-Af > 60 (>60) 02/24/20 04:50 Glucose 136 mg/dL (65-99) H 02/24/20 04:50 Lactic Acid 1.6 mmol/L (0.4-2.0) 02/10/20 16:01 Calcium 8.7 mg/dL (8.5-10.1) 02/24/20 04:50 Corrected Calcium 10.5 mg/dL (8.5-10.1) H 02/24/20 04:50 Ferritin 682 ng/mL (8-252) H 02/11/20 04:20 Total Bilirubin 0.40 mg/dL (0.2-1.0) 02/24/20 04:50 AST 56 Units/L (15-37) H 02/24/20 04:50 ALT 35 Units/L (12-78) 02/24/20 04:50 Alkaline Phosphatase 396 Units/L (46-116) H 02/24/20 04:50 Creatine Kinase 52 Units/L (26-192) 02/10/20 16:01 CK-MB (CK-2) < 1.0 ng/mL (0-4.0) 02/10/20 16:01 CK/CKMB % Calc 1.9 % (<4) 02/10/20 16:01 Troponin I 0.08 ng/mL (0-1.5) 02/23/20 11:18 C-Reactive Protein 20.90 mg/L (0-3.0) H 02/24/20 04:50 Total Protein 5.9 g/dL (6.4-8.2) L 02/24/20 04:50 Albumin 1.7 g/dL (3.4-5.0) L 02/24/20 04:50 Globulin 4.2 g/dL (2.5-4.5) 02/24/20 04:50 Albumin/Globulin Ratio 0.4 Ratio (1.1-2.1) L 02/24/20 04:50 Prealbumin 17.8 mg/dL (18-35.7) L 02/21/20 06:24 Specimen Type Catherized urine 02/15/20 10:30 Urine Color Yellow (YELLOW) 02/15/20 10:30 Urine Appearance Clear (CLEAR) 02/15/20 10:30 Urine pH 7.0 (5.0 - 8.0) 02/15/20 10:30 Ur Specific [place] 1.010 (1.000-1.030) 02/15/20 10:30 Urine Protein Negative (NEGATIVE) 02/15/20 10:30 Urine Glucose (UA) Negative (NEGATIVE) 02/15/20 10:30 Urine Ketones Negative (NEGATIVE) 02/15/20 10:30 Urine Occult Blood Negative (NEGATIVE) 02/15/20 10:30 Urine Nitrite Negative (NEGATIVE) 02/15/20 10:30 Urine Bilirubin Negative (NEGATIVE) 02/15/20 10:30 Urine Urobilinogen Normal (NORMAL) 02/15/20 10:30 Ur Leukocyte Esterase Negative (NEGATIVE) 02/15/20 10:30 SARS CoV-2 RNA Rapid GREGG Positive (NEGATIVE) A 02/11/20 02:40 Plan (1) Pneumonia due to COVID-19 virus: Status: Acute Plan: Remdesivir, Bronchodilators, Solumedrol, Levaquin, I/S, supplemental O2 (2) Hypoxia: Status: Acute
[2020-02-24] MEDS: PROCALAMINE 3 % 1,000 ML IV SCH (14:52)
[2020-02-24] MEDS: NEURONTIN CAP 300 MG PO SCH (20:11)
[2020-02-24] MEDS: COLACE CAP 100 MG PO SCH (20:12)
[2020-02-24] MEDS: LEVAQUIN PREMIX IV 750 MG 750 MG/150 ML BAG IV SCH (22:10)
[2020-02-25] MEDS: NS 1000 ML 1,000 ML IV SCH ×4 (01:22→17:34)
[2020-02-25] MEDS: PROCALAMINE 3 % 1,000 ML IV SCH ×2 (02:45→14:35)
[2020-02-25] MEDS: ASCORBIC ACID INJ MULTI-DOSE VIAL 1,500 MG in NS 50 ML IV 50 ML IV SCH ×4 (02:45→22:30)
[2020-02-25] MEDS: CARDIZEM TAB 30 MG PLAIN PO SCH ×3 (02:45→16:08)
[2020-02-25 04:42] LABS: ABG ALLEN TEST POS; ABG BASE EXCESS 5.1 mmol/L (-2.0-2.0); ABG HCO3 29.9 mmol/L (22-26)
[2020-02-25] MEDS: SOLU-Medrol 125 MG VIAL IVP SCH (06:11)
[2020-02-25 06:14] LABS: BASOPHILS % (AUTO) 0 % (0.2-1.0); HEMATOCRIT 38.5 % (36.0-47.0); HEMOGLOBIN 12.7 g/dL (12.0-16.0); LYMPHOCYTES # (AUTO) 0.3 X10^3/uL (1.3-2.9); LYMPHOCYTES % (AUTO) 2.1 % (21.0-51.0); MEAN CORPUSCULAR HEMOGLOBIN 30.1 pg (27.0-34.0); MEAN CORPUSCULAR VOLUME 91.1 fL (80.0-100.0); MONOCYTES # (AUTO) 0.5 x10^3/uL (0.3-0.8); MONOCYTES % (AUTO) 3.9 % (0.0-13.0); NEUTROPHILS # (AUTO) 11.6 x10^3/uL (2.2-4.8); PLATELET COUNT 148 X10^3/uL (150.0-450.0); RED BLOOD COUNT 4.22 X10^6/uL (3.5-5.4); WHITE BLOOD COUNT 12.4 X10^3/uL (3.6-10.0)
[2020-02-25 06:21] LABS: ALANINE AMINOTRANSFERASE 30 Units/L (12-78); ALBUMIN 1.6 g/dL (3.4-5.0); ALKALINE PHOSPHATASE 323 Units/L (46-116); ASPARTATE AMINO TRANSFERASE 44 Units/L (15-37); BLOOD UREA NITROGEN 33 mg/dL (7-18); CALCIUM 8.2 mg/dL (8.5-10.1); CARBON DIOXIDE 28.6 mmol/L (21-32); CHLORIDE 105 mmol/L (98-107); COR CA(FOR HYPOALB) 10.1 mg/dL (8.5-10.1); COR NA(FOR HYPERGLY) 139 mmol/L (136-145); CREATININE 0.52 mg/dL (0.55-1.02); SODIUM 138 mmol/L (136-145); TOTAL PROTEIN 5.3 g/dL (6.4-8.2); eGFR NON BLACK RACES > 60 (>60)
[2020-02-25 07:14] LABS: PLATELET MORPHOLOGY COMMENT NORMAL (NORMAL)
[2020-02-25] MEDS: ELIQUIS PO SCH (10:10)
[2020-02-25] MEDS: LIPITOR TAB 40 MG PO SCH (10:11)
[2020-02-25] MEDS: LOPRESSOR TAB 50 MG PO SCH (10:11)
[2020-02-25] MEDS: PEPCID TAB 20 MG PO SCH (10:12)
[2020-02-25] MEDS: MILK OF MAGNESIA PO SCH (10:12)
[2020-02-25] MEDS: PROTONIX TAB 40 MG PO SCH (10:13)
[2020-02-25] MEDS: ROBITUSSIN DM PO SCH ×3 (10:13→17:33)
[2020-02-25] MEDS: SYNTHROID 50 mcg TAB PO SCH (10:13)
[2020-02-25] MEDS: VITAMIN A PO SCH (10:14)
[2020-02-25] MEDS: VITAMIN D3 125 mcg (5,000 UNITS) PO SCH (10:14)
[2020-02-25] MEDS: VSL#3 PO SCH (10:15)
[2020-02-25] MEDS: ZINC SULFATE PO SCH (10:15)
--- NOTE | 2020-02-25 10:15 | PCM.PROG ---
Progress Note Progress Note for Day of Date of Exam: 02/25/20 Subjective Subjective: Pt is a 74 year old female past medical history Multiple Sclerosis, Hypothyroidism, admitted for COVID-19 pneumonia (positive on 02/10) and Acute Respiratory Failure. This morning patient remains on BiPAP support with FiO2 at 100%. She was able to be weaned off the cardizem gtt and has been rate controlled since. Labs/imaging: Wbc 12.4, Hgb 12.7, Plt 148, Na 138, K 4.7, Cr 0.52, Glucose 121. AST: 44, ALT 30, AlP 323, CRP 20>7.1, ABG was obtained that revealed: PH 7.44, PC02 44, P02 69, HC03 29, 02 SAT 94%, FI02 100% on BiPAP, CXR: Airspace disease appears similar. Pneumomediastinum appears slightly improved. Her hospital/ treatment course includes: Remdesivir(completed course), Solumedrol 80mg q8h, Bronchodilators, Antibiotics: Levaquin(completed course), IVF NS@75ml/h, Eliquis 5mg BID, immune supporting supplements, Procal nutrition, supplemental O2, I/S, Respiratory therapy consult, Pneumonia protocol. Pt is currently on BiPAP support with FiO2 100% with O2 sats in the upper 90s. Wean as tolerated. Continue cardizem 30mg q6h and can change to extended release tomorrow. Decrease IV solumedrol to 40mg q8h. Will monitor closely and follow up labs/imaging in the morning. Critical care time spent 30-74 minutes in clinical assessment, reviewing labs/imaging, decision making, and documentation. Past Medical Family Social History Past Med/Fam/Surg Hx: No changes since H&P Allergies: Allergies bacitracin [From Neosporin ([id number])] Allergy (Verified 02/10/20 17:21) cephalexin [From Keflex] Allergy (Verified 02/10/20 17:21) neomycin [From Neosporin ([id number])] Allergy (Verified 02/10/20 17:21) ofloxacin [From Floxin] Allergy (Verified 02/10/20 17:21) polymyxin B [From Neosporin ([id number])] Allergy (Verified 02/10/20 17:21) Review of Systems ROS: No change since H&P Vital Signs and I&O's Vital Signs: Temperature 98.3 F Pulse Rate [Right Radial] 71 Pulse Rate 84 Respiratory Rate 13 Blood Pressure [Left Arm] 136/63 Blood Pressure 118/82 O2 Sat by Pulse Oximetry 96 Intake and Output: Intake & Output 02/22/20 02/23/20 02/24/20 02/25/20 23:59 23:59 23:59 23:59 Intake Total 2145 / 2145 2976 / 2976 3733 / 3733 1553 / 1553 Output Total 1125 / 1125 900 / 900 1000 / 1000 350 / 350 Balance 1020 / 1020 2076 / 2076 2733 / 2733 1203 / 1203 Physical Exam Oriented: Normal Eyes: Normal Ear: Normal Nose: Normal Throat: Normal Respiratory: Diminished Cardiovascular: Normal and Irregular : Normal Auscultation: Bowel Sounds: Normal Tenderness: Normal Skin: Normal Musculoskeletal: Normal Psychiatric: Normal Mood Description: Calm and Appropriate Affect: Normal Speech Pattern: Clear and Appropriate Laboratory and Diagnostics Result Diagrams: 02/25/20 04:30 02/25/20 04:30 Labs: 02/10/20 16:05 Blood Blood Culture - Final 02/10/20 16:01 Blood Blood Culture - Final Laboratory WBC 12.4 X10^3/uL (3.6-10.0) H 02/25/20 04:30 RBC 4.22 X10^6/uL (3.5-5.4) 02/25/20 04:30 Hgb 12.7 g/dL (12.0-16.0) 02/25/20 04:30 Hct 38.5 % (36.0-47.0) 02/25/20 04:30 MCV 91.1 fL (80.0-100.0) 02/25/20 04:30 MCH 30.1 pg (27.0-34.0) 02/25/20 04:30 MCHC 33.0 g/dL (33.0-35.0) 02/25/20 04:30 RDW 14.0 % (11.6-16.5) 02/25/20 04:30 Plt Count 148 X10^3/uL (150.0-450.0) L 02/25/20 04:30 Plt Count Comment Adequate (ADEQUATE) 02/25/20 04:30 MPV 9.0 fL (7.4-11.0) 02/25/20 04:30 Neut % (Auto) 94.0 % (42.0-75.0) H 02/25/20 04:30 Lymph % (Auto) 2.1 % (21.0-51.0) L 02/25/20 04:30 [place] % (Auto) 3.9 % (0.0-13.0) 02/25/20 04:30 Eos % (Auto) 0.0 % (0.9-2.9) L 02/25/20 04:30 Baso % (Auto) 0 % (0.2-1.0) L 02/25/20 04:30 Neut # (Auto) 11.6 x10^3/uL (2.2-4.8) H 02/25/20 04:30 Lymph # (Auto) 0.3 X10^3/uL (1.3-2.9) L 02/25/20 04:30 [place] # (Auto) 0.5 x10^3/uL (0.3-0.8) 02/25/20 04:30 Eos # (Auto) 0.0 x10^3/uL (0.0-0.2) 02/25/20 04:30 Baso # (Auto) 0.0 X10^3/uL (0.0-0.1) 02/25/20 04:30 Absolute Nucleated RBC 0.0 /100WBC 02/25/20 04:30 Total Counted 100 02/25/20 04:30 Neutrophils % (Manual) 99 % (39-76) H 02/25/20 04:30 Band Neutrophils % 2 % (0-10) 02/23/20 04:50 Lymphocytes % (Manual) 1 % (13-43) L 02/25/20 04:30 Monocytes % (Manual) 2 % (4-9) L 02/24/20 04:50 Plt Morphology Comment Normal (NORMAL) 02/25/20 04:30 RBC Morphology Normal (NORMAL) 02/25/20 04:30 D-Dimer 2.75 ug/ml (0.0-0.57) H* 02/22/20 04:55 Sample Site Rr 02/25/20 04:35 ABG pH 7.440 (7.35-7.45) 02/25/20 04:35 ABG pCO2 44.0 mmHg (35.0-45.0) 02/25/20 04:35 ABG pO2 69.0 mmHg (80.0-100.0) L 02/25/20 04:35 ABG HCO3 29.9 mmol/L (22-26) H 02/25/20 04:35 ABG O2 Saturation 94.0 % (90-100) 02/25/20 04:35 ABG Base Excess 5.1 mmol/L (-2.0-2.0) H 02/25/20 04:35 Gage Test Pos 02/25/20 04:35 A-a Gradient 589.0 mmHg 02/25/20 04:35 FiO2 100.0 02/25/20 04:35 Blood Gas Comments [place] well ae 02/25/20 04:35 Sodium 138 mmol/L (136-145) 02/25/20 04:30 Corrected Sodium 139 mmol/L (136-145) 02/25/20 04:30 Potassium 4.7 mmol/L (3.5-5.1) 02/25/20 04:30 Chloride 105 mmol/L (98-107) 02/25/20 04:30 Carbon Dioxide 28.6 mmol/L (21-32) 02/25/20 04:30 BUN 33 mg/dL (7-18) H 02/25/20 04:30 Creatinine 0.52 mg/dL (0.55-1.02) L 02/25/20 04:30 Est GFR (MDRD) Af Amer > 60 (>60) 02/25/20 04:30 Est GFR (MDRD) Non-Af > 60 (>60) 02/25/20 04:30 Glucose 121 mg/dL (65-99) H 02/25/20 04:30 Lactic Acid 1.6 mmol/L (0.4-2.0) 02/10/20 16:01 Calcium 8.2 mg/dL (8.5-10.1) L 02/25/20 04:30 Corrected Calcium 10.1 mg/dL (8.5-10.1) 02/25/20 04:30 Ferritin 682 ng/mL (8-252) H 02/11/20 04:20 Total Bilirubin 0.30 mg/dL (0.2-1.0) 02/25/20 04:30 AST 44 Units/L (15-37) H 02/25/20 04:30 ALT 30 Units/L (12-78) 02/25/20 04:30 Alkaline Phosphatase 323 Units/L (46-116) H 02/25/20 04:30 Creatine Kinase 52 Units/L (26-192) 02/10/20 16:01 CK-MB (CK-2) < 1.0 ng/mL (0-4.0) 02/10/20 16:01 CK/CKMB % Calc 1.9 % (<4) 02/10/20 16:01 Troponin I 0.08 ng/mL (0-1.5) 02/23/20 11:18 C-Reactive Protein 7.10 mg/L (0-3.0) H 02/25/20 04:30 Total Protein 5.3 g/dL (6.4-8.2) L 02/25/20 04:30 Albumin 1.6 g/dL (3.4-5.0) L 02/25/20 04:30 Globulin 3.7 g/dL (2.5-4.5) 02/25/20 04:30 Albumin/Globulin Ratio 0.4 Ratio (1.1-2.1) L 02/25/20 04:30 Prealbumin 17.8 mg/dL (18-35.7) L 02/21/20 06:24 Specimen Type Catherized urine 02/15/20 10:30 Urine Color Yellow (YELLOW) 02/15/20 10:30 Urine Appearance Clear (CLEAR) 02/15/20 10:30 Urine pH 7.0 (5.0 - 8.0) 02/15/20 10:30 Ur Specific [place] 1.010 (1.000-1.030) 02/15/20 10:30 Urine Protein Negative (NEGATIVE) 02/15/20 10:30 Urine Glucose (UA) Negative (NEGATIVE) 02/15/20 10:30 Urine Ketones Negative (NEGATIVE) 02/15/20 10:30 Urine Occult Blood Negative (NEGATIVE) 02/15/20 10:30 Urine Nitrite Negative (NEGATIVE) 02/15/20 10:30 Urine Bilirubin Negative (NEGATIVE) 02/15/20 10:30 Urine Urobilinogen Normal (NORMAL) 02/15/20 10:30 Ur Leukocyte Esterase Negative (NEGATIVE) 02/15/20 10:30 SARS CoV-2 RNA Rapid GREGG Positive (NEGATIVE) A 02/11/20 02:40 Plan (1) Pneumonia due to COVID-19 virus: Status: Acute Plan: Remdesivir, Bronchodilators, Solumedrol, Levaquin, I/S, supplemental O2 (2) Hypoxia: Status: Acute (3) Acute respiratory failure: Status: Acute
[2020-02-25] MEDS ORDERED: LACRI-LUBE S.O.P. ONE (10:32)
[2020-02-25] MEDS: MORPHINE SULFATE INJ 2 MG INJ IVP PRN ×2 (10:36→17:35)
[2020-02-25] MEDS: LACRI-LUBE S.O.P. AFFEYE PRN (12:39)
[2020-02-25] MEDS: ATIVAN INJ 2 MG VIAL IVP PRN (12:40)
[2020-02-25] MEDS: SOLU-Medrol 40 MG VIAL IVP SCH ×2 (14:58→22:30)
[2020-02-25] MEDS: DUONEB 0.5 MG/3 MG (3 mL) NEB SCH ×3 (15:13→20:00)
[2020-02-25] MEDS: LEVAQUIN PREMIX IV 750 MG 750 MG/150 ML BAG IV SCH (23:00)
[2020-02-26] MEDS: ZOFRAN INJ 4 MG VIAL IVP PRN ×3 (00:33→21:00)
[2020-02-26] MEDS: MORPHINE SULFATE INJ 2 MG INJ IVP PRN ×2 (00:33→06:05)
[2020-02-26] MEDS: ATIVAN INJ 2 MG VIAL IVP PRN (00:36)
[2020-02-26] MEDS: ELIQUIS PO SCH ×3 (01:06→23:00)
[2020-02-26] MEDS: CARDIZEM TAB 30 MG PLAIN PO SCH ×2 (01:06→04:55)
[2020-02-26] MEDS: COLACE CAP 100 MG PO SCH ×2 (01:06→23:00)
[2020-02-26] MEDS: LOPRESSOR TAB 50 MG PO SCH ×3 (01:07→23:00)
[2020-02-26] MEDS: NEURONTIN CAP 300 MG PO SCH ×2 (01:08→23:00)
[2020-02-26] MEDS: PEPCID TAB 20 MG PO SCH (01:08)
[2020-02-26] MEDS: ZINC SULFATE PO SCH ×3 (01:09→23:00)
[2020-02-26] MEDS: ROBITUSSIN DM PO SCH ×4 (01:09→18:56)
[2020-02-26] MEDS: PROTONIX TAB 40 MG PO SCH (01:09)
[2020-02-26] MEDS: NS 1000 ML 1,000 ML IV SCH ×2 (01:11→14:04)
[2020-02-26] MEDS: ASCORBIC ACID INJ MULTI-DOSE VIAL 1,500 MG in NS 50 ML IV 50 ML IV SCH ×4 (04:54→23:00)
[2020-02-26] MEDS: SOLU-Medrol 40 MG VIAL IVP SCH ×3 (06:03→23:00)
[2020-02-26 06:12] LABS: BASOPHILS % (AUTO) 0.2 % (0.2-1.0); HEMATOCRIT 40.3 % (36.0-47.0); HEMOGLOBIN 13.2 g/dL (12.0-16.0); LYMPHOCYTES # (AUTO) 0.2 X10^3/uL (1.3-2.9); LYMPHOCYTES % (AUTO) 1.6 % (21.0-51.0); MEAN CORPUSCULAR HEMOGLOBIN 29.7 pg (27.0-34.0); MEAN CORPUSCULAR HGB CONC 32.7 g/dL (33.0-35.0); MEAN CORPUSCULAR VOLUME 90.9 fL (80.0-100.0); MEAN PLATELET VOLUME 8.7 fL (7.4-11.0); MONOCYTES # (AUTO) 0.4 x10^3/uL (0.3-0.8); MONOCYTES % (AUTO) 3.1 % (0.0-13.0); NEUTROPHILS # (AUTO) 11.2 x10^3/uL (2.2-4.8); NEUTROPHILS % (AUTO) 95.1 % (42.0-75.0); PLATELET COUNT 152 X10^3/uL (150.0-450.0); RED BLOOD COUNT 4.43 X10^6/uL (3.5-5.4); RED CELL DISTRIBUTION WIDTH 14.4 % (11.6-16.5); WHITE BLOOD COUNT 11.8 X10^3/uL (3.6-10.0)
[2020-02-26 06:14] LABS: ABG BASE EXCESS 6.3 mmol/L (-2.0-2.0)
[2020-02-26 06:15] LABS: ABG ALLEN TEST POS; ABG HCO3 32.7 mmol/L (22-26)
[2020-02-26 06:49] LABS: ALANINE AMINOTRANSFERASE 44 Units/L (12-78); ALBUMIN 1.7 g/dL (3.4-5.0); ALKALINE PHOSPHATASE 325 Units/L (46-116); ASPARTATE AMINO TRANSFERASE 46 Units/L (15-37); BLOOD UREA NITROGEN 31 mg/dL (7-18); CALCIUM 8.5 mg/dL (8.5-10.1); CARBON DIOXIDE 29.4 mmol/L (21-32); CHLORIDE 105 mmol/L (98-107); COR CA(FOR HYPOALB) 10.3 mg/dL (8.5-10.1); COR NA(FOR HYPERGLY) 140 mmol/L (136-145); CREATININE 0.49 mg/dL (0.55-1.02); SODIUM 139 mmol/L (136-145); TOTAL PROTEIN 5.6 g/dL (6.4-8.2); eGFR NON BLACK RACES > 60 (>60)
--- NOTE | 2020-02-26 07:28 | RAD ---
Chest AP portableIndication: COVID-19 pneumoniaCOMPARISONJan2020FINDINGSExtensive pneumomediastinum is slightly more pronounced on the prior. There is no large pneumothorax. Gas is seen in the soft tissues near the neck, partially visualized. Heart size enlarged. Dense bilateral pulmonary opacities have worsened from the prior. Monitor leads obscure detail.IMPRESSION1. Worsening pneumomediastinum.2. Worsening bilateral pulmonary opacities of viral pneumonitis/ARDS.Electronically signed by: ISAC HEWITT (Feb 26, 2020 07:26:51)
[2020-02-26 07:32] LABS: PLATELET MORPHOLOGY COMMENT NORMAL (NORMAL)
[2020-02-26] MEDS: DUONEB 0.5 MG/3 MG (3 mL) NEB SCH ×4 (09:46→21:27)
[2020-02-26] MEDS: VITAMIN A PO SCH (09:50)
[2020-02-26] MEDS: MILK OF MAGNESIA PO SCH (09:50)
[2020-02-26] MEDS: SYNTHROID 50 mcg TAB PO SCH (09:50)
[2020-02-26] MEDS: LIPITOR TAB 40 MG PO SCH (09:50)
[2020-02-26] MEDS: VITAMIN D3 125 mcg (5,000 UNITS) PO SCH (09:50)
[2020-02-26] MEDS: VSL#3 PO SCH (09:50)
[2020-02-26] MEDS: PROTONIX INJ 40 MG VIAL IVP SCH (09:51)
[2020-02-26] MEDS: CARDIZEM ER 60 MG 12-HR PO SCH ×2 (11:30→23:00)
--- NOTE | 2020-02-26 15:36 | PCM.PROG ---
Progress Note Progress Note for Day of Date of Exam: 02/27/20 Subjective Subjective: Pt is a 74 year old female past medical history Multiple Sclerosis, Hypothyroidism, admitted for COVID-19 pneumonia (positive on 02/10) and Acute Respiratory Failure. This morning patient remains on BiPAP support with FiO2 at 85%. She was changed from cardizem gtt to PO cardizem IR yesterday and well, rate controlled. Labs/imaging: Wbc 11.8, Hgb 13.2, Plt 152, Na 139, K 4.9, Cr 0.49, Glucose 159. AST: 46, ALT 44, AlP 325, CRP 7.8, ABG was obtained that revealed: PH 7.39, PC02 54, P02 63, HC03 32.7, 02 SAT 92%, FI02 100% on BiPAP, CXR: 1. Worsening pneumomediastinum. 2.Worsening bilateral pulmonary opacities of viral pneumonitis/ ARDS. Her hospital/ treatment course includes: Remdesiv ir(completed course), Solumedrol 80mg q8h, Bronchodilators, Antibiotics: Levaquin(completed course), IVF NS@75ml/h, Eliquis 5mg BID, immune supporting supplements, Procal nutrition, supplemental O2, I/S, Respiratory therapy consult, Pneumonia protocol. Pt is currently on BiPAP support with FiO2 85% with O2 sats in the mid to low 90s. Wean as tolerated. Will change cardizem to ER 60mg q12h. Increase IV solumedrol to 80mg q8h. Will monitor closely and follow up labs/imaging in the morning. Critical care time spent 30-74 minutes in clinical assessment, reviewing labs/imaging, decision making, and documentation. Past Medical Family Social History Past Med/Fam/Surg Hx: No changes since H&P Allergies: Allergies bacitracin [From Neosporin ([id number])] Allergy (Verified 02/10/20 17:21) cephalexin [From Keflex] Allergy (Verified 02/10/20 17:21) neomycin [From Neosporin ([id number])] Allergy (Verified 02/10/20 17:21) ofloxacin [From Floxin] Allergy (Verified 02/10/20 17:21) polymyxin B [From Neosporin ([id number])] Allergy (Verified 02/10/20 17:21) Review of Systems ROS: No change since H&P Vital Signs and I&O's Vital Signs: Temperature 97.8 F Pulse Rate [Right Radial] 91 Pulse Rate 86 Respiratory Rate 16 Blood Pressure [Left Arm] 156/73 Blood Pressure 134/85 O2 Sat by Pulse Oximetry 94 Intake and Output: Intake & Output 02/23/20 02/24/20 02/25/20 02/26/20 23:59 23:59 23:59 23:59 Intake Total 2976 / 2976 3733 / 3733 2695 / 2695 985 / 985 Output Total 900 / 900 1000 / 1000 1200 / 1200 400 / 400 Balance 2076 / 2076 2733 / 2733 1495 / 1495 585 / 585 Physical Exam Oriented: Normal Eyes: Normal Ear: Normal Nose: Normal Throat: Normal Respiratory: Diminished Cardiovascular: Normal and Irregular : Normal Auscultation: Bowel Sounds: Normal Tenderness: Normal Skin: Normal Musculoskeletal: Normal Psychiatric: Normal Mood Description: Calm and Appropriate Affect: Normal Speech Pattern: Clear Laboratory and Diagnostics Result Diagrams: 02/27/20 04:20 02/27/20 04:20 Labs: 02/10/20 16:05 Blood Blood Culture - Final 02/10/20 16:01 Blood Blood Culture - Final Laboratory WBC 11.8 X10^3/uL (3.6-10.0) H 02/26/20 04:35 RBC 4.43 X10^6/uL (3.5-5.4) 02/26/20 04:35 Hgb 13.2 g/dL (12.0-16.0) 02/26/20 04:35 Hct 40.3 % (36.0-47.0) 02/26/20 04:35 MCV 90.9 fL (80.0-100.0) 02/26/20 04:35 MCH 29.7 pg (27.0-34.0) 02/26/20 04:35 MCHC 32.7 g/dL (33.0-35.0) L 02/26/20 04:35 RDW 14.4 % (11.6-16.5) 02/26/20 04:35 Plt Count 152 X10^3/uL (150.0-450.0) 02/26/20 04:35 Plt Count Comment Adequate (ADEQUATE) 02/26/20 04:35 MPV 8.7 fL (7.4-11.0) 02/26/20 04:35 Neut % (Auto) 95.1 % (42.0-75.0) H 02/26/20 04:35 Lymph % (Auto) 1.6 % (21.0-51.0) L 02/26/20 04:35 [place] % (Auto) 3.1 % (0.0-13.0) 02/26/20 04:35 Eos % (Auto) 0.0 % (0.9-2.9) L 02/26/20 04:35 Baso % (Auto) 0.2 % (0.2-1.0) 02/26/20 04:35 Neut # (Auto) 11.2 x10^3/uL (2.2-4.8) H 02/26/20 04:35 Lymph # (Auto) 0.2 X10^3/uL (1.3-2.9) L 02/26/20 04:35 [place] # (Auto) 0.4 x10^3/uL (0.3-0.8) 02/26/20 04:35 Eos # (Auto) 0.0 x10^3/uL (0.0-0.2) 02/26/20 04:35 Baso # (Auto) 0.0 X10^3/uL (0.0-0.1) 02/26/20 04:35 Absolute Nucleated RBC 0.1 /100WBC 02/26/20 04:35 Total Counted 100 02/26/20 04:35 Neutrophils % (Manual) 96 % (39-76) H 02/26/20 04:35 Band Neutrophils % 2 % (0-10) 02/23/20 04:50 Lymphocytes % (Manual) 1 % (13-43) L 02/26/20 04:35 Monocytes % (Manual) 3 % (4-9) L 02/26/20 04:35 Plt Morphology Comment Normal (NORMAL) 02/26/20 04:35 RBC Morphology Normal (NORMAL) 02/26/20 04:35 D-Dimer 3.32 ug/ml (0.0-0.57) H* 02/26/20 04:35 Sample Site Lra 02/26/20 06:10 ABG pH 7.390 (7.35-7.45) 02/26/20 06:10 ABG pCO2 54.0 mmHg (35.0-45.0) H* 02/26/20 06:10 ABG pO2 63.0 mmHg (80.0-100.0) L 02/26/20 06:10 ABG HCO3 32.7 mmol/L (22-26) H* 02/26/20 06:10 ABG O2 Saturation 92.0 % (90-100) 02/26/20 06:10 ABG Base Excess 6.3 mmol/L (-2.0-2.0) H 02/26/20 06:10 Gage Test Pos 02/26/20 06:10 A-a Gradient 583.0 mmHg 02/26/20 06:10 FiO2 100.0 02/26/20 06:10 Blood Gas Comments Pt giorgi well eb 02/26/20 06:10 Sodium 139 mmol/L (136-145) 02/26/20 04:35 Corrected Sodium 140 mmol/L (136-145) 02/26/20 04:35 Potassium 4.9 mmol/L (3.5-5.1) 02/26/20 04:35 Chloride 105 mmol/L (98-107) 02/26/20 04:35 Carbon Dioxide 29.4 mmol/L (21-32) 02/26/20 04:35 BUN 31 mg/dL (7-18) H 02/26/20 04:35 Creatinine 0.49 mg/dL (0.55-1.02) L 02/26/20 04:35 Est GFR (MDRD) Af Amer > 60 (>60) 02/26/20 04:35 Est GFR (MDRD) Non-Af > 60 (>60) 02/26/20 04:35 Glucose 159 mg/dL (65-99) H 02/26/20 04:35 Lactic Acid 1.6 mmol/L (0.4-2.0) 02/10/20 16:01 Calcium 8.5 mg/dL (8.5-10.1) 02/26/20 04:35 Corrected Calcium 10.3 mg/dL (8.5-10.1) H 02/26/20 04:35 Ferritin 682 ng/mL (8-252) H 02/11/20 04:20 Total Bilirubin 0.30 mg/dL (0.2-1.0) 02/26/20 04:35 AST 46 Units/L (15-37) H 02/26/20 04:35 ALT 44 Units/L (12-78) 02/26/20 04:35 Alkaline Phosphatase 325 Units/L (46-116) H 02/26/20 04:35 Creatine Kinase 52 Units/L (26-192) 02/10/20 16:01 CK-MB (CK-2) < 1.0 ng/mL (0-4.0) 02/10/20 16:01 CK/CKMB % Calc 1.9 % (<4) 02/10/20 16:01 Troponin I 0.08 ng/mL (0-1.5) 02/23/20 11:18 C-Reactive Protein 7.80 mg/L (0-3.0) H 02/26/20 04:35 Total Protein 5.6 g/dL (6.4-8.2) L 02/26/20 04:35 Albumin 1.7 g/dL (3.4-5.0) L 02/26/20 04:35 Globulin 3.9 g/dL (2.5-4.5) 02/26/20 04:35 Albumin/Globulin Ratio 0.4 Ratio (1.1-2.1) L 02/26/20 04:35 Prealbumin 17.8 mg/dL (18-35.7) L 02/21/20 06:24 Specimen Type Catherized urine 02/15/20 10:30 Urine Color Yellow (YELLOW) 02/15/20 10:30 Urine Appearance Clear (CLEAR) 02/15/20 10:30 Urine pH 7.0 (5.0 - 8.0) 02/15/20 10:30 Ur Specific [place] 1.010 (1.000-1.030) 02/15/20 10:30 Urine Protein Negative (NEGATIVE) 02/15/20 10:30 Urine Glucose (UA) Negative (NEGATIVE) 02/15/20 10:30 Urine Ketones Negative (NEGATIVE) 02/15/20 10:30 Urine Occult Blood Negative (NEGATIVE) 02/15/20 10:30 Urine Nitrite Negative (NEGATIVE) 02/15/20 10:30 Urine Bilirubin Negative (NEGATIVE) 02/15/20 10:30 Urine Urobilinogen Normal (NORMAL) 02/15/20 10:30 Ur Leukocyte Esterase Negative (NEGATIVE) 02/15/20 10:30 SARS CoV-2 RNA Rapid GREGG Positive (NEGATIVE) A 02/11/20 02:40 Plan (1) Pneumonia due to COVID-19 virus: Status: Acute Plan: Remdesivir, Bronchodilators, Solumedrol, Levaquin, I/S, supplemental O2 (2) Hypoxia: Status: Acute (3) Acute respiratory failure: Status: Acute
[2020-02-26] MEDS: PROCALAMINE 3 % 1,000 ML IV SCH (17:30)
[2020-02-26] MEDS: LEVAQUIN PREMIX IV 750 MG 750 MG/150 ML BAG IV SCH (23:00)
[2020-02-27] MEDS: ROBITUSSIN DM PO SCH ×5 (02:19→23:00)
[2020-02-27] MEDS: ASCORBIC ACID INJ MULTI-DOSE VIAL 1,500 MG in NS 50 ML IV 50 ML IV SCH ×4 (04:00→23:00)
[2020-02-27] MEDS: NS 1000 ML 1,000 ML IV SCH (05:13)
[2020-02-27 05:25] LABS: ABG BASE EXCESS 9.2 mmol/L (-2.0-2.0)
[2020-02-27 05:26] LABS: ABG HCO3 35.9 mmol/L (22-26)
[2020-02-27 05:27] LABS: ABG ALLEN TEST POS
[2020-02-27 05:32] LABS: BASOPHILS % (AUTO) 0.1 % (0.2-1.0); EOSINOPHILS % (AUTO) 0.1 % (0.9-2.9); HEMATOCRIT 38.8 % (36.0-47.0); HEMOGLOBIN 12.5 g/dL (12.0-16.0); LYMPHOCYTES # (AUTO) 0.4 X10^3/uL (1.3-2.9); LYMPHOCYTES % (AUTO) 2.9 % (21.0-51.0); MEAN CORPUSCULAR HEMOGLOBIN 29.2 pg (27.0-34.0); MEAN CORPUSCULAR HGB CONC 32.1 g/dL (33.0-35.0); MEAN CORPUSCULAR VOLUME 90.8 fL (80.0-100.0); MEAN PLATELET VOLUME 8.7 fL (7.4-11.0); MONOCYTES # (AUTO) 0.6 x10^3/uL (0.3-0.8); NEUTROPHILS # (AUTO) 11.9 x10^3/uL (2.2-4.8); NEUTROPHILS % (AUTO) 91.9 % (42.0-75.0); PLATELET COUNT 155 X10^3/uL (150.0-450.0); RED BLOOD COUNT 4.27 X10^6/uL (3.5-5.4); RED CELL DISTRIBUTION WIDTH 14.1 % (11.6-16.5); WHITE BLOOD COUNT 12.9 X10^3/uL (3.6-10.0)
[2020-02-27 05:37] LABS: ALANINE AMINOTRANSFERASE 47 Units/L (12-78); ALBUMIN 1.7 g/dL (3.4-5.0); ALKALINE PHOSPHATASE 298 Units/L (46-116); ASPARTATE AMINO TRANSFERASE 41 Units/L (15-37); BLOOD UREA NITROGEN 26 mg/dL (7-18); CALCIUM 8.1 mg/dL (8.5-10.1); CARBON DIOXIDE 30.2 mmol/L (21-32); CHLORIDE 104 mmol/L (98-107); COR CA(FOR HYPOALB) 9.9 mg/dL (8.5-10.1); COR NA(FOR HYPERGLY) 140 mmol/L (136-145); CREATININE 0.45 mg/dL (0.55-1.02); SODIUM 139 mmol/L (136-145); TOTAL PROTEIN 5.4 g/dL (6.4-8.2); eGFR NON BLACK RACES > 60 (>60)
--- NOTE | 2020-02-27 05:48 | RAD ---
PROCEDURE: Chest X-ray 1 View .HISTORY: COVID PNEUMONIA .TECHNIQUE: AP view .COMPARISON: 02/26/2020.TECHNICAL QUALITY: Satisfactory .FINDINGS:Unremarkable cardio mediastinal silhouette.Central vascularity probably normal.Moderate consolidation throughout both lung lopez that are unchanged with no pleural fluid or pneumothorax.IMPRESSION:Unchanged moderate bilateral pneumonia.Electronically signed by: Sascha Cage (Feb 27, 2020 05:46:58)
[2020-02-27 06:19] LABS: PLATELET MORPHOLOGY COMMENT NORMAL (NORMAL)
[2020-02-27] MEDS: SOLU-Medrol 40 MG VIAL IVP SCH ×3 (06:50→23:00)
[2020-02-27] MEDS: DIPRIVAN PREMIX 1 GRAM IV 1,000 MG/100 ML VIAL IV PRN ×2 (08:15→20:17)
[2020-02-27] MEDS ORDERED: NS 500 ML IV 500 ML IV ONE (08:38)
[2020-02-27] MEDS ORDERED: KETALAR ONE (08:45)
[2020-02-27] MEDS ORDERED: DIPRIVAN VIAL ONE (08:45)
[2020-02-27] MEDS ORDERED: QUELICIN (OR ANECTINE) ONE (08:45)
[2020-02-27] MEDS ORDERED: VERSED 100 MG in NS 100 ML IV 80 ML IV PRN (09:42)
[2020-02-27] MEDS: LACRI-LUBE S.O.P. AFFEYE PRN (09:54)
[2020-02-27] MEDS: DUONEB 0.5 MG/3 MG (3 mL) NEB SCH ×4 (10:17→21:58)
--- NOTE | 2020-02-27 10:26 | RAD ---
HISTORYCOVID, NG tube placementSTUDYKUBCOMPARISONNoneFINDINGSThere is a nasogastric tube present. Its tip is within the sto mach however the side hole is likely within the distal esophagus. Advancement is recommended.IMPRESSI ONNG tube tip likely within the stomach however the side hole is when the distal esophagus and advanc ement is recommended.Electronically signed by: RAGINI CERRATO (Feb 27, 2020 10:25:14)
--- NOTE | 2020-02-27 10:27 | RAD ---
HISTORYCOVID, ET TUBE PLACEMENTSTUDYCHEST, 1 VIEWCOMPARISONSame day chest radiographTECHNIQUEAP view of the chest, 4 imagesFINDINGSET tube in good position. NG tube in good position. Cardiac and mediastinal contours are within normal limits. No significant change in diffuse bilateral airspace opacities. Right IJ central line in good position. Subcutaneous gas in the neck and chest appears worse. Pneumomediastinum appears similar to prior.IMPRESSIONHardware in good position including ET tube. No significant change in bilateral airspace opacities. Worsened subcutaneous emphysema in the neck neck and chest. Pneumomediastinum.Electronically signed by: Alek Dow (Feb 27, 2020 10:25:55)
[2020-02-27] MEDS: ZINC SULFATE PO SCH ×2 (11:23→23:00)
[2020-02-27] MEDS: CARDIZEM ER 60 MG 12-HR PO SCH (11:24)
[2020-02-27] MEDS: ELIQUIS PO SCH ×2 (11:25→23:00)
[2020-02-27] MEDS: VSL#3 PO SCH (11:26)
[2020-02-27] MEDS: LIPITOR TAB 40 MG PO SCH (11:26)
[2020-02-27] MEDS: VITAMIN D3 125 mcg (5,000 UNITS) PO SCH (11:27)
[2020-02-27] MEDS: SYNTHROID 50 mcg TAB PO SCH (11:28)
[2020-02-27] MEDS: LOPRESSOR TAB 50 MG PO SCH (11:29)
[2020-02-27] MEDS: VITAMIN A PO SCH (11:33)
[2020-02-27] MEDS: PROTONIX INJ 40 MG VIAL IVP SCH (11:33)
[2020-02-27] MEDS: MILK OF MAGNESIA PO SCH ×2 (11:34→23:00)
--- NOTE | 2020-02-27 12:48 | PCM.PROG ---
Progress Note Progress Note for Day of Date of Exam: 02/27/20 Subjective Subjective: Pt is a 74 year old female past medical history Multiple Sclerosis, Hypothyroidism, admitted for COVID-19 pneumonia (positive on 02/10) and Acute Respiratory Failure. Pt continues to require BiPAP support with FiO2 at 85%. Pt states this morning she is really tired from BiPAP and work of breathing. She has been on BiPAP for many days now, intubation and mechanical ventilation was discussed and patient agrees with intervention. Labs/imaging: Wbc 12.9, Hgb 12.5, Plt 155, Na 140, K 5.2, Cr 0.45, Glucose 142. AST: 41, ALT 47, ALP 298, ABG was obtained that revealed: PH 7.4, PC02 58, P02 99, HC03 35, 02 SAT 98%, on BiPAP with FI02 85%. CXR: Unchanged moderate bilateral pneumonia. Her hospital/ treatment course includes: Remdesivir(completed course), Solumedrol 80mg q8h, Bronchodilators, Antibiotics: Levaquin, IVF NS@75ml/h, Eliquis 5mg BID, immune supporting supplements, Procal nutrition, supplemental O2, I/S, Respiratory therapy consult, Pneumonia protocol. Discussed with nursing, RT, to contact [employer] for intubation and placing patient on mechanical ventilation. Will monitor close ly and follow up labs/imaging in the morning. Critical care time spent 30-74 minutes in clinical assessment, reviewing labs/imaging, decision making, and documentation. Past Medical Family Social History Past Med/Fam/Surg Hx: No changes since H&P Allergies: Allergies bacitracin [From Neosporin ([id number])] Allergy (Verified 02/10/20 17:21) cephalexin [From Keflex] Allergy (Verified 02/10/20 17:21) neomycin [From Neosporin ([id number])] Allergy (Verified 02/10/20 17:21) ofloxacin [From Floxin] Allergy (Verified 02/10/20 17:21) polymyxin B [From Neosporin ([id number])] Allergy (Verified 02/10/20 17:21) Review of Systems ROS: No change since H&P Vital Signs and I&O's Vital Signs: Temperature 97.6 F Pulse Rate [Right Radial] 91 Pulse Rate 79 Respiratory Rate 21 Blood Pressure [Left Arm] 156/73 Blood Pressure 158/82 O2 Sat by Pulse Oximetry 96 Intake and Output: Intake & Output 02/24/20 02/25/20 02/26/20 02/27/20 23:59 23:59 23:59 23:59 Intake Total 3733 / 3733 2695 / 2695 2055 / 2055 1295 / 1295 Output Total 1000 / 1000 1200 / 1200 1550 / 1550 450 / 450 Balance 2733 / 2733 1495 / 1495 506 / 506 845 / 845 Physical Exam Oriented: Normal Eyes: Normal Ear: Normal Nose: Normal Throat: Normal Respiratory: Diminished Cardiovascular: Normal and Irregular : Normal Auscultation: Bowel Sounds: Normal Tenderness: Normal Skin: Normal Musculoskeletal: Normal Psychiatric: Normal Mood Description: Calm and Appropriate Affect: Normal Speech Pattern: Clear and Appropriate Laboratory and Diagnostics Result Diagrams: 02/27/20 04:20 02/27/20 04:20 Labs: 02/10/20 16:05 Blood Blood Culture - Final 02/10/20 16:01 Blood Blood Culture - Final Laboratory WBC 12.9 X10^3/uL (3.6-10.0) H 02/27/20 04:20 RBC 4.27 X10^6/uL (3.5-5.4) 02/27/20 04:20 Hgb 12.5 g/dL (12.0-16.0) 02/27/20 04:20 Hct 38.8 % (36.0-47.0) 02/27/20 04:20 MCV 90.8 fL (80.0-100.0) 02/27/20 04:20 MCH 29.2 pg (27.0-34.0) 02/27/20 04:20 MCHC 32.1 g/dL (33.0-35.0) L 02/27/20 04:20 RDW 14.1 % (11.6-16.5) 02/27/20 04:20 Plt Count 155 X10^3/uL (150.0-450.0) 02/27/20 04:20 Plt Count Comment Adequate (ADEQUATE) 02/27/20 04:20 MPV 8.7 fL (7.4-11.0) 02/27/20 04:20 Neut % (Auto) 91.9 % (42.0-75.0) H 02/27/20 04:20 Lymph % (Auto) 2.9 % (21.0-51.0) L 02/27/20 04:20 [place] % (Auto) 5.0 % (0.0-13.0) 02/27/20 04:20 Eos % (Auto) 0.1 % (0.9-2.9) L 02/27/20 04:20 Baso % (Auto) 0.1 % (0.2-1.0) L 02/27/20 04:20 Neut # (Auto) 11.9 x10^3/uL (2.2-4.8) H 02/27/20 04:20 Lymph # (Auto) 0.4 X10^3/uL (1.3-2.9) L 02/27/20 04:20 [place] # (Auto) 0.6 x10^3/uL (0.3-0.8) 02/27/20 04:20 Eos # (Auto) 0.0 x10^3/uL (0.0-0.2) 02/27/20 04:20 Baso # (Auto) 0.0 X10^3/uL (0.0-0.1) 02/27/20 04:20 Absolute Nucleated RBC 0.0 /100WBC 02/27/20 04:20 Total Counted 100 02/27/20 04:20 Neutrophils % (Manual) 93 % (39-76) H 02/27/20 04:20 Band Neutrophils % 2 % (0-10) 02/23/20 04:50 Lymphocytes % (Manual) 2 % (13-43) L 02/27/20 04:20 Monocytes % (Manual) 5 % (4-9) 02/27/20 04:20 Plt Morphology Comment Normal (NORMAL) 02/27/20 04:20 RBC Morphology Normal (NORMAL) 02/27/20 04:20 D-Dimer 3.32 ug/ml (0.0-0.57) H* 02/26/20 04:35 Sample Site [place] 02/27/20 05:23 ABG pH 7.400 (7.35-7.45) 02/27/20 05:23 ABG pCO2 58.0 mmHg (35.0-45.0) H* 02/27/20 05:23 ABG pO2 99.0 mmHg (80.0-100.0) 02/27/20 05:23 ABG HCO3 35.9 mmol/L (22-26) H* 02/27/20 05:23 ABG O2 Saturation 98.0 % (90-100) 02/27/20 05:23 ABG Base Excess 9.2 mmol/L (-2.0-2.0) H 02/27/20 05:23 Gage Test Pos 02/27/20 05:23 A-a Gradient 542.0 mmHg 02/27/20 05:23 FiO2 100.0 02/27/20 05:23 Blood Gas Comments [place] abg well-mtf 02/27/20 05:23 Sodium 139 mmol/L (136-145) 02/27/20 04:20 Corrected Sodium 140 mmol/L (136-145) 02/27/20 04:20 Potassium 5.2 mmol/L (3.5-5.1) H 02/27/20 04:20 Chloride 104 mmol/L (98-107) 02/27/20 04:20 Carbon Dioxide 30.2 mmol/L (21-32) 02/27/20 04:20 BUN 26 mg/dL (7-18) H 02/27/20 04:20 Creatinine 0.45 mg/dL (0.55-1.02) L 02/27/20 04:20 Est GFR (MDRD) Af Amer > 60 (>60) 02/27/20 04:20 Est GFR (MDRD) Non-Af > 60 (>60) 02/27/20 04:20 Glucose 142 mg/dL (65-99) H 02/27/20 04:20 Lactic Acid 1.6 mmol/L (0.4-2.0) 02/10/20 16:01 Calcium 8.1 mg/dL (8.5-10.1) L 02/27/20 04:20 Corrected Calcium 9.9 mg/dL (8.5-10.1) 02/27/20 04:20 Ferritin 682 ng/mL (8-252) H 02/11/20 04:20 Total Bilirubin 0.30 mg/dL (0.2-1.0) 02/27/20 04:20 AST 41 Units/L (15-37) H 02/27/20 04:20 ALT 47 Units/L (12-78) 02/27/20 04:20 Alkaline Phosphatase 298 Units/L (46-116) H 02/27/20 04:20 Creatine Kinase 52 Units/L (26-192) 02/10/20 16:01 CK-MB (CK-2) < 1.0 ng/mL (0-4.0) 02/10/20 16:01 CK/CKMB % Calc 1.9 % (<4) 02/10/20 16:01 Troponin I 0.08 ng/mL (0-1.5) 02/23/20 11:18 C-Reactive Protein 7.80 mg/L (0-3.0) H 02/26/20 04:35 Total Protein 5.4 g/dL (6.4-8.2) L 02/27/20 04:20 Albumin 1.7 g/dL (3.4-5.0) L 02/27/20 04:20 Globulin 3.7 g/dL (2.5-4.5) 02/27/20 04:20 Albumin/Globulin Ratio 0.5 Ratio (1.1-2.1) L 02/27/20 04:20 Prealbumin 17.8 mg/dL (18-35.7) L 02/21/20 06:24 Specimen Type Catherized urine 02/15/20 10:30 Urine Color Yellow (YELLOW) 02/15/20 10:30 Urine Appearance Clear (CLEAR) 02/15/20 10:30 Urine pH 7.0 (5.0 - 8.0) 02/15/20 10:30 Ur Specific [place] 1.010 (1.000-1.030) 02/15/20 10:30 Urine Protein Negative (NEGATIVE) 02/15/20 10:30 Urine Glucose (UA) Negative (NEGATIVE) 02/15/20 10:30 Urine Ketones Negative (NEGATIVE) 02/15/20 10:30 Urine Occult Blood Negative (NEGATIVE) 02/15/20 10:30 Urine Nitrite Negative (NEGATIVE) 02/15/20 10:30 Urine Bilirubin Negative (NEGATIVE) 02/15/20 10:30 Urine Urobilinogen Normal (NORMAL) 02/15/20 10:30 Ur Leukocyte Esterase Negative (NEGATIVE) 02/15/20 10:30 SARS CoV-2 RNA Rapid GREGG Positive (NEGATIVE) A 02/11/20 02:40 Plan (1) Pneumonia due to COVID-19 virus: Status: Acute Plan: Remdesivir, Bronchodilators, Solumedrol, Levaquin, I/S, supplemental O2 (2) Hypoxia: Status: Acute (3) Acute respiratory failure: Status: Acute
[2020-02-27 12:49] LABS: ABG BASE EXCESS 10.3 mmol/L (-2.0-2.0)
[2020-02-27 12:52] LABS: ABG ALLEN TEST POS; ABG HCO3 37.5 mmol/L (22-26)
--- NOTE | 2020-02-27 13:50 | RAD ---
HISTORYNG TUBE PLACEMENT Relevant Clinical [id number] is severe extensive lung alveolar radiopacities. There is a nasogastric tube below the diaphragm projecting in the stomach body in comparison with th e prior the tip is projecting at the level of L1 and on prior study at [id number] tub e in the stomach body projecting below the diaphragm near to the midline with the tip ending at L1 wi th some retraction since prior.Electronically signed by: Juana Edwards (Feb 27, 2020 13:48:47)
--- NOTE | 2020-02-27 14:24 | DR.UPDATE ---
H&P Update History and Physical Update: History and Physical reviewed and patient examined. Changes noted: NO Yes with the following:will intubate and place invasive lines for fluids/sampling/monitoring H&P Reviewed: Yes Patient was examined?: Yes Procedures (ALL) - Arterial Line Consent obtained: verbal consent Time out performed: Yes Size(gauge): 20 Technique used: guided wire technique Post-procedure: dry sterile dressing placed Patient tolerated procedure: Yes Site: Left, radial - Central Line Placement PCM.CLCO: verbal consent Time out performed: Yes Patient placed pm monitor/pulse ox: Yes MD prep: mask, gown, gloves, other Centrial line prep: chlorhexidine scrub, sterile drapes applied Local anesthsia used: lidocane 1% Ultrasound used for placement: Yes (right ij id'd via u/s) Central line lumen ininserted: triple (cannulation visualized via u/s) Post procedure: sutured in place, good blood return, all ports aspirated, flushed,capped, sterile dressing applied Post procedure xray: tip oc catheter in good position, no pneumothorax seen Patient tolerated procedure: Yes Complications: none - Intubation Time out performed: Yes Sedative: ketamine (50mg, propofol 60mg) paralytic: succinylchline (100mg) Laryngoscope: fiber optic video scope (glidescope 3, grade 1 view) ET tube size: 7.5 Tube secured depth: 21 Tube secured location: teeth Tube placement confirmation: visualized tube passing through cords, equal breath sounds bilaterally, no breath sounds over epigastrium, comfirmation by capnometer Patient tolerated procedure: Yes Intubation complications: none
[2020-02-27] MEDS: PROCALAMINE 3 % 1,000 ML IV SCH (15:20)
[2020-02-27] MEDS ORDERED: DULCOLAX SUPPOSITORY 10 MG RECTAL ONE (18:12)
[2020-02-28] MEDS ORDERED: ATIVAN 20 MG/10 ML VIAL ONE (00:39)
[2020-02-28] MEDS ORDERED: NS 100 ML IV 100 ML IV ONE (00:40)
[2020-02-28] MEDS: ATIVAN 20 MG/10 ML VIAL 20 MG in NS 100 ML IV 90 ML IV PRN ×3 (01:07→21:28)
[2020-02-28] MEDS: LEVAQUIN PREMIX IV 750 MG 750 MG/150 ML BAG IV SCH ×2 (01:15→21:28)
[2020-02-28] MEDS: COLACE CAP 100 MG PO SCH ×3 (01:29→21:30)
[2020-02-28] MEDS: LOPRESSOR TAB 50 MG PO SCH ×3 (01:32→21:30)
[2020-02-28] MEDS: CARDIZEM ER 60 MG 12-HR PO SCH ×3 (01:34→21:30)
[2020-02-28] MEDS: NEURONTIN CAP 300 MG PO SCH ×2 (01:35→21:29)
[2020-02-28] MEDS: ROBITUSSIN DM PO SCH ×5 (01:37→21:28)
[2020-02-28] MEDS: ASCORBIC ACID INJ MULTI-DOSE VIAL 1,500 MG in NS 50 ML IV 50 ML IV SCH ×4 (04:00→21:28)
[2020-02-28 05:00] LABS: ABG BASE EXCESS 7.8 mmol/L (-2.0-2.0)
[2020-02-28 05:02] LABS: ABG HCO3 33.7 mmol/L (22-26)
[2020-02-28] MEDS: SOLU-Medrol 40 MG VIAL IVP SCH ×3 (06:00→21:28)
--- NOTE | 2020-02-28 06:17 | RAD ---
HISTORYcovidSTUDYPortable AP [id number]/15/2021FINDINGSThere is no significant change in appearance of heart or lungs. Diffuse pulmonary infiltrates are similar. The heart is not significantly enlarged. Stable position of support lines. Persistent extrapulmonary air noted in soft tissues and mediastinum. No developing pneumothorax seen.IMPRESSIONNo change.Electronically signed by: ALESSANDRO RAJPUT (Feb 28, 2020 06:16:21)
[2020-02-28 06:48] LABS: ALANINE AMINOTRANSFERASE 34 Units/L (12-78); ALBUMIN 1.3 g/dL (3.4-5.0); ALKALINE PHOSPHATASE 195 Units/L (46-116); ASPARTATE AMINO TRANSFERASE 33 Units/L (15-37); BLOOD UREA NITROGEN 21 mg/dL (7-18); CALCIUM 7.6 mg/dL (8.5-10.1); CARBON DIOXIDE 33.6 mmol/L (21-32); CHLORIDE 105 mmol/L (98-107); COR CA(FOR HYPOALB) 9.8 mg/dL (8.5-10.1); COR NA(FOR HYPERGLY) 142 mmol/L (136-145); CREATININE 0.33 mg/dL (0.55-1.02); SODIUM 141 mmol/L (136-145); TOTAL PROTEIN 4.2 g/dL (6.4-8.2); eGFR NON BLACK RACES > 60 (>60)
[2020-02-28 07:52] LABS: BASOPHILS % (AUTO) 0 % (0.2-1.0); EOSINOPHILS % (AUTO) 0.1 % (0.9-2.9); HEMATOCRIT 33.6 % (36.0-47.0); HEMOGLOBIN 11.2 g/dL (12.0-16.0); LYMPHOCYTES # (AUTO) 0.3 X10^3/uL (1.3-2.9); LYMPHOCYTES % (AUTO) 2.6 % (21.0-51.0); MEAN CORPUSCULAR HGB CONC 33.3 g/dL (33.0-35.0); MEAN CORPUSCULAR VOLUME 90.1 fL (80.0-100.0); MEAN PLATELET VOLUME 8.2 fL (7.4-11.0); MONOCYTES # (AUTO) 0.5 x10^3/uL (0.3-0.8); MONOCYTES % (AUTO) 4.8 % (0.0-13.0); NEUTROPHILS % (AUTO) 92.5 % (42.0-75.0); PLATELET COUNT 135 X10^3/uL (150.0-450.0); RED BLOOD COUNT 3.73 X10^6/uL (3.5-5.4); WHITE BLOOD COUNT 10.8 X10^3/uL (3.6-10.0)
[2020-02-28 08:53] LABS: BAND NEUTROPHILS % 3 % (0-10); PLATELET MORPHOLOGY COMMENT NORMAL (NORMAL)
[2020-02-28] MEDS: DIPRIVAN PREMIX 1 GRAM IV 1,000 MG/100 ML VIAL IV PRN ×2 (09:00→21:28)
[2020-02-28] MEDS: DUONEB 0.5 MG/3 MG (3 mL) NEB SCH ×4 (09:25→20:38)
[2020-02-28] MEDS: VITAMIN A PO SCH (09:37)
[2020-02-28] MEDS: VSL#3 PO SCH (09:38)
[2020-02-28] MEDS: VITAMIN D3 125 mcg (5,000 UNITS) PO SCH (09:38)
[2020-02-28] MEDS: ZINC SULFATE PO SCH ×2 (09:38→21:29)
[2020-02-28] MEDS: SYNTHROID 50 mcg TAB PO SCH (09:40)
[2020-02-28] MEDS: PROTONIX INJ 40 MG VIAL IVP SCH (09:40)
[2020-02-28] MEDS: MILK OF MAGNESIA PO SCH ×2 (09:40→21:29)
[2020-02-28] MEDS: LIPITOR TAB 40 MG PO SCH (09:41)
[2020-02-28] MEDS: ELIQUIS PO SCH ×2 (09:41→21:28)
[2020-02-28] MEDS: NS 1000 ML 1,000 ML IV SCH (17:45)
[2020-02-29] MEDS: PROCALAMINE 3 % 1,000 ML IV SCH (01:09)
[2020-02-29] MEDS: NS 1000 ML 1,000 ML IV SCH ×2 (02:30→22:36)
[2020-02-29] MEDS: ASCORBIC ACID INJ MULTI-DOSE VIAL 1,500 MG in NS 50 ML IV 50 ML IV SCH ×4 (02:30→22:01)
[2020-02-29 04:42] LABS: ABG BASE EXCESS 9.8 mmol/L (-2.0-2.0)
[2020-02-29 04:46] LABS: ABG HCO3 36.9 mmol/L (22-26)
[2020-02-29] MEDS: SOLU-Medrol 40 MG VIAL IVP SCH ×3 (06:19→22:03)
[2020-02-29 06:34] LABS: BASOPHILS % (AUTO) 0 % (0.2-1.0); HEMATOCRIT 34.8 % (36.0-47.0); HEMOGLOBIN 11.3 g/dL (12.0-16.0); LYMPHOCYTES # (AUTO) 0.2 X10^3/uL (1.3-2.9); MEAN CORPUSCULAR HEMOGLOBIN 29.5 pg (27.0-34.0); MEAN CORPUSCULAR HGB CONC 32.4 g/dL (33.0-35.0); MEAN CORPUSCULAR VOLUME 91.1 fL (80.0-100.0); MEAN PLATELET VOLUME 8.6 fL (7.4-11.0); MONOCYTES # (AUTO) 0.3 x10^3/uL (0.3-0.8); MONOCYTES % (AUTO) 3.2 % (0.0-13.0); NEUTROPHILS # (AUTO) 10.2 x10^3/uL (2.2-4.8); NEUTROPHILS % (AUTO) 94.8 % (42.0-75.0); PLATELET COUNT 136 X10^3/uL (150.0-450.0); RED BLOOD COUNT 3.83 X10^6/uL (3.5-5.4); WHITE BLOOD COUNT 10.8 X10^3/uL (3.6-10.0)
[2020-02-29 06:54] LABS: ALANINE AMINOTRANSFERASE 42 Units/L (12-78); ALBUMIN 1.3 g/dL (3.4-5.0); ALKALINE PHOSPHATASE 175 Units/L (46-116); ASPARTATE AMINO TRANSFERASE 43 Units/L (15-37); BLOOD UREA NITROGEN 25 mg/dL (7-18); CALCIUM 7.4 mg/dL (8.5-10.1); CARBON DIOXIDE 34.1 mmol/L (21-32); CHLORIDE 107 mmol/L (98-107); COR CA(FOR HYPOALB) 9.6 mg/dL (8.5-10.1); COR NA(FOR HYPERGLY) 145 mmol/L (136-145); CREATININE 0.39 mg/dL (0.55-1.02); SODIUM 143 mmol/L (136-145); TOTAL PROTEIN 4.3 g/dL (6.4-8.2); eGFR NON BLACK RACES > 60 (>60)
--- NOTE | 2020-02-29 07:00 | RAD ---
History: Pneumonia, COVID-19Study: Portable chestComparison: YesterdayFINDINGS/IMPRESSION:No significant interval change in appearance of lungs and support lines allowing for differences in positioning and overlying wires. There is a small amount of persistent subcutaneous gas in the supraclavicular soft tissues. No pneumothorax identified. Heart size is normal.Electronically signed by: SAL GARCIA (Feb 29, 2020 06:58:57)
[2020-02-29 07:16] LABS: PLATELET MORPHOLOGY COMMENT NORMAL (NORMAL)
[2020-02-29] MEDS: DIPRIVAN PREMIX 1 GRAM IV 1,000 MG/100 ML VIAL IV PRN ×2 (07:30→20:25)
[2020-02-29] MEDS: ZINC SULFATE PO SCH ×2 (09:41→22:03)
[2020-02-29] MEDS: VSL#3 PO SCH (09:42)
[2020-02-29] MEDS: VITAMIN A PO SCH (09:42)
[2020-02-29] MEDS: SYNTHROID 50 mcg TAB PO SCH (09:42)
[2020-02-29] MEDS: VITAMIN D3 125 mcg (5,000 UNITS) PO SCH (09:42)
[2020-02-29] MEDS: MILK OF MAGNESIA PO SCH ×2 (09:43→22:02)
[2020-02-29] MEDS: CARDIZEM ER 60 MG 12-HR PO SCH ×2 (09:43→22:01)
[2020-02-29] MEDS: ROBITUSSIN DM PO SCH ×4 (09:43→22:02)
[2020-02-29] MEDS: LOPRESSOR TAB 50 MG PO SCH ×2 (09:44→22:02)
[2020-02-29] MEDS: PROTONIX INJ 40 MG VIAL IVP SCH (09:44)
[2020-02-29] MEDS: LIPITOR TAB 40 MG PO SCH (09:45)
[2020-02-29] MEDS: ELIQUIS PO SCH ×2 (09:45→22:01)
[2020-02-29] MEDS: DUONEB 0.5 MG/3 MG (3 mL) NEB SCH ×3 (09:48→21:00)
[2020-02-29] MEDS: ATIVAN 20 MG/10 ML VIAL 20 MG in NS 100 ML IV 90 ML IV PRN ×2 (09:57→20:30)
[2020-02-29] MEDS: NEURONTIN CAP 300 MG PO SCH (22:02)
[2020-02-29] MEDS: COLACE CAP 100 MG PO SCH (22:02)
[2020-02-29] MEDS: LEVAQUIN PREMIX IV 750 MG 750 MG/150 ML BAG IV SCH (22:37)
[2020-03-01] MEDS: ASCORBIC ACID INJ MULTI-DOSE VIAL 1,500 MG in NS 50 ML IV 50 ML IV SCH ×4 (02:35→21:00)
[2020-03-01 04:04] LABS: ABG BASE EXCESS 12.5 mmol/L (-2.0-2.0)
[2020-03-01 04:05] LABS: ABG HCO3 39.2 mmol/L (22-26)
[2020-03-01 06:15] LABS: BASOPHILS % (AUTO) 0.2 % (0.2-1.0); EOSINOPHILS % (AUTO) 0.1 % (0.9-2.9); HEMATOCRIT 33.8 % (36.0-47.0); HEMOGLOBIN 11.1 g/dL (12.0-16.0); LYMPHOCYTES # (AUTO) 0.2 X10^3/uL (1.3-2.9); MEAN CORPUSCULAR HEMOGLOBIN 29.9 pg (27.0-34.0); MEAN CORPUSCULAR HGB CONC 32.9 g/dL (33.0-35.0); MEAN CORPUSCULAR VOLUME 90.8 fL (80.0-100.0); MEAN PLATELET VOLUME 8.6 fL (7.4-11.0); MONOCYTES # (AUTO) 0.4 x10^3/uL (0.3-0.8); MONOCYTES % (AUTO) 3.2 % (0.0-13.0); NEUTROPHILS # (AUTO) 10.5 x10^3/uL (2.2-4.8); NEUTROPHILS % (AUTO) 94.5 % (42.0-75.0); PLATELET COUNT 132 X10^3/uL (150.0-450.0); RED BLOOD COUNT 3.73 X10^6/uL (3.5-5.4); RED CELL DISTRIBUTION WIDTH 13.9 % (11.6-16.5); WHITE BLOOD COUNT 11.1 X10^3/uL (3.6-10.0)
[2020-03-01] MEDS: SOLU-Medrol 40 MG VIAL IVP SCH ×3 (06:25→21:00)
[2020-03-01] MEDS: ATIVAN 20 MG/10 ML VIAL 20 MG in NS 100 ML IV 90 ML IV PRN ×2 (06:26→19:15)
[2020-03-01 06:27] LABS: ALANINE AMINOTRANSFERASE 40 Units/L (12-78); ALBUMIN 1.3 g/dL (3.4-5.0); ALKALINE PHOSPHATASE 147 Units/L (46-116); ASPARTATE AMINO TRANSFERASE 44 Units/L (15-37); BLOOD UREA NITROGEN 31 mg/dL (7-18); CALCIUM 7.5 mg/dL (8.5-10.1); CARBON DIOXIDE 35.8 mmol/L (21-32); CHLORIDE 108 mmol/L (98-107); COR CA(FOR HYPOALB) 9.7 mg/dL (8.5-10.1); COR NA(FOR HYPERGLY) 145 mmol/L (136-145); CREATININE 0.42 mg/dL (0.55-1.02); SODIUM 144 mmol/L (136-145); TOTAL PROTEIN 4.2 g/dL (6.4-8.2); eGFR NON BLACK RACES > 60 (>60)
--- NOTE | 2020-03-01 07:39 | RAD ---
HISTORYFollow-up COVID-19STUDYChest AP [id number]/17/2021FINDINGSThere is an endotracheal tube in good position. There is a nasoga stric tube in good position. There is a right IJ line in good position. Heart size is normal. Pneumom ediastinum is identified. Bilateral infiltrates are unchanged. No pleural effusions are identified. B ameena thorax is unremarkable.IMPRESSIONPneumomediastinumNo change bilateral infiltratesElectronically s igned by: RAGINI CERRATO (Mar 01, 2020 07:37:55)
[2020-03-01 07:56] LABS: BAND NEUTROPHILS % 1 % (0-10)
[2020-03-01 07:57] LABS: PLATELET MORPHOLOGY COMMENT NORMAL (NORMAL)
[2020-03-01] MEDS: LOPRESSOR TAB 50 MG PO SCH ×2 (09:20→21:00)
[2020-03-01] MEDS: VITAMIN D3 125 mcg (5,000 UNITS) PO SCH (09:20)
[2020-03-01] MEDS: SYNTHROID 50 mcg TAB PO SCH (09:20)
[2020-03-01] MEDS: ZINC SULFATE PO SCH ×2 (09:20→21:00)
[2020-03-01] MEDS: MILK OF MAGNESIA PO SCH ×2 (09:20→21:00)
[2020-03-01] MEDS: CARDIZEM ER 60 MG 12-HR PO SCH ×2 (09:20→21:00)
[2020-03-01] MEDS: ROBITUSSIN DM PO SCH ×4 (09:20→21:00)
[2020-03-01] MEDS: ELIQUIS PO SCH ×2 (09:20→21:00)
[2020-03-01] MEDS: VSL#3 PO SCH (09:20)
[2020-03-01] MEDS: PROTONIX INJ 40 MG VIAL IVP SCH (09:20)
[2020-03-01] MEDS: VITAMIN A PO SCH (09:20)
[2020-03-01] MEDS: LIPITOR TAB 40 MG PO SCH (09:20)
[2020-03-01] MEDS: DUONEB 0.5 MG/3 MG (3 mL) NEB SCH ×4 (09:27→21:35)
[2020-03-01] MEDS: LR 1000 ML IV 1,000 ML IV SCH (10:03)
[2020-03-01] MEDS: DIPRIVAN PREMIX 1 GRAM IV 1,000 MG/100 ML VIAL IV PRN (13:30)
[2020-03-01] MEDS: NEURONTIN CAP 300 MG PO SCH (21:00)
[2020-03-01] MEDS: LEVAQUIN PREMIX IV 750 MG 750 MG/150 ML BAG IV SCH (22:00)
[2020-03-02] MEDS: LR 1000 ML IV 1,000 ML IV SCH ×5 (01:25→21:00)
[2020-03-02] MEDS: COLACE CAP 100 MG PO SCH ×2 (01:26→23:21)
[2020-03-02] MEDS: DIPRIVAN PREMIX 1 GRAM IV 1,000 MG/100 ML VIAL IV PRN ×2 (01:27→12:46)
[2020-03-02] MEDS: ATIVAN 20 MG/10 ML VIAL 20 MG in NS 100 ML IV 90 ML IV PRN ×2 (04:51→15:19)
[2020-03-02 05:45] LABS: BASOPHILS % (AUTO) 0.1 % (0.2-1.0); EOSINOPHILS % (AUTO) 0.1 % (0.9-2.9); HEMATOCRIT 34.8 % (36.0-47.0); HEMOGLOBIN 11.3 g/dL (12.0-16.0); LYMPHOCYTES # (AUTO) 0.4 X10^3/uL (1.3-2.9); LYMPHOCYTES % (AUTO) 2.7 % (21.0-51.0); MEAN CORPUSCULAR HEMOGLOBIN 29.4 pg (27.0-34.0); MEAN CORPUSCULAR HGB CONC 32.4 g/dL (33.0-35.0); MEAN CORPUSCULAR VOLUME 90.7 fL (80.0-100.0); MEAN PLATELET VOLUME 8.5 fL (7.4-11.0); MONOCYTES # (AUTO) 0.8 x10^3/uL (0.3-0.8); MONOCYTES % (AUTO) 5.6 % (0.0-13.0); NEUTROPHILS # (AUTO) 12.3 x10^3/uL (2.2-4.8); NEUTROPHILS % (AUTO) 91.5 % (42.0-75.0); PLATELET COUNT 131 X10^3/uL (150.0-450.0); RED BLOOD COUNT 3.84 X10^6/uL (3.5-5.4); WHITE BLOOD COUNT 13.5 X10^3/uL (3.6-10.0)
[2020-03-02 05:56] LABS: ALANINE AMINOTRANSFERASE 47 Units/L (12-78); ALBUMIN 1.2 g/dL (3.4-5.0); ALKALINE PHOSPHATASE 133 Units/L (46-116); ASPARTATE AMINO TRANSFERASE 62 Units/L (15-37); BLOOD UREA NITROGEN 30 mg/dL (7-18); CALCIUM 7.2 mg/dL (8.5-10.1); CARBON DIOXIDE 34.1 mmol/L (21-32); CHLORIDE 108 mmol/L (98-107); COR CA(FOR HYPOALB) 9.4 mg/dL (8.5-10.1); COR NA(FOR HYPERGLY) 145 mmol/L (136-145); CREATININE 0.48 mg/dL (0.55-1.02); SODIUM 144 mmol/L (136-145); TOTAL PROTEIN 3.9 g/dL (6.4-8.2); eGFR NON BLACK RACES > 60 (>60)
[2020-03-02 06:51] LABS: BAND NEUTROPHILS % 1 % (0-10)
[2020-03-02 06:52] LABS: HYPOCHROMASIA 1+; PLATELET MORPHOLOGY COMMENT NORMAL (NORMAL)
[2020-03-02] MEDS: DUONEB 0.5 MG/3 MG (3 mL) NEB SCH ×4 (09:03→21:04)
[2020-03-02] MEDS: PROTONIX INJ 40 MG VIAL IVP SCH (09:50)
[2020-03-02] MEDS: VITAMIN D3 125 mcg (5,000 UNITS) PO SCH (09:50)
[2020-03-02] MEDS: MILK OF MAGNESIA PO SCH ×2 (09:50→21:00)
[2020-03-02] MEDS: ROBITUSSIN DM PO SCH ×4 (09:50→21:00)
[2020-03-02] MEDS: ELIQUIS PO SCH ×2 (09:50→21:00)
[2020-03-02] MEDS: CARDIZEM ER 60 MG 12-HR PO SCH ×2 (09:50→21:00)
[2020-03-02] MEDS: SYNTHROID 50 mcg TAB PO SCH (09:50)
[2020-03-02] MEDS: SOLU-Medrol 40 MG VIAL IVP SCH ×2 (09:50→21:00)
[2020-03-02] MEDS: VITAMIN A PO SCH (09:50)
[2020-03-02] MEDS: VSL#3 PO SCH (09:50)
[2020-03-02] MEDS: ASCORBIC ACID INJ MULTI-DOSE VIAL 1,500 MG in NS 50 ML IV 50 ML IV SCH ×3 (09:50→21:00)
[2020-03-02] MEDS: LOPRESSOR TAB 50 MG PO SCH ×2 (09:50→21:00)
[2020-03-02] MEDS: ZINC SULFATE PO SCH ×2 (09:50→21:00)
[2020-03-02] MEDS: LIPITOR TAB 40 MG PO SCH (09:50)
[2020-03-02] MEDS: NEURONTIN CAP 300 MG PO SCH (21:00)
[2020-03-02] MEDS: LEVAQUIN PREMIX IV 750 MG 750 MG/150 ML BAG IV SCH (22:00)
[2020-03-03] MEDS: LR 1000 ML IV 1,000 ML IV SCH ×4 (00:32→22:00)
[2020-03-03] MEDS: DIPRIVAN PREMIX 1 GRAM IV 1,000 MG/100 ML VIAL IV PRN ×2 (01:10→18:47)
[2020-03-03] MEDS: ATIVAN 20 MG/10 ML VIAL 20 MG in NS 100 ML IV 90 ML IV PRN ×3 (02:04→19:15)
[2020-03-03] MEDS: ASCORBIC ACID INJ MULTI-DOSE VIAL 1,500 MG in NS 50 ML IV 50 ML IV SCH ×4 (03:29→22:00)
[2020-03-03 05:27] LABS: BASOPHILS % (AUTO) 0.1 % (0.2-1.0); EOSINOPHILS % (AUTO) 0.1 % (0.9-2.9); HEMATOCRIT 34.7 % (36.0-47.0); HEMOGLOBIN 11.3 g/dL (12.0-16.0); LYMPHOCYTES # (AUTO) 0.2 X10^3/uL (1.3-2.9); LYMPHOCYTES % (AUTO) 1.7 % (21.0-51.0); MEAN CORPUSCULAR HEMOGLOBIN 29.4 pg (27.0-34.0); MEAN CORPUSCULAR HGB CONC 32.7 g/dL (33.0-35.0); MEAN CORPUSCULAR VOLUME 90.1 fL (80.0-100.0); MEAN PLATELET VOLUME 8.5 fL (7.4-11.0); MONOCYTES # (AUTO) 0.3 x10^3/uL (0.3-0.8); MONOCYTES % (AUTO) 2.4 % (0.0-13.0); NEUTROPHILS # (AUTO) 12.1 x10^3/uL (2.2-4.8); NEUTROPHILS % (AUTO) 95.7 % (42.0-75.0); PLATELET COUNT 128 X10^3/uL (150.0-450.0); RED BLOOD COUNT 3.85 X10^6/uL (3.5-5.4); WHITE BLOOD COUNT 12.6 X10^3/uL (3.6-10.0)
[2020-03-03 05:40] LABS: ALANINE AMINOTRANSFERASE 76 Units/L (12-78); ALBUMIN 1.2 g/dL (3.4-5.0); ALKALINE PHOSPHATASE 132 Units/L (46-116); ASPARTATE AMINO TRANSFERASE 101 Units/L (15-37); BLOOD UREA NITROGEN 25 mg/dL (7-18); CALCIUM 7.2 mg/dL (8.5-10.1); CARBON DIOXIDE 33.9 mmol/L (21-32); CHLORIDE 105 mmol/L (98-107); COR CA(FOR HYPOALB) 9.4 mg/dL (8.5-10.1); COR NA(FOR HYPERGLY) 143 mmol/L (136-145); CREATININE 0.39 mg/dL (0.55-1.02); SODIUM 142 mmol/L (136-145); eGFR NON BLACK RACES > 60 (>60)
[2020-03-03 06:06] LABS: ABG HCO3 36.8 mmol/L (22-26)
[2020-03-03 06:16] LABS: PLATELET MORPHOLOGY COMMENT NORMAL (NORMAL)
--- NOTE | 2020-03-03 06:38 | RAD ---
HISTORYFollow-up COVID-19STUDYChest AP [id number]/18/2021FINDINGSThere is an endotracheal tube in good position. There is a nasoga stric tube with the tip within the stomach and the side hole possibly near the gastroesophageal junct ion. Advancement is recommended. There is increasing pneumomediastinum now with subcutaneous air in t he left supraclavicular region and overlying the left lung apex. There also appears to be a trace lef t pneumothorax. Heart size remains normal. The lungs are hypoinflated. Bilateral interstitial and larry und-glass infiltrates are unchanged when compared to the prior examination. No pleural effusions are identified. Bony thorax is unremarkable.IMPRESSIONSlight increase pneumomediastinum and now with subc utaneous air identified in the left supraclavicular region over the left lung apexLikely trace left p neumothoraxNo change bilateral infiltratesElectronically signed by: RAGINI CERRATO (Mar 03, 2020 06:36 :29)
[2020-03-03] MEDS: DUONEB 0.5 MG/3 MG (3 mL) NEB SCH ×4 (09:03→21:09)
[2020-03-03] MEDS: SOLU-Medrol 40 MG VIAL IVP SCH ×2 (10:00→22:00)
[2020-03-03] MEDS: PROTONIX INJ 40 MG VIAL IVP SCH (10:00)
[2020-03-03] MEDS: ROBITUSSIN DM PO SCH ×4 (11:55→22:00)
[2020-03-03] MEDS: CARDIZEM ER 60 MG 12-HR PO SCH ×2 (16:00→22:00)
--- NOTE | 2020-03-03 16:26 | RAD ---
HISTORYNG TUBE PLACEMENT ADVANCEMENT, COVID19, VENTILATOR DEPENDANCESTUDYKUBCOMPARISONNoneTECHNIQUEAP supine projection, 1 imageFINDINGSNasogastric tube tip ov erlies the body of the stomach.Surgical clips in the right upper quadrant from a prior cholecystectom y.No gross free air.Airspace disease in the lung bases is consistent with the given history of a COVI D-19 respiratory infection.Moderate leftward curvature centered in the mid lumbar spine.No acute osse ous abnormality.IMPRESSIONNasogastric tube tip is in the body of the stomach.Electronically signed by : Wilfredo Franklin (Mar 03, 2020 16:25:28)
[2020-03-03] MEDS: ZINC SULFATE PO SCH ×2 (17:00→22:00)
[2020-03-03] MEDS: VITAMIN A PO SCH (17:00)
[2020-03-03] MEDS: IVERMECTIN PO SCH (17:00)
[2020-03-03] MEDS: VSL#3 PO SCH (17:00)
[2020-03-03] MEDS: SYNTHROID 50 mcg TAB PO SCH (17:00)
[2020-03-03] MEDS: LIPITOR TAB 40 MG PO SCH (17:00)
[2020-03-03] MEDS: VITAMIN D3 125 mcg (5,000 UNITS) PO SCH (17:00)
[2020-03-03] MEDS: ELIQUIS PO SCH ×2 (17:26→22:00)
[2020-03-03] MEDS: LOPRESSOR TAB 50 MG PO SCH ×2 (17:27→22:00)
[2020-03-03] MEDS: MILK OF MAGNESIA PO SCH ×2 (17:28→23:45)
[2020-03-03] MEDS: LACRI-LUBE S.O.P. AFFEYE PRN (19:00)
[2020-03-03] MEDS: NEURONTIN CAP 300 MG PO SCH (22:00)
[2020-03-03] MEDS: COLACE CAP 100 MG PO SCH (22:00)
[2020-03-03] MEDS: LEVAQUIN PREMIX IV 750 MG 750 MG/150 ML BAG IV SCH (23:00)
[2020-03-04] MEDS: ATIVAN 20 MG/10 ML VIAL 20 MG in NS 100 ML IV 90 ML IV PRN ×3 (02:23→21:27)
[2020-03-04] MEDS: ASCORBIC ACID INJ MULTI-DOSE VIAL 1,500 MG in NS 50 ML IV 50 ML IV SCH ×4 (03:19→21:35)
[2020-03-04 05:21] LABS: BASOPHILS % (AUTO) 0.3 % (0.2-1.0); EOSINOPHILS % (AUTO) 0.1 % (0.9-2.9); HEMATOCRIT 33.2 % (36.0-47.0); HEMOGLOBIN 10.9 g/dL (12.0-16.0); LYMPHOCYTES # (AUTO) 0.2 X10^3/uL (1.3-2.9); LYMPHOCYTES % (AUTO) 1.6 % (21.0-51.0); MEAN CORPUSCULAR HEMOGLOBIN 29.5 pg (27.0-34.0); MEAN CORPUSCULAR HGB CONC 32.8 g/dL (33.0-35.0); MEAN CORPUSCULAR VOLUME 90.2 fL (80.0-100.0); MEAN PLATELET VOLUME 8.6 fL (7.4-11.0); MONOCYTES # (AUTO) 0.3 x10^3/uL (0.3-0.8); MONOCYTES % (AUTO) 2.2 % (0.0-13.0); NEUTROPHILS # (AUTO) 14.8 x10^3/uL (2.2-4.8); NEUTROPHILS % (AUTO) 95.8 % (42.0-75.0); PLATELET COUNT 118 X10^3/uL (150.0-450.0); RED BLOOD COUNT 3.68 X10^6/uL (3.5-5.4); RED CELL DISTRIBUTION WIDTH 13.8 % (11.6-16.5); WHITE BLOOD COUNT 15.4 X10^3/uL (3.6-10.0)
[2020-03-04 05:27] LABS: ALANINE AMINOTRANSFERASE 87 Units/L (12-78); ALBUMIN 1.1 g/dL (3.4-5.0); ALKALINE PHOSPHATASE 130 Units/L (46-116); ASPARTATE AMINO TRANSFERASE 162 Units/L (15-37); BLOOD UREA NITROGEN 19 mg/dL (7-18); CALCIUM 7.1 mg/dL (8.5-10.1); CHLORIDE 104 mmol/L (98-107); COR CA(FOR HYPOALB) 9.4 mg/dL (8.5-10.1); COR NA(FOR HYPERGLY) 142 mmol/L (136-145); SODIUM 141 mmol/L (136-145); TOTAL PROTEIN 3.8 g/dL (6.4-8.2); eGFR NON BLACK RACES > 60 (>60)
[2020-03-04 06:00] LABS: PLATELET MORPHOLOGY COMMENT NORMAL (NORMAL)
--- NOTE | 2020-03-04 06:15 | RAD ---
HISTORYNG tube placementSTUDYKUBCOMPARISONNoneFINDINGSThere is a nasogastric tube with its tip and side hole within the stomach. However, advancement is recommended for optimal performance. The abdominal gas pattern i s nonspecific and nonobstructive. No abnormal masses or abnormal calcifications are identified. Regio nal skeleton is intact. Lumbar levo rotoscoliosis is present.IMPRESSIONNasogastric tube tip and side hole are within the proximal stomach. Advancement is recommended for optimal performanceElectronicall y signed by: RAGINI CERRATO (Mar 04, 2020 06:13:11)
[2020-03-04 06:23] LABS: ABG BASE EXCESS 9.8 mmol/L (-2.0-2.0)
--- NOTE | 2020-03-04 07:02 | RAD ---
HISTORYNG TUBE ADVANCEMENTSTUDYKUBCOMPARISONSa day KUB.TECHNIQUEKUB abdomen, 2 imagesFINDINGSNG tube in good position. Levocurvature of the lumbar spine. Paucity of bowel gas. No free air, pneumatosis or portal venous gas. Cholecystectomy clips noted.IMPRESSIONNG tube in good position. Paucity of bowel gas.Electronically signed by: Alek Dow (Mar 04, 2020 07:00:46)
--- NOTE | 2020-03-04 07:17 | RAD ---
HISTORYPneumomediastinum follow-upSTUDYChest AP [id number]/20/2021FINDINGSThere is an endotracheal tube in good position. There is a nasoga stric tube in good position. There is a right IJ line in good position. Once again noted is a pneumom ediastinum. Subcutaneous emphysema is noted in the supraclavicular regions. This finding is unchanged . Also unchanged trace left pneumothorax. Heart size remains normal. Bilateral interstitial and groun d-glass infiltrates are unchanged in degree or distribution from the prior examination. No pleural ef fusions are identified.IMPRESSIONNo significant change from the prior examinationElectronically fernando d by: RAGINI CERRATO (Mar 04, 2020 07:16:07)
[2020-03-04] MEDS: LR 1000 ML IV 1,000 ML IV SCH ×2 (08:38→17:59)
[2020-03-04] MEDS: DUONEB 0.5 MG/3 MG (3 mL) NEB SCH ×4 (08:43→20:55)
[2020-03-04] MEDS: ELIQUIS PO SCH ×2 (08:56→22:00)
[2020-03-04] MEDS: SOLU-Medrol 40 MG VIAL IVP SCH (08:56)
[2020-03-04] MEDS: PROTONIX INJ 40 MG VIAL IVP SCH (08:57)
[2020-03-04] MEDS: IVERMECTIN PO SCH (08:58)
[2020-03-04] MEDS: ROBITUSSIN DM PO SCH ×4 (08:58→22:00)
[2020-03-04] MEDS: LOPRESSOR TAB 50 MG PO SCH (09:01)
[2020-03-04] MEDS: ZINC SULFATE PO SCH ×2 (09:02→22:00)
[2020-03-04] MEDS: CARDIZEM ER 60 MG 12-HR PO SCH ×2 (09:07→22:00)
[2020-03-04] MEDS: SYNTHROID 50 mcg TAB PO SCH (09:08)
[2020-03-04] MEDS: MILK OF MAGNESIA PO SCH (09:08)
[2020-03-04] MEDS: LIPITOR TAB 40 MG PO SCH (09:08)
[2020-03-04] MEDS: VSL#3 PO SCH (09:09)
[2020-03-04] MEDS: VITAMIN D3 125 mcg (5,000 UNITS) PO SCH (09:09)
[2020-03-04] MEDS: VITAMIN A PO SCH (09:10)
[2020-03-04] MEDS ORDERED: DECADRON INJ IVP ONE (10:10)
[2020-03-04] MEDS: PRECEDEX 400 MCG/100 ML PREMIX 400 MCG/100 ML INFUS..BTL IV PRN (11:08)
[2020-03-04] MEDS ORDERED: BUTT CREAM (COMPOUND) TOP PRN (11:35)
[2020-03-04] MEDS: MERREM VIAL 500 MG in NS 100 ML IV + SPIKE MINIBAG* 100 ML IV SCH ×3 (15:00→22:10)
[2020-03-04] MEDS ORDERED: DECADRON INJ IVP NR (17:00)
[2020-03-04] MEDS: NEURONTIN CAP 300 MG PO SCH (22:00)
[2020-03-04] MEDS: ALBUMIN HUMAN 25%- 100 ML 100 ML IV SCH (23:12)
[2020-03-05] MEDS: LR 1000 ML IV 1,000 ML IV SCH ×3 (02:02→19:00)
[2020-03-05] MEDS: COLACE CAP 100 MG PO SCH (02:03)
[2020-03-05] MEDS: MILK OF MAGNESIA PO SCH ×2 (02:04→08:49)
[2020-03-05] MEDS: LOPRESSOR TAB 50 MG PO SCH ×3 (02:05→21:25)
[2020-03-05 04:25] LABS: ABG BASE EXCESS 12.3 mmol/L (-2.0-2.0)
[2020-03-05 04:26] LABS: ABG HCO3 38.7 mmol/L (22-26)
[2020-03-05] MEDS: ASCORBIC ACID INJ MULTI-DOSE VIAL 1,500 MG in NS 50 ML IV 50 ML IV SCH ×4 (05:30→21:05)
[2020-03-05] MEDS: PRECEDEX 400 MCG/100 ML PREMIX 400 MCG/100 ML INFUS..BTL IV PRN (05:36)
[2020-03-05] MEDS: MERREM VIAL 500 MG in NS 100 ML IV + SPIKE MINIBAG* 100 ML IV SCH ×3 (06:00→22:03)
[2020-03-05 06:09] LABS: BASOPHILS % (AUTO) 0 % (0.2-1.0); HEMATOCRIT 28.8 % (36.0-47.0); HEMOGLOBIN 9.7 g/dL (12.0-16.0); LYMPHOCYTES # (AUTO) 0.4 X10^3/uL (1.3-2.9); LYMPHOCYTES % (AUTO) 3.1 % (21.0-51.0); MEAN CORPUSCULAR HEMOGLOBIN 30.1 pg (27.0-34.0); MEAN CORPUSCULAR HGB CONC 33.7 g/dL (33.0-35.0); MEAN CORPUSCULAR VOLUME 89.5 fL (80.0-100.0); MEAN PLATELET VOLUME 9.2 fL (7.4-11.0); MONOCYTES # (AUTO) 0.3 x10^3/uL (0.3-0.8); MONOCYTES % (AUTO) 2.4 % (0.0-13.0); NEUTROPHILS # (AUTO) 11.8 x10^3/uL (2.2-4.8); NEUTROPHILS % (AUTO) 94.5 % (42.0-75.0); PLATELET COUNT 100 X10^3/uL (150.0-450.0); RED BLOOD COUNT 3.22 X10^6/uL (3.5-5.4); RED CELL DISTRIBUTION WIDTH 13.5 % (11.6-16.5); WHITE BLOOD COUNT 12.5 X10^3/uL (3.6-10.0)
[2020-03-05 06:13] LABS: ALANINE AMINOTRANSFERASE 98 Units/L (12-78); ALBUMIN 1.8 g/dL (3.4-5.0); ALKALINE PHOSPHATASE 93 Units/L (46-116); ASPARTATE AMINO TRANSFERASE 202 Units/L (15-37); BLOOD UREA NITROGEN 15 mg/dL (7-18); CALCIUM 7.4 mg/dL (8.5-10.1); CHLORIDE 107 mmol/L (98-107); COR CA(FOR HYPOALB) 9.2 mg/dL (8.5-10.1); COR NA(FOR HYPERGLY) 145 mmol/L (136-145); CREATININE 0.32 mg/dL (0.55-1.02); SODIUM 144 mmol/L (136-145); eGFR NON BLACK RACES > 60 (>60)
--- NOTE | 2020-03-05 06:32 | RAD ---
HISTORYFollow up respiratory failureSTUDYChest AP [id number] February 2020FINDINGSThere is an endotracheal tube in good position. There is a nasogastric tube in good position. There is a right IJ line in good position. Heart is within normal limits in size. Pneumomediastinum again identified with decreasing subcutaneous emphysema in the neck. Left pneumothorax no longer identified. Bilateral interstitial and ground-glass infiltrates unchanged. No pleural effusions are identified. Bony thorax is unremarkable.IMPRESSIONNo change bilateral interstitial and ground-glass infiltratesNo change pneumomediastinum but with decreasing subcutaneous emphysemaNo definite left pneumothorax on today's examination.Electronically signed by: RAGINI CERRATO (Mar 05, 2020 06:30:34)
--- NOTE | 2020-03-05 06:41 | RAD ---
HISTORYNG TUBE PLACEMENTSTUDYKUBCOMPARISONNoneTECHNIQUEKUB, 2 imagesFINDINGSNG tube terminates in the stomach with t he side port near the GE junction. Patient is rotated. Scoliosis. Left base airspace disease is noted .IMPRESSIONNG tube with tip in the stomach. The side port is near the GE junction and the tube could be advanced 2-3 more cm for more optimal positioning.Electronically signed by: Alek Dow (Mar 05 06:40:26)
[2020-03-05 06:50] LABS: BAND NEUTROPHILS % 1 % (0-10); PLATELET MORPHOLOGY COMMENT NORMAL (NORMAL)
[2020-03-05] MEDS: ALBUMIN HUMAN 25%- 100 ML 100 ML IV SCH ×2 (08:43→23:10)
[2020-03-05] MEDS: ELIQUIS PO SCH ×2 (08:44→21:25)
[2020-03-05] MEDS: IVERMECTIN PO SCH (08:45)
[2020-03-05] MEDS: PROTONIX INJ 40 MG VIAL IVP SCH (08:46)
[2020-03-05] MEDS: LIPITOR TAB 40 MG PO SCH (08:46)
[2020-03-05] MEDS: ROBITUSSIN DM PO SCH ×4 (08:47→21:25)
[2020-03-05] MEDS: VSL#3 PO SCH (08:47)
[2020-03-05] MEDS: ZINC SULFATE PO SCH ×2 (08:47→21:25)
[2020-03-05] MEDS: SYNTHROID 50 mcg TAB PO SCH (08:47)
[2020-03-05] MEDS: VITAMIN D3 125 mcg (5,000 UNITS) PO SCH (08:48)
[2020-03-05] MEDS: VITAMIN A PO SCH (08:48)
[2020-03-05] MEDS: CARDIZEM ER 60 MG 12-HR PO SCH (08:49)
[2020-03-05] MEDS: DUONEB 0.5 MG/3 MG (3 mL) NEB SCH ×4 (09:35→21:30)
[2020-03-05] MEDS: ATIVAN 20 MG/10 ML VIAL 20 MG in NS 100 ML IV 90 ML IV PRN ×2 (10:30→20:25)
[2020-03-05 12:02] LABS: ABG BASE EXCESS 10.3 mmol/L (-2.0-2.0)
[2020-03-05 12:03] LABS: ABG HCO3 37.5 mmol/L (22-26)
[2020-03-05 14:52] LABS: ABG HCO3 35.4 mmol/L (22-26)
[2020-03-05] MEDS: NEURONTIN CAP 300 MG PO SCH (21:25)
[2020-03-06] MEDS: COLACE CAP 100 MG PO SCH ×2 (01:07→22:25)
[2020-03-06] MEDS: MILK OF MAGNESIA PO SCH ×3 (01:09→22:25)
[2020-03-06] MEDS: LR 1000 ML IV 1,000 ML IV SCH ×4 (01:11→23:00)
[2020-03-06] MEDS: ASCORBIC ACID INJ MULTI-DOSE VIAL 1,500 MG in NS 50 ML IV 50 ML IV SCH ×3 (02:24→15:30)
[2020-03-06 04:50] LABS: ABG BASE EXCESS 11.6 mmol/L (-2.0-2.0)
[2020-03-06 04:51] LABS: ABG HCO3 37.1 mmol/L (22-26)
[2020-03-06 05:45] LABS: BASOPHILS % (AUTO) 0.1 % (0.2-1.0); EOSINOPHILS # (AUTO) 0.3 x10^3/uL (0.0-0.2); EOSINOPHILS % (AUTO) 2.2 % (0.9-2.9); HEMATOCRIT 32.2 % (36.0-47.0); HEMOGLOBIN 10.5 g/dL (12.0-16.0); LYMPHOCYTES # (AUTO) 0.5 X10^3/uL (1.3-2.9); LYMPHOCYTES % (AUTO) 3.7 % (21.0-51.0); MEAN CORPUSCULAR HEMOGLOBIN 29.1 pg (27.0-34.0); MEAN CORPUSCULAR HGB CONC 32.4 g/dL (33.0-35.0); MEAN CORPUSCULAR VOLUME 89.7 fL (80.0-100.0); MONOCYTES # (AUTO) 0.3 x10^3/uL (0.3-0.8); MONOCYTES % (AUTO) 1.8 % (0.0-13.0); NEUTROPHILS # (AUTO) 12.8 x10^3/uL (2.2-4.8); NEUTROPHILS % (AUTO) 92.2 % (42.0-75.0); PLATELET COUNT 89 X10^3/uL (150.0-450.0); RED BLOOD COUNT 3.59 X10^6/uL (3.5-5.4); RED CELL DISTRIBUTION WIDTH 13.6 % (11.6-16.5); WHITE BLOOD COUNT 13.9 X10^3/uL (3.6-10.0)
[2020-03-06 05:55] LABS: ALANINE AMINOTRANSFERASE 149 Units/L (12-78); ALBUMIN 2.4 g/dL (3.4-5.0); ALKALINE PHOSPHATASE 123 Units/L (46-116); ASPARTATE AMINO TRANSFERASE 330 Units/L (15-37); BLOOD UREA NITROGEN 14 mg/dL (7-18); CALCIUM 7.3 mg/dL (8.5-10.1); CARBON DIOXIDE 35.3 mmol/L (21-32); CHLORIDE 104 mmol/L (98-107); COR CA(FOR HYPOALB) 8.6 mg/dL (8.5-10.1); COR NA(FOR HYPERGLY) 142 mmol/L (136-145); CREATININE 0.19 mg/dL (0.55-1.02); SODIUM 141 mmol/L (136-145); TOTAL PROTEIN 4.3 g/dL (6.4-8.2); eGFR NON BLACK RACES > 60 (>60)
[2020-03-06] MEDS: MERREM VIAL 500 MG in NS 100 ML IV + SPIKE MINIBAG* 100 ML IV SCH ×2 (06:04→14:15)
[2020-03-06 07:45] LABS: BAND NEUTROPHILS % 2 % (0-10)
[2020-03-06 07:46] LABS: PLATELET MORPHOLOGY COMMENT NORMAL (NORMAL)
[2020-03-06] MEDS: ATIVAN 20 MG/10 ML VIAL 20 MG in NS 100 ML IV 90 ML IV PRN ×2 (08:00→18:48)
[2020-03-06] MEDS: DUONEB 0.5 MG/3 MG (3 mL) NEB SCH ×4 (09:11→20:00)
[2020-03-06] MEDS: ALBUMIN HUMAN 25%- 100 ML 100 ML IV SCH ×2 (09:42→21:00)
[2020-03-06] MEDS: ELIQUIS PO SCH ×2 (09:43→21:00)
[2020-03-06] MEDS: ZINC SULFATE PO SCH ×2 (09:43→21:00)
[2020-03-06] MEDS: VSL#3 PO SCH (09:44)
[2020-03-06] MEDS: ROBITUSSIN DM PO SCH ×4 (09:44→21:00)
[2020-03-06] MEDS: VITAMIN A PO SCH (09:44)
[2020-03-06] MEDS: VITAMIN D3 125 mcg (5,000 UNITS) PO SCH (09:44)
[2020-03-06] MEDS: SYNTHROID 50 mcg TAB PO SCH (09:44)
[2020-03-06] MEDS: LOPRESSOR TAB 50 MG PO SCH (09:45)
[2020-03-06] MEDS: LIPITOR TAB 40 MG PO SCH (09:45)
[2020-03-06] MEDS: IVERMECTIN PO SCH (09:46)
[2020-03-06] MEDS: PROTONIX INJ 40 MG VIAL IVP SCH (09:46)
[2020-03-06] MEDS: PRECEDEX 400 MCG/100 ML PREMIX 400 MCG/100 ML INFUS..BTL IV PRN (15:30)
[2020-03-06] MEDS ORDERED: NS 500 ML IV 500 ML IV ONE (19:02)
[2020-03-06] MEDS: NEURONTIN CAP 300 MG PO SCH (21:00)
[2020-03-06] MEDS: LEVOPHED INJ 8 MG in D5W 250 ML IV 242 ML IV PRN (23:00)
[2020-03-06] MEDS ORDERED: LEVOPHED INJ ONE (23:05)
[2020-03-06] MEDS ORDERED: NS 250 ML IV 250 ML IV ONE (23:05)
[2020-03-06 23:47] LABS: ABG BASE EXCESS 14.4 mmol/L (-2.0-2.0)
[2020-03-06 23:48] LABS: ABG HCO3 37.4 mmol/L (22-26)
--- NOTE | 2020-03-07 00:01 | RAD ---
STUDY: CHEST, 1 VIEWCOMPARISON: 03/05/2020HISTORY: hypoxiaFINDINGS:Tip of endotracheal tube is 37 mm above the claudia. Enteric tube is seen with tip below the diaphragm. Right IJ central venous line is seen stable with tip overlying the distal SVC.Progressively worsening diffuse alveolar airspace disease is seen throughout the right and left lung.Cardiac silhouette is not clearly delineated on this exam. No gross pleural effusion or gross pneumothorax is seen.IMPRESSION:Progressively worsening alveolar airspace disease is seen throughout the right and left lung suggesting worsening ARDSElectronically signed by: Grant Gutierrez (Mar 07, 2020 00:00:03)
[2020-03-07] MEDS ORDERED: NEXTERONE IV 360 MG PREMIX* 360 MG/200 ML BAG IV ONE ×2 (00:13→06:59)
[2020-03-07] MEDS ORDERED: NEXTERONE IV 150 MG PREMIX* 150 MG/100 ML BAG IV ONE ×2 (00:13→04:05)
[2020-03-07 01:03] LABS: CKMB % 0.4 % (<4); TROPONIN I 0.46 ng/mL (0-1.5)
[2020-03-07 01:05] LABS: CREATINE KINASE MB 37.6 ng/mL (0-4.0)
[2020-03-07 01:08] LABS: ABG BASE EXCESS 7.7 mmol/L (-2.0-2.0)
[2020-03-07 01:10] LABS: ABG HCO3 35.6 mmol/L (22-26)
[2020-03-07] MEDS ORDERED: LASIX ONE (01:23)
[2020-03-07] MEDS ORDERED: LASIX IVP ONE ×4 (01:30→09:02)
[2020-03-07 02:46] LABS: ABG BASE EXCESS 8.9 mmol/L (-2.0-2.0)
[2020-03-07 02:47] LABS: ABG HCO3 37.8 mmol/L (22-26)
[2020-03-07] MEDS: MERREM VIAL 500 MG in NS 100 ML IV + SPIKE MINIBAG* 100 ML IV SCH ×4 (03:00→21:46)
[2020-03-07] MEDS: ATIVAN 20 MG/10 ML VIAL 20 MG in NS 100 ML IV 90 ML IV PRN ×2 (03:27→14:31)
[2020-03-07] MEDS: ASCORBIC ACID INJ MULTI-DOSE VIAL 1,500 MG in NS 50 ML IV 50 ML IV SCH ×5 (03:39→23:00)
[2020-03-07] MEDS ORDERED: NEXTERONE IV 360 MG PREMIX* 360 MG/200 ML BAG IV PRN (04:03)
[2020-03-07 05:13] LABS: BASOPHILS % (AUTO) 0.1 % (0.2-1.0); EOSINOPHILS # (AUTO) 0.2 x10^3/uL (0.0-0.2); HEMATOCRIT 26.7 % (36.0-47.0); HEMOGLOBIN 8.6 g/dL (12.0-16.0); LYMPHOCYTES # (AUTO) 0.3 X10^3/uL (1.3-2.9); LYMPHOCYTES % (AUTO) 1.7 % (21.0-51.0); MEAN CORPUSCULAR HEMOGLOBIN 29.4 pg (27.0-34.0); MEAN CORPUSCULAR HGB CONC 32.3 g/dL (33.0-35.0); MEAN CORPUSCULAR VOLUME 90.9 fL (80.0-100.0); MEAN PLATELET VOLUME 9.3 fL (7.4-11.0); MONOCYTES # (AUTO) 0.3 x10^3/uL (0.3-0.8); MONOCYTES % (AUTO) 2.1 % (0.0-13.0); NEUTROPHILS # (AUTO) 15.8 x10^3/uL (2.2-4.8); NEUTROPHILS % (AUTO) 95.1 % (42.0-75.0); PLATELET COUNT 71 X10^3/uL (150.0-450.0); RED BLOOD COUNT 2.94 X10^6/uL (3.5-5.4); RED CELL DISTRIBUTION WIDTH 13.9 % (11.6-16.5); WHITE BLOOD COUNT 16.6 X10^3/uL (3.6-10.0)
[2020-03-07 05:28] LABS: ALANINE AMINOTRANSFERASE 177 Units/L (12-78); ALBUMIN 2.4 g/dL (3.4-5.0); ALKALINE PHOSPHATASE 184 Units/L (46-116); ASPARTATE AMINO TRANSFERASE 324 Units/L (15-37); BLOOD UREA NITROGEN 20 mg/dL (7-18); CALCIUM 7.2 mg/dL (8.5-10.1); CARBON DIOXIDE 35.4 mmol/L (21-32); CHLORIDE 103 mmol/L (98-107); COR CA(FOR HYPOALB) 8.5 mg/dL (8.5-10.1); COR NA(FOR HYPERGLY) 139 mmol/L (136-145); CREATININE 0.28 mg/dL (0.55-1.02); SODIUM 138 mmol/L (136-145); TOTAL PROTEIN 4.2 g/dL (6.4-8.2); eGFR NON BLACK RACES > 60 (>60)
[2020-03-07 05:49] LABS: PLATELET MORPHOLOGY COMMENT NORMAL (NORMAL)
[2020-03-07 06:07] LABS: ABG BASE EXCESS 7.5 mmol/L (-2.0-2.0)
[2020-03-07 06:08] LABS: ABG HCO3 36.4 mmol/L (22-26)
[2020-03-07] MEDS: LR 1000 ML IV 1,000 ML IV SCH ×3 (06:30→16:00)
[2020-03-07] MEDS: NEXTERONE IV 360 MG PREMIX* 360 MG/200 ML BAG IV PRN ×2 (07:05→20:30)
--- NOTE | 2020-03-07 07:12 | RAD ---
HISTORYcovidSTUDYPortable PA chest, [id number]/23/2021FINDINGSHeart size is probably unchanged although cardiac margins remain partly obscured by adjacent confluent airspace disease in both lungs. There is no evidence for developing extrapulmonary air or large pleural effusion. ET tube tip is 3.3 cm above claudia. NG tube passes below the diaphragm, tip not included.IMPRESSIONPersistent bilateral airspace disease with slight interval improvement in aeration of the lungs. Radiographic appearance is consistent with pneumonia/edema or ARDS.Electronically signed by: ALESSANDRO RAJPUT (Mar 07, 2020 07:10:34)
[2020-03-07] MEDS ORDERED: NS 250 ML IV 250 ML IV ONE ×2 (08:28→16:18)
[2020-03-07] MEDS: ELIQUIS PO SCH (08:30)
[2020-03-07] MEDS: VITAMIN A PO SCH (08:30)
[2020-03-07] MEDS: VSL#3 PO SCH (08:30)
[2020-03-07] MEDS: SYNTHROID 50 mcg TAB PO SCH (08:30)
[2020-03-07] MEDS: VITAMIN D3 125 mcg (5,000 UNITS) PO SCH (08:30)
[2020-03-07] MEDS: PROTONIX INJ 40 MG VIAL IVP SCH (08:30)
[2020-03-07] MEDS: ROBITUSSIN DM PO SCH ×4 (08:30→20:51)
[2020-03-07] MEDS: ZINC SULFATE PO SCH ×2 (08:30→20:45)
[2020-03-07] MEDS: LIPITOR TAB 40 MG PO SCH (08:30)
[2020-03-07] MEDS: DUONEB 0.5 MG/3 MG (3 mL) NEB SCH ×4 (09:35→21:02)
[2020-03-07 10:25] LABS: TROPONIN I 0.44 ng/mL (0-1.5)
[2020-03-07] MEDS: MILK OF MAGNESIA PO SCH ×2 (10:38→20:49)
[2020-03-07 10:50] LABS: CKMB % 0.5 % (<4)
[2020-03-07 11:04] LABS: TROPONIN I 0.54 ng/mL (0-1.5)
[2020-03-07] MEDS: ALBUMIN HUMAN 25%- 100 ML 100 ML IV SCH ×2 (11:16→23:58)
[2020-03-07 11:27] LABS: CKMB % 0.7 % (<4); CREATINE KINASE MB 51.4 ng/mL (0-4.0)
[2020-03-07 12:19] LABS: ABG BASE EXCESS 5.5 mmol/L (-2.0-2.0)
[2020-03-07 12:21] LABS: ABG HCO3 38.1 mmol/L (22-26)
[2020-03-07 15:14] LABS: ABG BASE EXCESS 8.3 mmol/L (-2.0-2.0)
[2020-03-07 15:15] LABS: ABG HCO3 38.6 mmol/L (22-26)
[2020-03-07] MEDS: PRECEDEX 400 MCG/100 ML PREMIX 400 MCG/100 ML INFUS..BTL IV PRN (17:12)
[2020-03-07] MEDS: LACRI-LUBE S.O.P. AFFEYE PRN (17:48)
[2020-03-07 17:55] LABS: BILIRUBIN,URINE NEGATIVE (NEGATIVE); BLOOD/HEMOGLOBIN,URINE 5+ (NEGATIVE); GLUCOSE, URINE NEGATIVE (NEGATIVE); KETONES,URINE NEGATIVE (NEGATIVE); LEUKOCYTE ESTERASE ,URINE NEGATIVE (NEGATIVE); NITRITES,URINE NEGATIVE (NEGATIVE); PROTEIN,URINE 2+ (NEGATIVE); UROBILINOGEN,URINE NORMAL (NORMAL)
[2020-03-07 17:59] LABS: APPEARANCE,URINE CLOUDY (CLEAR); COLOR,URINE DARK YELLOW (YELLOW)
[2020-03-07 18:07] LABS: GASTRIC OCCULT BLOOD POSITIVE (NEGATIVE); PH,GASTRIC FLUID 2
[2020-03-07 18:13] LABS: RBC,URINE TNTC /HPF (0-3)
[2020-03-07 18:14] LABS: AMORPHOUS SEDIMENT,UR TRACE /HPF (NEGATIVE); BACTERIA,URINE 1+ /HPF (NEGATIVE); SQUAMOUS EPITHELIAL CELL,UR RARE /HPF (NEGATIVE)
[2020-03-07 18:15] LABS: FINE GRANULAR CASTS,URINE MODERATE /LPF (NEGATIVE)
[2020-03-07] MEDS: PEPCID 20 MG IV PREMIX* 20 MG/50 ML BAG IV SCH (20:45)
[2020-03-07] MEDS: NEURONTIN CAP 300 MG PO SCH (20:45)
[2020-03-07] MEDS: COLACE CAP 100 MG PO SCH (20:46)
[2020-03-08] MEDS: LR 1000 ML IV 1,000 ML IV SCH ×4 (00:59→20:15)
[2020-03-08] MEDS: ATIVAN 20 MG/10 ML VIAL 20 MG in NS 100 ML IV 90 ML IV PRN ×2 (01:30→11:45)
[2020-03-08] MEDS: ASCORBIC ACID INJ MULTI-DOSE VIAL 1,500 MG in NS 50 ML IV 50 ML IV SCH ×4 (05:31→21:22)
[2020-03-08] MEDS: MERREM VIAL 500 MG in NS 100 ML IV + SPIKE MINIBAG* 100 ML IV SCH ×3 (06:04→22:30)
[2020-03-08 06:53] LABS: BASOPHILS % (AUTO) 0.3 % (0.2-1.0); EOSINOPHILS # (AUTO) 0.2 x10^3/uL (0.0-0.2); EOSINOPHILS % (AUTO) 2.3 % (0.9-2.9); HEMATOCRIT 33.3 % (36.0-47.0); HEMOGLOBIN 11.5 g/dL (12.0-16.0); LYMPHOCYTES # (AUTO) 0.2 X10^3/uL (1.3-2.9); MEAN CORPUSCULAR HEMOGLOBIN 30.6 pg (27.0-34.0); MEAN CORPUSCULAR HGB CONC 34.6 g/dL (33.0-35.0); MEAN CORPUSCULAR VOLUME 88.5 fL (80.0-100.0); MONOCYTES # (AUTO) 0.2 x10^3/uL (0.3-0.8); MONOCYTES % (AUTO) 2.1 % (0.0-13.0); NEUTROPHILS # (AUTO) 8.5 x10^3/uL (2.2-4.8); NEUTROPHILS % (AUTO) 93.3 % (42.0-75.0); PLATELET COUNT 53 X10^3/uL (150.0-450.0); RED BLOOD COUNT 3.76 X10^6/uL (3.5-5.4); RED CELL DISTRIBUTION WIDTH 13.7 % (11.6-16.5); WHITE BLOOD COUNT 9.1 X10^3/uL (3.6-10.0)
--- NOTE | 2020-03-08 07:17 | RAD ---
HISTORYCOVID PNEUMONIASTUDYCHEST, 1 VIEWCOMPARISONOne day prior.TECHNIQUEAP view of the chestFINDINGSET tube in good position. Right IJ central line in good position. NG tube terminates just within the stomach with the side port in the distal esophagus. Cardiac and mediastinal contours are within normal limits. Air interface along the left mediastinum and left heart border. Air to the right of the trachea. There is pneumomediastinum. Mild improvement in diffuse bilateral airspace opacities. No definite pleural effusion or pneumothorax.IMPRESSIONMild improvement in bilateral airspace opacities. Suspect pneumomediastinum.Electronically signed by: Alek Dow (Mar 08, 2020 07:16:19)
[2020-03-08 07:18] LABS: ABG BASE EXCESS 9.5 mmol/L (-2.0-2.0)
[2020-03-08 07:18] LABS: BAND NEUTROPHILS % 2 % (0-10); PLATELET MORPHOLOGY COMMENT NORMAL (NORMAL)
[2020-03-08 07:19] LABS: ABG HCO3 37.8 mmol/L (22-26)
[2020-03-08 07:23] LABS: ALANINE AMINOTRANSFERASE 186 Units/L (12-78); ALBUMIN 2.3 g/dL (3.4-5.0); ALKALINE PHOSPHATASE 181 Units/L (46-116); ASPARTATE AMINO TRANSFERASE 288 Units/L (15-37); BLOOD UREA NITROGEN 23 mg/dL (7-18); CALCIUM 7.3 mg/dL (8.5-10.1); CARBON DIOXIDE 32.1 mmol/L (21-32); CHLORIDE 103 mmol/L (98-107); COR CA(FOR HYPOALB) 8.7 mg/dL (8.5-10.1); CREATININE 0.52 mg/dL (0.55-1.02); SODIUM 141 mmol/L (136-145); TOTAL PROTEIN 4.2 g/dL (6.4-8.2); TROPONIN I 0.64 ng/mL (0-1.5); eGFR NON BLACK RACES > 60 (>60)
[2020-03-08 07:39] LABS: CKMB % 0.9 % (<4)
[2020-03-08 07:40] LABS: CREATINE KINASE 5993 Units/L (26-192); CREATINE KINASE MB 52.3 ng/mL (0-4.0)
[2020-03-08] MEDS: DUONEB 0.5 MG/3 MG (3 mL) NEB SCH ×4 (08:50→21:44)
[2020-03-08] MEDS: ZINC SULFATE PO SCH ×2 (09:05→20:30)
[2020-03-08] MEDS: VSL#3 PO SCH (09:06)
[2020-03-08] MEDS: VITAMIN D3 125 mcg (5,000 UNITS) PO SCH (09:06)
[2020-03-08] MEDS: VITAMIN A PO SCH (09:06)
[2020-03-08] MEDS: SYNTHROID 50 mcg TAB PO SCH (09:06)
[2020-03-08] MEDS: ROBITUSSIN DM PO SCH ×4 (09:07→20:30)
[2020-03-08] MEDS: PROTONIX INJ 40 MG VIAL IVP SCH (09:07)
[2020-03-08] MEDS: MILK OF MAGNESIA PO SCH ×2 (09:08→21:55)
[2020-03-08] MEDS: LIPITOR TAB 40 MG PO SCH (09:08)
[2020-03-08] MEDS: ALBUMIN HUMAN 25%- 100 ML 100 ML IV SCH ×2 (09:44→20:20)
[2020-03-08] MEDS: PEPCID 20 MG IV PREMIX* 20 MG/50 ML BAG IV SCH ×2 (11:10→21:55)
[2020-03-08 11:42] LABS: ABG BASE EXCESS 6.2 mmol/L (-2.0-2.0)
[2020-03-08 11:44] LABS: ABG HCO3 36.4 mmol/L (22-26)
--- NOTE | 2020-03-08 13:18 | US ---
HISTORYCOVID, ELEV LFTSSTUDYABDOMEN USCOMPARISONNoneTECHNIQUEMultiple jordan scale and color flow Doppler images of the abdomen were obtained.FINDINGSThe liver is echogenic and upper limits of normal in size measuring 15 cm sagittal. This is suggestive of fatty liver. There are no focal lesions or dilated ducts. There is normal flow in the main portal vein hepatic artery and hepatic veins. No intraparenchymal mass or intrahepatic biliary ductal dilatation can be identified. The gallbladder is not visualized and may be contracted or surgically absent. The common bile duct is normal measuring 4 mm.The spleen is normal in echotexture and size. The pancreas is obscured by bowel gas.The right and left kidney are normal in echotexture and size. The right kidney measures 7.2 cm by 6 6.1 x 10.4 cm in length. Cortical thickness is 1.9 cm. The left kidney measures 11.5 cm in length by 5.3 x 5.3 cm with a cortical thickness of 1.5 cm.. No mass, hydronephrosis, or stone can be identified.The visualized portions of the abdominal aorta are normal in size without aneurysmal dilatation.IMPRESSIONThe liver is echogenic and borderline enlarged suggesting fatty liver but no focal lesions are observed.The pancreas and IVC are obscured by bowel gas.The gallbladder is not imaged and may be contracted or surgically absent.The kidneys are normal.The spleen is normal.Electronically signed by: ALONA EID (Mar 08, 2020 13:16:26)
[2020-03-08] MEDS: LEVOPHED INJ 8 MG in D5W 250 ML IV 242 ML IV PRN (13:19)
[2020-03-08] MEDS: VERSED IV PREMIX 100 MG/100 ML IV.SOLN IV PRN (14:41)
[2020-03-08 14:54] LABS: ABG BASE EXCESS 8.6 mmol/L (-2.0-2.0)
[2020-03-08 14:56] LABS: ABG HCO3 36.7 mmol/L (22-26)
[2020-03-08] MEDS: CORDARONE TAB 200 MG NG SCH (17:40)
[2020-03-08 18:39] LABS: ABG BASE EXCESS 10.6 mmol/L (-2.0-2.0)
[2020-03-08 18:41] LABS: ABG HCO3 37.4 mmol/L (22-26)
[2020-03-08] MEDS: NEURONTIN CAP 300 MG PO SCH (20:30)
[2020-03-08] MEDS: COLACE CAP 100 MG PO SCH (20:30)
[2020-03-08 21:39] LABS: ABG BASE EXCESS 9.4 mmol/L (-2.0-2.0)
[2020-03-08 21:40] LABS: ABG HCO3 36.7 mmol/L (22-26)
[2020-03-08] MEDS: PRECEDEX 400 MCG/100 ML PREMIX 400 MCG/100 ML INFUS..BTL IV PRN (22:30)
[2020-03-09] MEDS: LR 1000 ML IV 1,000 ML IV SCH ×3 (01:59→17:19)
[2020-03-09] MEDS: ASCORBIC ACID INJ MULTI-DOSE VIAL 1,500 MG in NS 50 ML IV 50 ML IV SCH ×3 (02:18→15:37)
[2020-03-09] MEDS: VERSED IV PREMIX 100 MG/100 ML IV.SOLN IV PRN ×2 (04:02→18:38)
[2020-03-09] MEDS: MERREM VIAL 500 MG in NS 100 ML IV + SPIKE MINIBAG* 100 ML IV SCH ×2 (05:00→13:52)
[2020-03-09 05:30] LABS: ABG HCO3 35.3 mmol/L (22-26)
[2020-03-09 06:17] LABS: BASOPHILS % (AUTO) 0.1 % (0.2-1.0); EOSINOPHILS # (AUTO) 0.2 x10^3/uL (0.0-0.2); EOSINOPHILS % (AUTO) 2.3 % (0.9-2.9); HEMATOCRIT 36.4 % (36.0-47.0); HEMOGLOBIN 12.4 g/dL (12.0-16.0); LYMPHOCYTES # (AUTO) 0.2 X10^3/uL (1.3-2.9); LYMPHOCYTES % (AUTO) 2.2 % (21.0-51.0); MEAN CORPUSCULAR HEMOGLOBIN 30.7 pg (27.0-34.0); MEAN CORPUSCULAR HGB CONC 34.1 g/dL (33.0-35.0); MEAN CORPUSCULAR VOLUME 89.8 fL (80.0-100.0); MEAN PLATELET VOLUME 9.8 fL (7.4-11.0); MONOCYTES # (AUTO) 0.1 x10^3/uL (0.3-0.8); MONOCYTES % (AUTO) 2.1 % (0.0-13.0); NEUTROPHILS # (AUTO) 6.6 x10^3/uL (2.2-4.8); NEUTROPHILS % (AUTO) 93.3 % (42.0-75.0); PLATELET COUNT 62 X10^3/uL (150.0-450.0); RED BLOOD COUNT 4.05 X10^6/uL (3.5-5.4); RED CELL DISTRIBUTION WIDTH 14.3 % (11.6-16.5); WHITE BLOOD COUNT 7.1 X10^3/uL (3.6-10.0)
[2020-03-09] MEDS: CORDARONE TAB 200 MG NG SCH ×2 (06:17→17:17)
[2020-03-09 06:23] LABS: ALANINE AMINOTRANSFERASE 187 Units/L (12-78); ALBUMIN 2.5 g/dL (3.4-5.0); ALKALINE PHOSPHATASE 213 Units/L (46-116); ASPARTATE AMINO TRANSFERASE 266 Units/L (15-37); BLOOD UREA NITROGEN 30 mg/dL (7-18); CALCIUM 7.5 mg/dL (8.5-10.1); CARBON DIOXIDE 33.8 mmol/L (21-32); CHLORIDE 103 mmol/L (98-107); COR CA(FOR HYPOALB) 8.7 mg/dL (8.5-10.1); COR NA(FOR HYPERGLY) 143 mmol/L (136-145); CREATININE 0.83 mg/dL (0.55-1.02); SODIUM 141 mmol/L (136-145); TOTAL PROTEIN 4.4 g/dL (6.4-8.2); eGFR NON BLACK RACES > 60 (>60)
[2020-03-09 06:58] LABS: BAND NEUTROPHILS % 5 % (0-10); PLATELET MORPHOLOGY COMMENT NORMAL (NORMAL)
--- NOTE | 2020-03-09 07:24 | RAD ---
HISTORYCOVID+; F/USTUDYCHEST, 1 VIEWCOMPARISONOne day prior.TECHNIQUEAP view of the chestFINDINGSRight IJ central line in good position. ET tube in good position. NG tube courses below the visualized field of view. Cardiac and mediastinal contours are within normal limits. Decreased pneumomediastinum. Stable diffuse bilateral airspace opacities. No definite pleural effusion or pneumothorax.IMPRESSIONDecreased pneumomediastinum. No significant change in diffuse bilateral airspace opacities.Electronically signed by: Alek Dow (Mar 09, 2020 07:22:01)
[2020-03-09] MEDS: DUONEB 0.5 MG/3 MG (3 mL) NEB SCH ×3 (08:25→16:51)
[2020-03-09] MEDS ORDERED: POTASSIUM CHLORIDE LIQ 20 MEQ UDC NG SCH (09:00)
[2020-03-09] MEDS: ZINC SULFATE PO SCH (09:19)
[2020-03-09] MEDS: VITAMIN A PO SCH (09:19)
[2020-03-09] MEDS: VITAMIN D3 125 mcg (5,000 UNITS) PO SCH (09:19)
[2020-03-09] MEDS: VSL#3 PO SCH (09:19)
[2020-03-09] MEDS: ROBITUSSIN DM PO SCH ×3 (09:20→17:17)
[2020-03-09] MEDS: PROTONIX INJ 40 MG VIAL IVP SCH (09:20)
[2020-03-09] MEDS: MILK OF MAGNESIA PO SCH (09:20)
[2020-03-09] MEDS: SYNTHROID 50 mcg TAB PO SCH (09:20)
[2020-03-09] MEDS: LIPITOR TAB 40 MG PO SCH (09:20)
[2020-03-09] MEDS: PEPCID 20 MG IV PREMIX* 20 MG/50 ML BAG IV SCH (09:30)
[2020-03-09] MEDS: ALBUMIN HUMAN 25%- 100 ML 100 ML IV SCH (09:58)
[2020-03-09] MEDS ORDERED: LASIX IVP ONE (11:12)
[2020-03-09] MEDS ORDERED: CORDARONE TAB 200 MG PO ONE (11:30)
[2020-03-09] MEDS: LEVOPHED INJ 8 MG in D5W 250 ML IV 242 ML IV PRN (18:03)
[2020-03-09] MEDS: TYLENOL 500 MG TAB EXTRA STRENGTH PO PRN (19:27)
[2020-03-09] MEDS ORDERED: TYGACIL 50 MG VIAL 100 MG in NS 100 ML IV 100 ML IV ONE (21:00)
[2020-03-09] MEDS ORDERED: DEPO-Medrol 80 MG VIAL IM ONE (21:25)
[2020-03-09] MEDS ORDERED: SOLU-Medrol 125 MG VIAL IVP ONE (21:33)
[2020-03-09] MEDS ORDERED: SOLU-Medrol 125 MG VIAL ONE (21:33)
[2020-03-10 03:50] VITALS: BP 00/00
[2020-03-10] MEDS ORDERED: TYGACIL 50 MG VIAL 50 MG in NS 100 ML IV 100 ML IV SCH (09:00)
== END 2020-03-09 22:04 | disposition expired | DRG 177 ==
LOC: ER 14:52 → OBS 20:38 → MED/SURG 02-12 14:43 → ICU 02-22 15:15
PROVIDERS: ADMIT Family Medicine; ATTEND Family Medicine
DX: R79.89 Other specified abnormal findings of blood chemistry; R06.02 Shortness of breath; K44.9 Diaphragmatic hernia without obstruction or gangrene; R79.82 Elevated C-reactive protein (CRP); I48.91 Unspecified atrial fibrillation; I46.9 Cardiac arrest, cause unspecified; R26.89 Other abnormalities of gait and mobility; E03.8 Other specified hypothyroidism; G35 Multiple sclerosis; U07.1 COVID-19; J96.01 Acute respiratory failure with hypoxia; J12.89 Other viral pneumonia